=== PATIENT | female | born 1955 | race Caucasian/White ===

== ENCOUNTER → 2019-10-28 13:44 | Outpatient (BNVA) | payer MEDICARE, MEDICAID, SELFPAY | PROVIDERS: Family Provider Family Medicine; PCP Family Medicine; Visit Provider Nurse Practitioner | DX: G89.29 Other chronic pain (principal); M54.42 Lumbago with sciatica, left side; M54.41 Lumbago with sciatica, right side; M54.16 Radiculopathy, lumbar region; M25.511 Pain in right shoulder; M25.512 Pain in left shoulder; R10.12 Left upper quadrant pain; M25.551 Pain in right hip; F17.210 Nicotine dependence, cigarettes, uncomplicated; Z79.891 Long term (current) use of opiate analgesic | CPT/HCPCS: 99214 ==

== ENCOUNTER 2019-12-22 14:32 | Emergency (ER) | payer MEDICARE, MEDICAID, SELFPAY ==
[2019-12-22 14:36] VITALS: BP 157/113; PULSE 102; RESP 17; TEMP 36.6; O2SAT 96; BMI 27.4
[2019-12-22 15:00] VITALS: BP 133/90; PULSE 94; RESP 18; TEMP 36.7; O2SAT 97
--- NOTE | 2019-12-22 15:09 | XR_ITS ---
WS: [id number] XR ribs RT mn 3V w CXR1V [id number] REASON FOR EXAM: fall FINDINGS: Small blebs are seen along the lateral right lower chest. There is also a bleb off the infe rior right hilum. Comparisons were made to 02/14/2016. There is no interval changes. The heart mediastinum are normal. The lungs are well aerated no pneumonia, pleural effusion, pulmonary edema, or mass effect. XR/XR ribs RT mn 3V w CXR1V [id number] IMPRESSION: Small blebs in the right lung base Otherwise negative chest for active pathology.
--- NOTE | 2019-12-22 15:09 | XR_ITS ---
WS: [id number] XR wrist RT min 3V* [id number] REASON FOR EXAM: fall FINDINGS: The first metacarpal shows degenerate changes along is distal aspects articulating with the first phalanx. There is mild degenerate changes in the greater lesser multangular. The ulna and radius are normal. No fractures are seen. 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 No fractures of the wrist.
--- NOTE | 2019-12-22 15:09 | W.ED.FALL ---
HPI - Fall General: Chief Complaint: Fall Stated Complaint: Rib pain and wrist pain Time Seen by Provider: 12/22/19 14:57 History of Present Illness: HPI Narrative: Patient complains about right rib pain and right wrist pain from 2 falls over last 2 days. Patient has a bad hip she says she is going to have surgery on some day and that affects her gait at times and she tripped over her animals. She denies any swelling does take her medication as prescribed MD complaint: fall Onset (ago): day(s) Fall from: standing Fall witnessed: no Place fall occurred: home Loss of consciousness: None Symptoms prior to fall: none Context: tripped/slipped Location of injury: chest Location of injury - extremities: Right: arm Severity: mild Severity scale (1-10): 3 Quality: aching Associated symptoms-after fall: Reports no associated symptoms; Denies abdominal pain, chest pain or headache(s) Review of Systems Narrative: Right rib pain Const: Denies: fever, chills or body aches Eyes: Denies: change in vision or blurry vision ENMT: Denies: throat pain or nasal congestion Card: Denies: chest pain or shortness of breath on exertion Resp: Denies: shortness of breath, productive cough or non-productive cough GI: Denies: abdominal pain, nausea or vomiting Musc: Reports: joint pain; Denies: extremity pain or joint swelling Skin/Breast: Reports: other (Has abrasions to her lips); Denies: rash Neuro: Denies: headache Psych: Denies: anxiety or depression Boubacar/Lymph: Denies: easy bruising FORMERLY [facility], 1928–1983 ED PFSH: Surgical History (Updated 10/28/19 @ 14:40 by TAMMY Bajwa) S/P laparotomy EXPLORATORY AGE 30YRS S/P partial hysterectomy 30 YEARS OLD S/P tubal ligation 1981 Social History Smoking and tobacco status: current every day smoker cigarettes Alcohol intake: current Physical Exam Narrative: EXAM NARRATIVE: Patient has no bruising and or swelling or abrasions noted to any area. Const: COMMON NORMALS: no apparent distress, average body habitus and oriented x3 HENMT: COMMON NORMALS: normocephalic HEAD & SCALP: normal to inspection and normocephalic FACE & SINUS: normal facial exam Eye: COMMON NORMALS: conjunctivae normal GENERAL EYE: normal appearance of both eyes CONJUNCTIVA: Yes conjunctivae normal Neck/C-Spine: COMMON NORMALS: no JVD Chest: COMMONS NORMALS: inspection of chest normal CHEST: Yes other (Tenderness to the right rib area below the breast lateral no bruising or swelling noted no abrasions) Resp: COMMON NORMALS: normal respiratory effort and clear to auscultation bilaterally AUSCULTATION: clear to auscultation bilaterally Cardio: COMMON NORMALS: no JVD, regular rate and regular rhythm RATE: regular rate RHYTHM: regular rhythm GI: COMMON NORMALS: normal to inspection, nondistended, normoactive bowel sounds Extremity: COMMON NORMALS: normal to inspection and full ROM RIGHT UPPER EXTREMITY: Yes wrist (Tender without swelling has good range of motion) Neuro: COMMON NORMALS: oriented x3 Course Vital Signs: Vital signs: Vital Signs Temperature 98.0 F 12/22/19 15:00 Pulse Rate 94 12/22/19 15:00 Respiratory Rate 18 12/22/19 15:00 Blood Pressure 133/90 12/22/19 15:00 Pulse Oximetry 97 12/22/19 15:00 MDM - Fall MDM Narrative: Medical decision making narrative: On discharge patient is asking for a stronger pain medication she already takes oxycodone 5 times per day Discharge Plan Discharge Patient Disposition: Home, Self-Care Clinical Impression: Drug-seeking behavior Contusion of rib on right side Qualifiers: Encounter type: initial encounter Qualified Code(s): S20.211A - Contusion of right front wall of thorax, initial encounter Sprain of wrist, right Qualifiers: Encounter type: initial encounter Qualified Code(s): S63.501A - Unspecified sprain of right wrist, initial encounter Condition: Stable Prescriptions: No Action clopidogrel [Plavix] 75 mg tablet 75 mg PO DAILY RF: 0 cyclobenzaprine 10 mg tablet 10 mg PO TID PRNRF: 0 potassium chloride [Klor-Con M20] 20 mEq tablet,ER particles/crystals 20 meq PO .DAY RF: 0 metoprolol tartrate 50 mg tablet 50 mg PO BID RF: 0 nitroglycerin [Nitrostat] 0.4 mg tablet, sublingual 0.4 mg SUBLINGUAL Q5M PRNRF: 0 fluoxetine [Prozac] 20 mg capsule 20 mg PO .DAY RF: 0 topiramate [Topamax] 50 mg tablet 50 mg PO BID RF: 0 pantoprazole [Protonix] 40 mg tablet,delayed release (DR/EC) 40 mg PO BID RF: 0 ranitidine HCl 150 mg tablet 150 mg PO BID RF: 0 cyclobenzaprine 10 mg tablet 10 mg PO TID Qty: 90 RF: 1 cyclobenzaprine 10 mg tablet 10 mg PO TID MDD 3 Qty: 90 RF: 1 oxycodone 15 mg tablet 15 mg PO .FIVE TIMES PER DAY PRN (Reason: pain) 30 Days Qty: 150 RF: 0 oxycodone 15 mg tablet 15 mg PO .5 times a day PRN (Reason: pain) 30 Days Qty: 150 RF: 0 lisinopril 10 mg tablet 10 mg PO DAILY Qty: 30 RF: 5 Repatha SureClick 140 mg/mL pen injector 140 mg SUBCUT .TWO TIMES A MONTH Qty: 2 RF: 5 Discharge Orders: Discharge Order (Routine); Ordered 12/22/19 Ordered By: Nayan Payan Referrals: Anabel Bishop MD [Primary Care Provider] - Discharge Diet: Usual diet Discharge Activity: Resume usual activity Patient Instructions: Contusion in Adults (ED), Wrist Sprain (ED) Activity Restrictions/Additional Instructions: Follow-up with medical provider as directed. Take medications as prescribed. Return to the ER or your medical provider if condition worsens. Please read and understand discharge instructions. If any questions ask please. Can use ice. Coding Level of Care Code ED Refrigeration Mechanic Helper for Yanet Fwd Exam Comprehensive
[2019-12-22 16:22] VITALS: BP 132/86; PULSE 81; RESP 18; TEMP 36.6; O2SAT 96
== END 2019-12-22 16:23 | disposition home or self-care (01) ==
PROVIDERS: Emergency Provider Nurse Practitioner Family; Family Provider Family Medicine; PCP Family Medicine
DX: Z76.5 Malingerer [conscious simulation] (principal); S20.211A Contusion of right front wall of thorax, initial encounter; S63.501A Unspecified sprain of right wrist, initial encounter; F17.210 Nicotine dependence, cigarettes, uncomplicated; W01.0XXA Fall on same level from slipping, tripping and stumbling without subsequent striking against object, initial encounter; J43.9 Emphysema, unspecified
CPT/HCPCS: 12345; 71101; 73110; 99281; 99283

== ENCOUNTER → 2019-12-27 13:12 | Outpatient (BNVA) | payer MEDICARE, MEDICAID, SELFPAY | PROVIDERS: Family Provider Family Medicine; PCP Family Medicine; Visit Provider Anesthesiology | DX: G89.29 Other chronic pain (principal); M54.16 Radiculopathy, lumbar region; M54.6 Pain in thoracic spine; M25.551 Pain in right hip; F17.210 Nicotine dependence, cigarettes, uncomplicated; Z79.891 Long term (current) use of opiate analgesic | CPT/HCPCS: 99214 ==

== ENCOUNTER → 2020-03-27 14:42 | Outpatient (BNVA) | payer MEDICARE, MEDICAID, SELFPAY | PROVIDERS: Family Provider Family Medicine; PCP Family Medicine; Visit Provider Nurse Practitioner | DX: G89.29 Other chronic pain (principal); M54.16 Radiculopathy, lumbar region; M25.551 Pain in right hip; M54.6 Pain in thoracic spine; F17.210 Nicotine dependence, cigarettes, uncomplicated; Z79.891 Long term (current) use of opiate analgesic; Z91.81 History of falling | CPT/HCPCS: 99214 ==

== ENCOUNTER → 2020-05-22 13:10 | Outpatient (BNVA) | payer MEDICARE, MEDICAID, SELFPAY | PROVIDERS: Family Provider Family Medicine; PCP Family Medicine; Visit Provider Anesthesiology | DX: G89.29 Other chronic pain (principal); M54.16 Radiculopathy, lumbar region; M54.6 Pain in thoracic spine; M25.551 Pain in right hip; F17.210 Nicotine dependence, cigarettes, uncomplicated; Z79.891 Long term (current) use of opiate analgesic; Z71.6 Tobacco abuse counseling | CPT/HCPCS: 99214 ==

== ENCOUNTER → 2020-07-24 13:17 | Outpatient (BNVA) | payer MEDICARE, MEDICAID, SELFPAY | PROVIDERS: Family Provider Family Medicine; PCP Family Medicine; Visit Provider Anesthesiology | DX: G89.29 Other chronic pain (principal); M54.16 Radiculopathy, lumbar region; M25.551 Pain in right hip; M54.6 Pain in thoracic spine; F17.210 Nicotine dependence, cigarettes, uncomplicated; Z79.891 Long term (current) use of opiate analgesic | CPT/HCPCS: 99214 ==

== ENCOUNTER → 2020-08-21 13:04 | Outpatient (BNVA) | payer MEDICARE, MEDICAID, SELFPAY | PROVIDERS: Family Provider Family Medicine; PCP Family Medicine; Visit Provider Anesthesiology | DX: G89.29 Other chronic pain (principal); M25.551 Pain in right hip; M54.16 Radiculopathy, lumbar region; M54.6 Pain in thoracic spine; F17.210 Nicotine dependence, cigarettes, uncomplicated; Z79.891 Long term (current) use of opiate analgesic | CPT/HCPCS: 99214 ==

== ENCOUNTER → 2020-10-23 13:58 | Outpatient (BNVA) | payer MEDICARE, MEDICAID, SELFPAY | PROVIDERS: Family Provider Family Medicine; PCP Family Medicine; Visit Provider Anesthesiology | DX: G89.29 Other chronic pain (principal); M54.16 Radiculopathy, lumbar region; M54.6 Pain in thoracic spine; M25.551 Pain in right hip; F17.210 Nicotine dependence, cigarettes, uncomplicated; Z79.899 Other long term (current) drug therapy; Z79.891 Long term (current) use of opiate analgesic | CPT/HCPCS: 99214 ==

== ENCOUNTER 2020-10-24 22:36 | Emergency (ER) | payer MEDICARE, MEDICAID, SELFPAY ==
[2020-10-24 22:41] VITALS: BP 140/102; PULSE 93; RESP 16; TEMP 36.8; O2SAT 95; BMI 23.9
[2020-10-24 22:46] VITALS: BP 129/91; PULSE 90; O2SAT 93
--- NOTE | 2020-10-24 22:51 | XR_ITS ---
WS: [id number] [facility], 10/24/2020 Clinical Data: bloating abd pain Comparison: None. Findings: There is an air-filled structure in left side of the abdomen which may represent a dilated stomach. G astric outlet obstruction is possible. There is displacement of the small bowel and colon to the righ t of midline. Small bowel loops are not significantly dilated. There is fecal material in the colon. There are clips in the right upper quadrant from a cholecystectomy. No abnormal calcifications are se en. XR/XR KUB portable [id number] Impression: 1. Left upper quadrant density which probably represents a dilated stomach with gastric outlet obstruction.. 2. Displacement of the small bowel and colon to the right of midline but no sma ll bowel or colon obstruction is noted.
--- NOTE | 2020-10-24 22:51 | W.ED.ABDPA2 ---
HPI - Abdominal Pain General: Chief Complaint: Abdominal Pain Stated Complaint: abd pain Time Seen by Provider: 10/24/20 22:46 History of Present Illness: HPI narrative: Patient arise via ambulance with complaint of sudden onset abdominal pain approximately 45 to 50 minutes ago. Pain is gone now. Patient took more pain pills. Patient said she started bloating and abdomen really started hurting and it eventually went away. Patient she has had some recent problems constipation patient is not on stool softener R laxative MD elicited complaint: abdominal pain Pertinent past history: constipation and other (Chronic pain patient) Onset (ago): minute(s) Pain Consistency: now resolved Location: Diffuse Severity: severe Quality: aching and fullness Radiation: none Migration to: no migration Exacerbating factors: nothing Relieving factors: nothing Associated Symptoms: Reports no associated symptoms; Denies chills, fever(s), nausea and vomiting Review of Systems Const: Denies: fever(s), chills or body aches Eyes: Denies: change in vision or blurry vision ENMT: Denies: throat pain or nasal congestion Card: Denies: chest pain or dyspnea on exertion Resp: Denies: dyspnea, productive cough or non-productive cough GI: Reports: abdominal pain; Denies: nausea or vomiting Musc: Denies: extremity pain Skin/Breast: Denies: rash Neuro: Denies: headache(s) Psych: Denies: anxiety or depression Boubacar/Lymph: Denies: easy bruising PFSH ED PFSH: Medical History 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 Chronic right hip pain Encounter for long-term opiate analgesic use Long-term use of high-risk medication continue to monitor use of medication Risk for falls Smoker Counselled regarding smoking cessation Surgical History S/P laparotomy EXPLORATORY AGE 30YRS S/P partial hysterectomy 30 YEARS OLD S/P tubal ligation 1981 Family History Grandmother Diabetes CAD (coronary artery disease) Father Cancer LEUKEMIA Family/Other Cancer COUSIN - LYMPHOMA CAD (coronary artery disease) UNCLE AND AUNT Other Stroke Social History Smoking and tobacco status: current every day smoker cigarettes Packs smoked per day: 0.5 Second hand smoke exposure: Yes Alcohol intake: never History of recent travel: No Physical Exam Const: COMMON NORMALS: no acute distress, average body habitus and patient oriented x3 HENMT: COMMON NORMALS: normocephalic HEAD & SCALP: normal to inspection and normocephalic FACE & SINUS: normal facial exam Eye: COMMON NORMALS: conjunctivae normal GENERAL EYE: appearance normal, both eyes and all related structures CONJUNCTIVA: Yes conjunctivae normal Neck/C-Spine: COMMON NORMALS: no JVD Chest: COMMONS NORMALS: normal inspection of the chest Resp: COMMON NORMALS: normal respiratory effort and clear to auscultation bilaterally AUSCULTATION: clear to auscultation bilaterally Cardio: COMMON NORMALS: no JVD, regular rate and regular rhythm RATE: regular rate RHYTHM: regular rhythm GI: COMMON NORMALS: Normal to inspection, nondistended, normoactive bowel sounds present PALPATION: Yes Tenderness to palpation present (GI) Details: RUQ Extremity: COMMON NORMALS: normal to inspection and full ROM Neuro: COMMON NORMALS: patient oriented x3 Course Vital Signs: Vital signs: Vital Signs Temperature 98.3 F 10/24/20 22:41 Pulse Rate 91 10/25/20 00:09 Respiratory Rate 16 10/24/20 22:41 Blood Pressure 135/96 10/25/20 00:09 Pulse Oximetry 94 10/25/20 00:09 MDM - Abdominal Pain MDM Narrative: Medical decision making narrative: Discussed case with Dr. Presley went over lab results CT radiology findings reviewed labs not consistent with dilated common bile duct bilirubin liver enzymes all look okay. Patient is pain-free. Did go over with patient large amount of bowel gas she has. Need to follow-up with her primary care provider need to get on laxative and stool softeners in relation to her chronic pain which she receives narcotics to pain management. Symptoms worsen recur she is to follow-up here or go see her primary care provider Lab Data: Labs: Lab Results 10/24/20 10/24/20 Range/Units 22:40 22:40 WBC 14.7 H (4.0-10.0) 10^3/ uL RBC 4.65 (4.1-5.3) 10^6/u L Hgb 14.1 (11.5-15.3) g/dL Hct 43.1 (37.0-47.0) % MCV 92.7 (81-99) fL MCH 30.3 (28.0-34.0) pg MCHC 32.7 (30.0-36.0) g/dL RDW 12.2 (12.1-15.1) % Plt Count 391 (130-400) 10^3/c mm MPV 11.2 H (7.4-10.4) fL Neut % (Auto) 55.3 % Lymph % (Auto) 35.2 % [place] % (Auto) 6.8 % Eos % (Auto) 2.1 % Baso % (Auto) 0.3 % Neut # (Auto) 8.12 H (1.8-7.7) 10^3/u L Lymph # (Auto) 5.2 H (0.8-4.8) 10^3/u L [place] # (Auto) 1.0 H (0.2-0.9) 10^3/u L Eos # (Auto) 0.3 (0.0-0.8) 10^3/u L Baso # (Auto) 0.1 (0.0-0.1) 10^3/u L Nucleated RBC % (a uto) 0 % Nucleated RBCs # 0.0 /100WBC Sodium 138 (136-145) mmol/L Potassium 3.2 L (3.5-5.1) mmol/L Chloride 101 (98-107) mmol/L Carbon Dioxide 25 (22-29) mmol/L Anion Gap 15.2 (5-19) BUN 8 (8-23) mg/dL Creatinine 0.8 (0.5-0.9) mg/dL GFR Calculation 72.7 L (90-130) mL/min Glucose 136 H (65-115) mg/dL Calculated Osmolal ity 286 (285-295) mOsm/k g Calcium 10.0 (8.5-10.5) mg/dL Total Bilirubin 0.4 (0.15-1.2) mg/dL AST 20 (0-32) U/L ALT 17 (0-33) U/L Alkaline Phosphata se 125 H (35-105) IU/L Total Protein 7.3 (6.6-8.7) g/dL Albumin 4.4 (3.5-5.2) g/dL Globulin 2.9 (1.3-4.6) g/dL Lipase 21 (13-60) U/L Discharge Plan Discharge Patient Disposition: Home Clinical Impression: Abdominal pain Qualifiers: Abdominal location: generalized Qualified Code(s): R10.84 - Generalized abdominal pain Condition: Stable Prescriptions: No Action fluoxetine [Prozac] 20 mg capsule 20 mg PO .DAY RF: 0 topiramate [Topamax] 50 mg tablet 50 mg PO BID RF: 0 oxycodone 15 mg tablet 15 mg PO .5 times a day PRN (Reason: pain) 30 Days Qty: 150 RF: 0 morphine 15 mg tablet extended release 15 mg PO Q12H 30 Days Qty: 60 RF: 0 cyclobenzaprine 10 mg tablet 10 mg PO TID PRN (Reason: muscle spasm) Qty: 90 RF: 1 morphine 15 mg tablet extended release 15 mg PO Q12H 30 Days Qty: 60 RF: 0 oxycodone 15 mg tablet 15 mg PO .5 times a day PRN (Reason: pain) 30 Days Qty: 150 RF: 0 pantoprazole [Protonix] 40 mg tablet,delayed release (DR/EC) 40 mg PO BID RF: 0 nitroglycerin [Nitrostat] 0.4 mg tablet, sublingual 0.4 mg SUBLINGUAL Q5M PRN (Reason: chest pain) Qty: 1 RF: 0 metoprolol tartrate 50 mg tablet 50 mg PO BID 90 Days Qty: 180 RF: 3 potassium chloride [Klor-Con M20] 20 mEq tablet,ER particles/crystals 20 meq PO .DAY Qty: 90 RF: 3 lisinopril 10 mg tablet 10 mg PO DAILY Qty: 30 RF: 5 evolocumab [Repatha SureClick] 140 mg/mL pen injector 140 mg SUBCUT .q2wks Qty: 2 RF: 6 clopidogrel [Plavix] 75 mg tablet 75 mg PO DAILY Qty: 90 RF: 3 Discharge Orders: Discharge ED (Routine); Ordered 10/25/20 Ordered By: Pj Payan Referrals: Anabel Bishop MD [Primary Care Provider] - Discharge Diet: Advance as tolerated Discharge Activity: Resume usual activity Patient Instructions: Abdominal Pain (ED) Activity Restrictions/Additional Instructions: Follow-up your primary care provider if symptoms continue. Recommend clear liquid diet next 24 hours. Recommend stool softeners and laxative also with chronic narcotic pain use. Coding Level of Care Code ED Optical Technician for Chg Fwd Exam Comprehensive
[2020-10-24 23:06] LABS: Basophils # 0.1 10^3/uL (0.0-0.1); Basophils % 0.3 %; Eosinophils # 0.3 10^3/uL (0.0-0.8); Eosinophils % 2.1 %; Hematocrit 43.1 % (37.0-47.0); Hemoglobin 14.1 g/dL (11.5-15.3); Lymphocytes # 5.2 10^3/uL (0.8-4.8); Lymphocytes % 35.2 %; Mean Corpuscular HGB Conc 32.7 g/dL (30.0-36.0); Mean Corpuscular Hemoglobin 30.3 pg (28.0-34.0); Mean Corpuscular Volume 92.7 fL (81-99); Mean Platelet Volume 11.2 fL (7.4-10.4); Monocytes % 6.8 %; Neutrophils # 8.12 10^3/uL (1.8-7.7); Neutrophils % 55.3 %; Nucleated Red Blood Cells % 0 %; Platelet Count 391 10^3/cmm (130-400); Red Blood Count 4.65 10^6/uL (4.1-5.3); Red Cell Distribution Width 12.2 % (12.1-15.1); White Blood Count 14.7 10^3/uL (4.0-10.0)
--- NOTE | 2020-10-24 23:09 | CTR_ITS ---
PROCEDURE INFORMATION: Exam: CT Abdomen And Pelvis With Contrast Exam date and time: 10/24/2020 11:36 PM Age: 64 years old Clinical indication: Abdominal pain; Prior surgery; Surgery type: Gb. Appy. Hysterectomy. ; Patient HX: Periumbilical pain with nausea; Additional info: Abd pain TECHNIQUE: Imaging protocol: Computed tomography of the abdomen and pelvis with intravenous contrast. Radiation optimization: All CT scans at this facility use at least one of these dose optimization techniques: automated exposure control; mA and/or kV adjustment per patient size (includes targeted exams where dose is matched to clinical indication); or iterative reconstruction. Contrast material: OMNI 300; Contrast volume: 95 ml; Contrast route: INTRAVENOUS (IV); COMPARISON: 1. CT abdomen pelvis w con* [id number] 07/23/2016 11:[address] abdomen w con* [id number] 10/14/2018 9:37:12 AM RADIATION DOSE METRICS: Total DLP (mGy-cm): 393.88 FINDINGS: Liver: Normal. No mass. Gallbladder and bile ducts: There has been a cholecystectomy. There is moderate intrahepatic biliary tract dilatation increased from previous. There is dilated common bile duct measuring up to 11 mm in diameter. Multiple gallstones are seen in the distal common bile duct. Pancreas: Pancreas appears somewhat atrophic. Spleen: The spleen is normal. Adrenal glands: The adrenal glands are normal. Kidneys and ureters: There is a large simple cyst in the upper pole of the right kidney and a smaller cyst in the lower pole not significantly changed from previous. The left kidney is normal. There is no evidence of renal or ureteral calcifications. There is no evidence of hydronephrosis. Stomach and bowel: There is no evidence of colitis/diverticulitis. Stomach is markedly distended with fluid without finding to suggest gastric outlet obstruction. The gastric distention could be related to recent oral intake rather than pathology. There is increased fluid seen through the proximal small bowel, the distal bowel loops are nondilated and unremarkable. Findings could represent ileus, partial obstruction, or more likely the result of recent fluid ingestion. Correlation with clinical findings is suggested. Appendix: Not identified Intraperitoneal space: Unremarkable. No free air. No significant fluid collection. Vasculature: The aorta demonstrates mild atherosclerotic calcification. There is no evidence of an abdominal aortic aneurysm. Lymph nodes: There is no evidence of lymphadenopathy. Urinary bladder: Unremarkable as visualized. Reproductive: There has been a hysterectomy. Bones/joints: Unremarkable. No acute fracture. Soft tissues: Unremarkable. CT/CT abdomen pelvis w con* [id number] IMPRESSION: 1. Choledocholithiasis and biliary tract dilatation. 2. Nonspecific gastric and small bowel fluid distention. Is uncertain whether this is related to ileus, partial obstruction, or more likely the fluid ingestion. Radiation Dose CTDIVOL = (mGy): DLP = 393.88 (mGy-cm)
[2020-10-24 23:27] LABS: Alanine Aminotransferase 17 U/L (0-33); Albumin Level 4.4 g/dL (3.5-5.2); Alkaline Phosphatase 125 IU/L (35-105); Anion Gap 15.2 (5-19); Aspartate Amino Transferase 20 U/L (0-32); Blood Urea Nitrogen 8 mg/dL (8-23); Carbon Dioxide 25 mmol/L (22-29); Chloride 101 mmol/L (98-107); Globulin 2.9 g/dL (1.3-4.6); Glomerular Filtration Rate 72.7 mL/min (90-130); Glucose 136 mg/dL (65-115); Lipase 21 U/L (13-60); Osmolality Calculated 286 mOsm/kg (285-295); Potassium 3.2 mmol/L (3.5-5.1); Sodium 138 mmol/L (136-145); Total Bilirubin 0.4 mg/dL (0.15-1.2); Total Protein 7.3 g/dL (6.6-8.7)
[2020-10-24 23:38] VITALS: BP 110/92; PULSE 98; O2SAT 92
[2020-10-24] MEDS: iohexol 300 mg/mL 100 mL Btl IV (23:53)
[2020-10-25 00:09] VITALS: BP 135/96; PULSE 91; O2SAT 94
[2020-10-25] MEDS: potassium chloride ER 20 mEq Tablet PO (00:13)
[2020-10-25 01:16] VITALS: BP 99/70; PULSE 90; O2SAT 94
== END 2020-10-25 01:26 | disposition home or self-care (01) ==
PROVIDERS: Emergency Provider Nurse Practitioner Family; PCP Family Medicine
DX: R10.84 Generalized abdominal pain (principal); Z79.02 Long term (current) use of antithrombotics/antiplatelets; F17.210 Nicotine dependence, cigarettes, uncomplicated
CPT/HCPCS: 12345; 74018; 74177; 80053; 83690; 85025; 99283; Q9967

== ENCOUNTER → 2020-11-22 13:28 | Outpatient (BNVA) | payer MEDICARE, MEDICAID, SELFPAY | PROVIDERS: PCP Family Medicine; Visit Provider Nurse Practitioner | DX: G89.29 Other chronic pain (principal); M25.551 Pain in right hip; M54.16 Radiculopathy, lumbar region; M54.6 Pain in thoracic spine; F17.200 Nicotine dependence, unspecified, uncomplicated; Z79.891 Long term (current) use of opiate analgesic | CPT/HCPCS: 99215 ==

== ENCOUNTER → 2020-12-26 14:56 | Outpatient (BNVA) | payer MEDICARE, MEDICAID, SELFPAY | PROVIDERS: PCP Family Medicine; Visit Provider Internal Medicine Cardiovascular Disease | DX: E78.5 Hyperlipidemia, unspecified (principal); R07.9 Chest pain, unspecified; I25.118 Atherosclerotic heart disease of native coronary artery with other forms of angina pectoris | CPT/HCPCS: 80061; 80076 ==

== ENCOUNTER → 2021-01-18 13:07 | Outpatient (BNVA) | payer MEDICARE, MEDICAID, SELFPAY | PROVIDERS: PCP Family Medicine; Visit Provider Nurse Practitioner | DX: G89.29 Other chronic pain (principal); M54.16 Radiculopathy, lumbar region; M54.6 Pain in thoracic spine; M25.551 Pain in right hip; F17.210 Nicotine dependence, cigarettes, uncomplicated; Z71.6 Tobacco abuse counseling; Z79.891 Long term (current) use of opiate analgesic | CPT/HCPCS: 99213; 99214 ==

== ENCOUNTER 2021-01-31 12:58 | Outpatient (CLI) | payer MEDICARE, MEDICAID, SELFPAY ==
--- NOTE | 2021-01-31 12:00 | CT_ITS ---
WS: [id number] CT ABDOMEN PELVIS TECHNIQUE: Contrast-enhanced CT of the abdomen and pelvis with coronal and sagittal reformatted image s. CLINICAL INFORMATION: LUQ PAIN COMPARISON: CT October 24, 2020 DLP: 1002.[address] scans at [facility] use at least one of these dose optimization techniques: automat ed exposure control; mA and/or kV adjustment per patient size (includes targeted exams where dose is matched to clinical indication); or iterative reconstruction. FINDINGS: Diffuse fatty infiltration of the liver. Moderate intrahepatic biliary duct dilatation similar to pre vious. Prior cholecystectomy. Bile duct dilatation measuring 9 mm at the head of pancreas is unchange d. Calculi in the distal common bile duct appear improved but persistent compared to previous. Normal GE junction. Normal spleen. Lung bases are well aerated. Fatty atrophy of the pancreas. Adrenal glands are normal. Normal renal parenchymal enhancement. No hydronephrosis. Right renal cysts largest in the right upper pole measuring 4.4 cm is unchanged. Aortic calcification. Normal caliber abdominal aorta. Sigmoid diverticulosis. No evidence of acute diverticulitis. No evidence of high-grade small or large bowel obstruction. No abdominal or pelvic lymphadenopathy. No inguinal lymphadenopathy. Mild lumbar curve. Prior hysterectomy. CT/CT abdomen pelvis w con* [id number] IMPRESSION: 1. Diffuse fatty infiltration of the liver with moderate intrahepatic biliary ductal dilatation similar to previous. 2. Prior cholecystectomy. 3. Dilated common bile duct measuring 9 mm at the pancreatic head with choledo cholithiasis. This appears improved but persistent compared to previous. 4. No free fluid in the abdomen or pelvis. 5. Sigmoid diverticulosis. No evidence of small or large bowel obstruction. 6. Normal caliber abdominal aorta. 7. Stable right renal cysts. 8. Urine distended bladder. Prior hysterectomy.
[2021-01-31] MEDS: iohexol 300 mg/mL 50 mL Btl PO (13:12)
[2021-01-31] MEDS: iohexol 300 mg/mL 100 mL Btl IV (13:53)
== END 2021-01-31 12:59 | disposition home or self-care (01) ==
PROVIDERS: PCP Family Medicine; Visit Provider Family Medicine
DX: R10.12 Left upper quadrant pain (principal); K76.0 Fatty (change of) liver, not elsewhere classified; Z90.49 Acquired absence of other specified parts of digestive tract; K57.30 Diverticulosis of large intestine without perforation or abscess without bleeding; Q61.02 Congenital multiple renal cysts; Z90.710 Acquired absence of both cervix and uterus
CPT/HCPCS: 74177; Q9967

== ENCOUNTER → 2021-03-20 13:41 | Outpatient (BNVA) | payer MEDICARE, MEDICAID, SELFPAY | PROVIDERS: PCP Family Medicine; Visit Provider Anesthesiology | DX: G89.29 Other chronic pain (principal); M54.16 Radiculopathy, lumbar region; M54.6 Pain in thoracic spine; M25.551 Pain in right hip; F17.210 Nicotine dependence, cigarettes, uncomplicated; Z79.891 Long term (current) use of opiate analgesic; Z79.899 Other long term (current) drug therapy | CPT/HCPCS: 99214 ==

== ENCOUNTER → 2021-05-17 13:50 | Outpatient (BNVA) | payer MEDICARE, MEDICAID, SELFPAY | PROVIDERS: PCP Family Medicine; Visit Provider Nurse Practitioner | DX: G89.29 Other chronic pain (principal); M54.6 Pain in thoracic spine; M25.551 Pain in right hip; M54.16 Radiculopathy, lumbar region; F17.210 Nicotine dependence, cigarettes, uncomplicated; Z79.891 Long term (current) use of opiate analgesic; Z71.6 Tobacco abuse counseling | CPT/HCPCS: 99213; 99214 ==

== ENCOUNTER → 2021-07-19 12:57 | Outpatient (BNVA) | payer MEDICARE, MEDICAID, SELFPAY | PROVIDERS: PCP Family Medicine; Visit Provider Anesthesiology | DX: G89.29 Other chronic pain (principal); M54.6 Pain in thoracic spine; M54.16 Radiculopathy, lumbar region; M25.551 Pain in right hip; M25.552 Pain in left hip; F17.210 Nicotine dependence, cigarettes, uncomplicated; Z79.891 Long term (current) use of opiate analgesic | CPT/HCPCS: 99213; 99214 ==

== ENCOUNTER 2021-08-24 14:59 | Emergency (ER) | payer MEDICARE, MEDICAID, SELFPAY ==
[2021-08-24] VITALS (7 sets, daily range): BP systolic 138–160; BP diastolic 89–99; PULSE 83–97; RESP 16–34; TEMP 36.4–36.8; O2SAT 95–100; BMI 28.3
--- NOTE | 2021-08-24 15:24 | CTR_ITS ---
PROCEDURE INFORMATION: Exam: CT Abdomen And Pelvis With Contrast Exam date and time: 08/24/2021 3:24 PM Age: 65 years old Clinical indication: Abdominal pain; Prior surgery; Surgery date: 6+ months; Surgery type: Ex lap, hyst, gb; Patient HX: C/O epigastric pain w n/v/d; Additional info: Periumbilical and epigastric pain w/ nausea and vomiting TECHNIQUE: Imaging protocol: Computed tomography of the abdomen and pelvis with contrast. Radiation optimization: All CT scans at this facility use at least one of these dose optimization techniques: automated exposure control; mA and/or kV adjustment per patient size (includes targeted exams where dose is matched to clinical indication); or iterative reconstruction. Contrast material: OMNI 350; Contrast volume: 95 ml; Contrast route: INTRAVENOUS (IV); COMPARISON: CT abdomen pelvis w con* [id number] 01/31/2021 1:50 PM RADIATION DOSE METRICS: Total DLP (mGy-cm): 728.83 FINDINGS: Lungs: Mild atelectasis versus fibrosis noted at the lung bases. Liver: Mild hepatic steatosis noted. No hepatic mass. Gallbladder and bile ducts: The gallbladder is surgically absent. There is intrahepatic and extrahepatic biliary dilatation noted. The distal common duct measures up to 14 mm in diameter. There is a 12 mm minimally calcified calculus suspected in the distal common duct. Pancreas: The pancreas is normal in appearance. No pancreatic duct dilatation. Spleen: The spleen is normal in size and appearance. Adrenal glands: The adrenal glands appear within normal limits. Kidneys and ureters: Mild cortical scarring left kidney. Simple appearing right renal cysts measuring up to 5 cm. No calculus or hydronephrosis. Stomach and bowel: No acute gastric abnormality demonstrated. The small bowel is unremarkable as demonstrated. No acute abnormality/inflammatory change of the colon. Appendix: No evidence of appendicitis. Intraperitoneal space: No pneumoperitoneum. No significant fluid collection. Vasculature: Atherosclerosis of the aorta and iliac arteries. No abdominal aortic aneurysm. Lymph nodes: No pathologically enlarged lymph nodes are demonstrated. Urinary bladder: The urinary bladder is unremarkable in appearance. Reproductive: The uterus is not visualized, consistent with hysterectomy. Bones/joints: Degenerative changes of the lumbar spine and bilateral hips noted. Soft tissues: The soft tissues appear unremarkable. CT/CT abdomen pelvis w con* [id number] IMPRESSION: 1. The gallbladder is surgically absent. 2. Intrahepatic and extrahepatic biliary dilatation is present. This has worsened when compared to 01/31/2021. 3. Suspected choledocholithiasis. There is a 12 mm minimally calcified calculus identified in the distal common duct. Consider MRCP and/or gastroenterology consult for further assessment. 4. No acute bowel abnormality noted. COMMENTS: Consistent with the [employer]'s Incidental Findings Committee white paper (J Am Gloria Radiol 2018): Any incidental renal lesion less than 1 cm or classified as too small to characterize, or any incidental cystic renal lesion characterized as simple-appearing, is likely benign. No follow-up imaging is recommended for these lesions per consensus recommendations based on imaging criteria. Radiation Dose CTDIVOL = (mGy): DLP = 728.83 (mGy-cm)
--- NOTE | 2021-08-24 15:26 | W.ED.NAVMDI ---
Documented by User: TAMMY Yee 08/25/21 07:06 HPI - Nausea/Vomiting/Diarrhea General: Chief complaint: Nausea/Vomiting/Diarrhea Stated complaint: N/V; EPIGASTRIC PAIN Time Seen by Provider: 08/24/21 15:10 History of Present Illness: HPI Narrative: Patient is a 65-year-old female comes to the ED with abdominal pain, nausea and vomiting. Symptoms started this morning when she woke up. She says her abdominal pain is rated 10 out of 10 and is located in the epigastric region and periumbilical. Yesterday patient felt fine and was doing well. She has had multiple episodes of emesis this morning has not been able to keep any food or fluids down. She has not been able to keep any medicines down either. Her last meal was [employer] chicken mashed potatoes at 9 PM last night. She has had a prior cholecystectomy approximately 4 years ago. Denies any fever, chills, bloody emesis, bladder or bowel symptoms. Associated nausea: Yes Associated symtoms: Reports nausea; Denies change in vision, chest pain, dysuria, fatigue, headache(s) or palpitations Review of Systems Const: Denies: fever(s), chills or fatigue Eyes: Denies: change in vision or eye discomfort ENMT: Denies: throat pain, odynophagia, nasal discharge or nasal congestion Card: Denies: chest pain, palpitations, edema, swelling of feet/ankles, dyspnea on exertion or orthopnea Resp: Denies: dyspnea, productive cough or non-productive cough GI: Reports: abdominal pain, nausea and vomiting; Denies: diarrhea, constipation or hematochezia : Denies: flank pain, dysuria or hematuria Musc: Denies: neck pain, back pain or extremity swelling Skin/Breast: Denies: rash or new lesions Neuro: Denies: headache(s), numbness in extremities or weakness in extremities PFSH ED PFSH: Medical History 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 Chronic right hip pain Encounter for long-term opiate analgesic use Long-term use of high-risk medication continue to monitor use of medication Risk for falls Smoker Counselled regarding smoking cessation Surgical History S/P laparotomy EXPLORATORY AGE 30YRS S/P partial hysterectomy 30 YEARS OLD S/P tubal ligation 1981 Family History Grandmother Diabetes CAD (coronary artery disease) Father Cancer LEUKEMIA Family/Other Cancer COUSIN - LYMPHOMA CAD (coronary artery disease) UNCLE AND AUNT Diabetes Mother Suicide Denies family history of Clotting disorder Dementia Chronic kidney disease (CKD) Anesthesia complication Bleeding disorder Lung disease Stroke Social History Alcohol intake: never History of recent travel: No Physical Exam Narrative: EXAM NARRATIVE: pt was actively vomiting during exam. Const: COMMON NORMALS: patient oriented x3 and alert GENERAL APPEARANCE: cooperative and in distress (pt actively vomiting) HENMT: COMMON NORMALS: normocephalic HEAD & SCALP: normocephalic MOUTH: Normal oral and palatal mucosa present THROAT: posterior oropharynx normal and uvula midline Eye: COMMON NORMALS: Equal, round and reactive pupils present PUPIL: Yes Equal, round and reactive pupils present Neck/C-Spine: COMMON NORMALS: supple GENERAL: Yes normal visual inspection Resp: COMMON NORMALS: normal respiratory effort, No retractions, No use of accessory muscles and clear to auscultation bilaterally AUSCULTATION: clear to auscultation bilaterally Cardio: COMMON NORMALS: regular rate, regular rhythm, S1 normal heart sound present, S2 normal heart sound present, No gallops present (Cardio), No clicks present (Cardio), No murmurs present (Cardio) and Peripheral pulses 2+ throughout RATE: regular rate RHYTHM: regular rhythm HEART SOUNDS: S1 normal heart sound present and S2 normal heart sound present PERIPHERAL PULSES: Peripheral pulses 2+ throughout GI: COMMON NORMALS: Normal to inspection, nondistended, normoactive bowel sounds present, Soft to palpation and no masses PALPATION: Yes Soft to palpation and Yes Tenderness to palpation present (GI) Details: LUQ and other (epigastric and periumbilical) : COMMON NORMALS: Yes no CVA tenderness BLADDER/KIDNEY EXAM: Yes no CVA tenderness Back/Pelvis: COMMON NORMALS: no CVA tenderness Extremity: COMMON NORMALS: normal to inspection Neuro: COMMON NORMALS: patient oriented x3 and moves all extremities SENSORIUM/ORIENTATION: Yes alert Skin: GENERAL SKIN EXAM: dry skin Course Vital Signs: Vital signs: Vital Signs Temperature 98.3 F 08/24/21 15:24 Pulse Rate 95 08/24/21 22:26 Respiratory Rate 16 08/24/21 22:26 Blood Pressure 143/89 08/24/21 22:26 Pulse Oximetry 95 08/24/21 22:26 MDM - Nausea/Vomiting/Diarrhea Lab Data: Attestation: I reviewed the patient's lab results. Labs: Lab Results 08/24/21 08/24/21 08/24/21 15:25 15:25 15:25 WBC 6.9 10^3/uL 10^3/ uL (4.0-10.0) RBC 4.41 10^6/uL 10^6 /uL (4.1-5.3) Hgb 13.8 g/dL g/dL (11.5-15.3) Hct 41.1 % % (37.0-47.0) MCV 93.2 fl fl (81-99) MCH 31.3 pg pg (28.0-34.0) MCHC 33.6 g/dL g/dL (30.0-36.0) RDW 11.9 % L % (12.1-15.1) Plt Count 208 10^3/cmm 10^3 /cmm (130-400) MPV 11.2 fL H fL (7.4-10.4) Neut % (Auto) 94.0 % % Lymph % (Auto) 3.6 % % [place] % (Auto) 1.7 % % Eos % (Auto) 0.1 % % Baso % (Auto) 0.3 % % Neut # (Auto) 6.52 10^3/uL 10^3 /uL (1.8-7.7) Lymph # (Auto) 0.3 10^3/uL L 10^ 3/uL (0.8-4.8) [place] # (Auto) 0.1 10^3/uL L 10^ 3/uL (0.2-0.9) Eos # (Auto) 0.0 10^3/uL 10^3/ uL (0.0-0.8) Baso # (Auto) 0.0 10^3/uL 10^3/ uL (0.0-0.1) Nucleated RBC % (a uto) 0 % % Nucleated RBCs # 0.0 /100WBC /100W BC Sodium Cancelled Potassium Cancelled Chloride Cancelled Carbon Dioxide Cancelled Anion Gap Cancelled BUN Cancelled Creatinine Cancelled GFR Calculation Cancelled Glucose Cancelled Calculated Osmolal ity Cancelled Lactic Acid 2.8 mmol/L H mmol /L (0.5-2.2) Lactic Acid (Sepsi s) Calcium Cancelled Total Bilirubin Cancelled AST Cancelled ALT Cancelled Alkaline Phosphata se Cancelled Total Protein Cancelled Albumin Cancelled Globulin Cancelled Lipase Cancelled Urine Color Urine Appearance Urine pH Ur Specific Gravit y Urine Protein Urine Glucose (UA) Urine Ketones Urine Blood Urine Nitrate Urine Bilirubin Prot Sulfosalicyli c Acd Urine Urobilinogen Ur Leukocyte Lorraine ase H. pylori IgG Anti body Hepatitis A IgM Ab Hep Bs Antigen Hep Bs Antibody Hep B Core Total A b Hepatitis C Antibo dy SARS-CoV-2 Ag (Rap id) 08/24/21 08/24/21 08/24/21 15:59 15:59 15:59 WBC RBC Hgb Hct MCV MCH MCHC RDW Plt Count MPV Neut % (Auto) Lymph % (Auto) [place] % (Auto) Eos % (Auto) Baso % (Auto) Neut # (Auto) Lymph # (Auto) [place] # (Auto) Eos # (Auto) Baso # (Auto) Nucleated RBC % (a uto) Nucleated RBCs # Sodium 136 mmol/L mmol/L (136-145) Potassium 3.6 mmol/L mmol/L (3.5-5.1) Chloride 101 mmol/L mmol/L (98-107) Carbon Dioxide 21 mmol/L L mmol/ L (22-29) Anion Gap 17.6 (5-19) BUN 9 mg/dL mg/dL (8-23) Creatinine 0.5 mg/dL mg/dL (0.5-0.9) GFR Calculation 124.6 mL/min mL/m in (90-130) Glucose 137 mg/dL H mg/dL (65-115) Calculated Osmolal ity 283 mOsm/kg L mOs m/kg (285-295) Lactic Acid Lactic Acid (Sepsi s) Calcium 9.6 mg/dL mg/dL (8.5-10.5) Total Bilirubin 2.3 mg/dL H mg/dL (0.15-1.2) AST 1127 U/L H U/L (0-32) ALT 595 U/L H U/L (0-33) Alkaline Phosphata se 323 IU/L H IU/L (35-105) Total Protein 6.8 g/dL g/dL (6.6-8.7) Albumin 4.0 g/dL g/dL (3.5-5.2) Globulin 2.8 g/dL g/dL (1.3-4.6) Lipase 34 U/L U/L (13-60) Urine Color Urine Appearance Urine pH Ur Specific Gravit y Urine Protein Urine Glucose (UA) Urine Ketones Urine Blood Urine Nitrate Urine Bilirubin Prot Sulfosalicyli c Acd Urine Urobilinogen Ur Leukocyte Lorraine ase H. pylori IgG Anti body Negative (Negative) Hepatitis A IgM Ab Non-reactive (Nonreactive) Hep Bs Antigen Non-reactive (Nonreactive) Hep Bs Antibody 4.7 L (11.5-1000) Hep B Core Total A b Non-reactive (Nonreactive) Hepatitis C Antibo dy Non-reactive (Nonreactive) SARS-CoV-2 Ag (Rap id) 08/24/21 08/24/21 08/24/21 18:24 19:48 19:48 WBC RBC Hgb Hct MCV MCH MCHC RDW Plt Count MPV Neut % (Auto) Lymph % (Auto) [place] % (Auto) Eos % (Auto) Baso % (Auto) Neut # (Auto) Lymph # (Auto) [place] # (Auto) Eos # (Auto) Baso # (Auto) Nucleated RBC % (a uto) Nucleated RBCs # Sodium Potassium Chloride Carbon Dioxide Anion Gap BUN Creatinine GFR Calculation Glucose Calculated Osmolal ity Lactic Acid Lactic Acid (Sepsi s) 3.3 mmol/L H mmol /L (0.5-2.2) Calcium Total Bilirubin AST ALT Alkaline Phosphata se Total Protein Albumin Globulin Lipase Urine Color Yellow (Yellow) Urine Appearance Clear (CLEAR) Urine pH 8 H (5-7) Ur Specific Gravit y 1.005 (1.005-1.030) Urine Protein Neg (Negative) Urine Glucose (UA) Norm (Normal) Urine Ketones Negative (Negative) Urine Blood Neg (Negative) Urine Nitrate Negative (Negative) Urine Bilirubin Neg (Negative) Prot Sulfosalicyli c Acd Negative (Negative) Urine Urobilinogen Norm mg/dL mg/dL (Negative) Ur Leukocyte Lorraine ase Negative (Negative) H. pylori IgG Anti body Hepatitis A IgM Ab Hep Bs Antigen Hep Bs Antibody Hep B Core Total A b Hepatitis C Antibo dy SARS-CoV-2 Ag (Rap id) Negative (Negative) Discharge Plan Discharge Patient Disposition: Xfer Short-Term Hosp Clinical Impression: Choledocholithiasis Condition: Stable Referrals: Anabel Bishop MD [Primary Care Provider] - Sign Out Sign Out Data: Patient Sign Out occurred on 08/24/21 at 17:22. Patient's care was discussed, and care was transferred from to TAMMY Kumar. Coding Level of Care Code ED Sludge Control Attendant for Chg Fwd Exam Comprehensive Documented by User: TAMMY Kumar 08/24/21 21:00 HPI - Nausea/Vomiting/Diarrhea General: Chief complaint: Nausea/Vomiting/Diarrhea Stated complaint: N/V; EPIGASTRIC PAIN Time Seen by Provider: 08/24/21 15:10 PFSH ED PFSH: Medical History 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 Chronic right hip pain Encounter for long-term opiate analgesic use Long-term use of high-risk medication continue to monitor use of medication Risk for falls Smoker Counselled regarding smoking cessation Surgical History S/P laparotomy EXPLORATORY AGE 30YRS S/P partial hysterectomy 30 YEARS OLD S/P tubal ligation 1981 Family History Grandmother Diabetes CAD (coronary artery disease) Father Cancer LEUKEMIA Family/Other Cancer COUSIN - LYMPHOMA CAD (coronary artery disease) UNCLE AND AUNT Diabetes Mother Suicide Denies family history of Clotting disorder Dementia Chronic kidney disease (CKD) Anesthesia complication Bleeding disorder Lung disease Stroke Social History Alcohol intake: never History of recent travel: No Course Consultations: Consultation #1: Dr. Lovelace/hospitalist @ [facility]-accepts patient Dr. Dutta @ [facility]-accepts patient Vital Signs: Vital signs: Vital Signs Temperature 98.3 F 08/24/21 15:24 Pulse Rate 95 08/24/21 22:26 Respiratory Rate 16 08/24/21 22:26 Blood Pressure 143/89 08/24/21 22:26 Pulse Oximetry 95 08/24/21 22:26 MDM - Nausea/Vomiting/Diarrhea MDM Narrative: Medical decision making narrative: Patient is a 65-year-old female here for upper abdominal pain, nausea, and vomiting that began this morning. Patient has elevations to her liver enzymes with a T bili of 2.3, AST at 1127, ALT 595, alk phos 323. She has a normal lipase. Lactate was elevated. Hepatitis panel is negative. On her CT scan she has a 12 mm stone in her CBD. Interestingly enough she has had this finding on [address] scans before however they have never been accompanied with elevated LFTs. Patient has been started on IV fluids, antibiotics, and will arrange for transfer for ERCP. Spoke to Dr. Cerna who agree with plan for patient. Lab Data: Labs: Lab Results 08/24/21 08/24/21 08/24/21 15:25 15:25 15:25 WBC 6.9 10^3/uL 10^3/ uL (4.0-10.0) RBC 4.41 10^6/uL 10^6 /uL (4.1-5.3) Hgb 13.8 g/dL g/dL (11.5-15.3) Hct 41.1 % % (37.0-47.0) MCV 93.2 fl fl (81-99) MCH 31.3 pg pg (28.0-34.0) MCHC 33.6 g/dL g/dL (30.0-36.0) RDW 11.9 % L % (12.1-15.1) Plt Count 208 10^3/cmm 10^3 /cmm (130-400) MPV 11.2 fL H fL (7.4-10.4) Neut % (Auto) 94.0 % % Lymph % (Auto) 3.6 % % [place] % (Auto) 1.7 % % Eos % (Auto) 0.1 % % Baso % (Auto) 0.3 % % Neut # (Auto) 6.52 10^3/uL 10^3 /uL (1.8-7.7) Lymph # (Auto) 0.3 10^3/uL L 10^ 3/uL (0.8-4.8) [place] # (Auto) 0.1 10^3/uL L 10^ 3/uL (0.2-0.9) Eos # (Auto) 0.0 10^3/uL 10^3/ uL (0.0-0.8) Baso # (Auto) 0.0 10^3/uL 10^3/ uL (0.0-0.1) Nucleated RBC % (a uto) 0 % % Nucleated RBCs # 0.0 /100WBC /100W BC Sodium Cancelled Potassium Cancelled Chloride Cancelled Carbon Dioxide Cancelled Anion Gap Cancelled BUN Cancelled Creatinine Cancelled GFR Calculation Cancelled Glucose Cancelled Calculated Osmolal ity Cancelled Lactic Acid 2.8 mmol/L H mmol /L (0.5-2.2) Lactic Acid (Sepsi s) Calcium Cancelled Total Bilirubin Cancelled AST Cancelled ALT Cancelled Alkaline Phosphata se Cancelled Total Protein Cancelled Albumin Cancelled Globulin Cancelled Lipase Cancelled Urine Color Urine Appearance Urine pH Ur Specific Gravit y Urine Protein Urine Glucose (UA) Urine Ketones Urine Blood Urine Nitrate Urine Bilirubin Prot Sulfosalicyli c Acd Urine Urobilinogen Ur Leukocyte Lorraine ase H. pylori IgG Anti body Hepatitis A IgM Ab Hep Bs Antigen Hep Bs Antibody Hep B Core Total A b Hepatitis C Antibo dy SARS-CoV-2 Ag (Rap id) 08/24/21 08/24/21 08/24/21 15:59 15:59 15:59 WBC RBC Hgb Hct MCV MCH MCHC RDW Plt Count MPV Neut % (Auto) Lymph % (Auto) [place] % (Auto) Eos % (Auto) Baso % (Auto) Neut # (Auto) Lymph # (Auto) [place] # (Auto) Eos # (Auto) Baso # (Auto) Nucleated RBC % (a uto) Nucleated RBCs # Sodium 136 mmol/L mmol/L (136-145) Potassium 3.6 mmol/L mmol/L (3.5-5.1) Chloride 101 mmol/L mmol/L (98-107) Carbon Dioxide 21 mmol/L L mmol/ L (22-29) Anion Gap 17.6 (5-19) BUN 9 mg/dL mg/dL (8-23) Creatinine 0.5 mg/dL mg/dL (0.5-0.9) GFR Calculation 124.6 mL/min mL/m in (90-130) Glucose 137 mg/dL H mg/dL (65-115) Calculated Osmolal ity 283 mOsm/kg L mOs m/kg (285-295) Lactic Acid Lactic Acid (Sepsi s) Calcium 9.6 mg/dL mg/dL (8.5-10.5) Total Bilirubin 2.3 mg/dL H mg/dL (0.15-1.2) AST 1127 U/L H U/L (0-32) ALT 595 U/L H U/L (0-33) Alkaline Phosphata se 323 IU/L H IU/L (35-105) Total Protein 6.8 g/dL g/dL (6.6-8.7) Albumin 4.0 g/dL g/dL (3.5-5.2) Globulin 2.8 g/dL g/dL (1.3-4.6) Lipase 34 U/L U/L (13-60) Urine Color Urine Appearance Urine pH Ur Specific Gravit y Urine Protein Urine Glucose (UA) Urine Ketones Urine Blood Urine Nitrate Urine Bilirubin Prot Sulfosalicyli c Acd Urine Urobilinogen Ur Leukocyte Lorraine ase H. pylori IgG Anti body Negative (Negative) Hepatitis A IgM Ab Non-reactive (Nonreactive) Hep Bs Antigen Non-reactive (Nonreactive) Hep Bs Antibody 4.7 L (11.5-1000) Hep B Core Total A b Non-reactive (Nonreactive) Hepatitis C Antibo dy Non-reactive (Nonreactive) SARS-CoV-2 Ag (Rap id) 08/24/21 08/24/21 08/24/21 18:24 19:48 19:48 WBC RBC Hgb Hct MCV MCH MCHC RDW Plt Count MPV Neut % (Auto) Lymph % (Auto) [place] % (Auto) Eos % (Auto) Baso % (Auto) Neut # (Auto) Lymph # (Auto) [place] # (Auto) Eos # (Auto) Baso # (Auto) Nucleated RBC % (a uto) Nucleated RBCs # Sodium Potassium Chloride Carbon Dioxide Anion Gap BUN Creatinine GFR Calculation Glucose Calculated Osmolal ity Lactic Acid Lactic Acid (Sepsi s) 3.3 mmol/L H mmol /L (0.5-2.2) Calcium Total Bilirubin AST ALT Alkaline Phosphata se Total Protein Albumin Globulin Lipase Urine Color Yellow (Yellow) Urine Appearance Clear (CLEAR) Urine pH 8 H (5-7) Ur Specific Gravit y 1.005 (1.005-1.030) Urine Protein Neg (Negative) Urine Glucose (UA) Norm (Normal) Urine Ketones Negative (Negative) Urine Blood Neg (Negative) Urine Nitrate Negative (Negative) Urine Bilirubin Neg (Negative) Prot Sulfosalicyli c Acd Negative (Negative) Urine Urobilinogen Norm mg/dL mg/dL (Negative) Ur Leukocyte Lorraine ase Negative (Negative) H. pylori IgG Anti body Hepatitis A IgM Ab Hep Bs Antigen Hep Bs Antibody Hep B Core Total A b Hepatitis C Antibo dy SARS-CoV-2 Ag (Rap id) Negative (Negative) Imaging Data^: CT Abd/Pel: Radiologist's impression: [address] [address] [address] Scan Report Signed Patient: Angelika Reilly Unit #: [id number] : 1955 Age/Sex: 65 / F ADM Date: 08/24/21 Loc: ER Room/Bed: Attending Dr: Ordering Provider/Ordering MD: Maikel Caro Date of Service: 08/24/21 Procedure(s): CT abdomen pelvis w con* [id number] Accession Number(s): [id number] Report Number: [id number] PROCEDURE INFORMATION: Exam: CT Abdomen And Pelvis With Contrast Exam date and time: 08/24/2021 3:24 PM Age: 65 years old Clinical indication: Abdominal pain; Prior surgery; Surgery date: 6+ months; Surgery type: Ex lap, hyst, gb; Patient HX: C/O epigastric pain w n/v/d; Additional info: Periumbilical and epigastric pain w/ nausea and vomiting TECHNIQUE: Imaging protocol: Computed tomography of the abdomen and pelvis with contrast. Radiation optimization: All CT scans at this facility use at least one of these dose optimization techniques: automated exposure control; mA and/or kV adjustment per patient size (includes targeted exams where dose is matched to clinical indication); or iterative reconstruction. Contrast material: OMNI 350; Contrast volume: 95 ml; Contrast route: INTRAVENOUS (IV); COMPARISON: CT abdomen pelvis w con* [id number] 01/31/2021 1:50 PM RADIATION DOSE METRICS: Total DLP (mGy-cm): 728.83 FINDINGS: Lungs: Mild atelectasis versus fibrosis noted at the lung bases. Liver: Mild hepatic steatosis noted. No hepatic mass. Gallbladder and bile ducts: The gallbladder is surgically absent. There is intrahepatic and extrahepatic biliary dilatation noted. The distal common duct measures up to 14 mm in diameter. There is a 12 mm minimally calcified calculus suspected in the distal common duct. Pancreas: The pancreas is normal in appearance. No pancreatic duct dilatation. Spleen: The spleen is normal in size and appearance. Adrenal glands: The adrenal glands appear within normal limits. Kidneys and ureters: Mild cortical scarring left kidney. Simple appearing right renal cysts measuring up to 5 cm. No calculus or hydronephrosis. Stomach and bowel: No acute gastric abnormality demonstrated. The small bowel is unremarkable as demonstrated. No acute abnormality/inflammatory change of the colon. Appendix: No evidence of appendicitis. Intraperitoneal space: No pneumoperitoneum. No significant fluid collection. Vasculature: Atherosclerosis of the aorta and iliac arteries. No abdominal aortic aneurysm. Lymph nodes: No pathologically enlarged lymph nodes are demonstrated. Urinary bladder: The urinary bladder is unremarkable in appearance. Reproductive: The uterus is not visualized, consistent with hysterectomy. Bones/joints: Degenerative changes of the lumbar spine and bilateral hips noted. Soft tissues: The soft tissues appear unremarkable. CT/CT abdomen pelvis w con* [id number] IMPRESSION: 1. The gallbladder is surgically absent. 2. Intrahepatic and extrahepatic biliary dilatation is present. This has worsened when compared to 01/31/2021. 3. Suspected choledocholithiasis. There is a 12 mm minimally calcified calculus identified in the distal common duct. Consider MRCP and/or gastroenterology consult for further assessment. 4. No acute bowel abnormality noted. COMMENTS: Consistent with the [place] [employer]'s Incidental Findings Committee white paper (J Am Gloria Radiol 2018): Any incidental renal lesion less than 1 cm or classified as too small to characterize, or any incidental cystic renal lesion characterized as simple-appearing, is likely benign. No follow-up imaging is recommended for these lesions per consensus recommendations based on imaging criteria. Radiation Dose CTDIVOL = (mGy): DLP = 728.83 (mGy-cm) Dictated By: Shankar Bowman MD Signed By: Shankar Bowman MD Signed Date/Time: 08/24/21 1751 DD/ 1524 Discharge Plan Discharge Patient Disposition: Xfer Short-Term Hosp Clinical Impression: Choledocholithiasis Condition: Stable Referrals: Anabel Bishop MD [Primary Care Provider] - Sign Out Sign Out Data: Patient Sign Out occurred on 08/24/21 at 17:22. Patient's care was discussed, and care was transferred from to TAMMY Kumar. Coding Level of Care Code ED Sludge Control Attendant for Chg Fwd Exam Comprehensive
[2021-08-24 15:35] LABS: Basophils % 0.3 %; Mean Platelet Volume 11.2 fL (7.4-10.4); Nucleated Red Blood Cells % 0 %; Red Cell Distribution Width 11.9 % (12.1-15.1)
[2021-08-24] MEDS: morphine 4 mg/mL SDV 1 mL IVP ×2 (15:37→21:30)
[2021-08-24] MEDS: metoclopramide 5 mg/mL SDV 2 mL 10 MG IVP (15:38)
[2021-08-24] MEDS: sodium chloride 0.9% 1,000 ML 999 ML IV ×2 (15:38→19:42)
[2021-08-24 15:52] LABS: Eosinophils % 0.1 %; Hematocrit 41.1 % (37.0-47.0); Hemoglobin 13.8 g/dL (11.5-15.3); Lymphocytes # 0.3 10^3/uL (0.8-4.8); Lymphocytes % 3.6 %; Mean Corpuscular HGB Conc 33.6 g/dL (30.0-36.0); Mean Corpuscular Hemoglobin 31.3 pg (28.0-34.0); Mean Corpuscular Volume 93.2 fl (81-99); Monocytes # 0.1 10^3/uL (0.2-0.9); Monocytes % 1.7 %; Neutrophils # 6.52 10^3/uL (1.8-7.7); Platelet Count 208 10^3/cmm (130-400); Red Blood Count 4.41 10^6/uL (4.1-5.3); White Blood Count 6.9 10^3/uL (4.0-10.0)
[2021-08-24 15:53] LABS: Lactic Sepsis W/Reflex 2.8 mmol/L (0.5-2.2)
[2021-08-24 16:14] LABS: Slide Review Slide Review Perform
[2021-08-24 16:20] LABS: Alanine Aminotransferase 595 U/L (0-33); Alkaline Phosphatase 323 IU/L (35-105); Anion Gap 17.6 (5-19); Blood Urea Nitrogen 9 mg/dL (8-23); Calcium 9.6 mg/dL (8.5-10.5); Carbon Dioxide 21 mmol/L (22-29); Chloride 101 mmol/L (98-107); Globulin 2.8 g/dL (1.3-4.6); Glomerular Filtration Rate 124.6 mL/min (90-130); Glucose 137 mg/dL (65-115); Lipase 34 U/L (13-60); Osmolality Calculated 283 mOsm/kg (285-295); Potassium 3.6 mmol/L (3.5-5.1); Sodium 136 mmol/L (136-145); Total Bilirubin 2.3 mg/dL (0.15-1.2); Total Protein 6.8 g/dL (6.6-8.7)
[2021-08-24 16:31] LABS: Aspartate Amino Transferase 1127 U/L (0-32)
[2021-08-24 16:33] LABS: Reflex Lactate Order REFLEX LACTIC ORDERD
[2021-08-24 16:48] LABS: H. Pylori IgG Antibody Negative (Negative)
[2021-08-24] MEDS: iohexol 350 mg/mL 100 mL Btl IV (16:51)
[2021-08-24] MEDS: LORazepam 2 mg/mL INJ 1 mL 1 MG IVP (17:02)
[2021-08-24 17:47] LABS: Hepatitis A Antibody IgM Non-Reactive (Nonreactive); Hepatitis B Core AB, Total Non-Reactive (Nonreactive); Hepatitis B Surface AB 4.7 (11.5-1000); Hepatitis B Surface Antigen Non-Reactive (Nonreactive); Hepatitis C Virus Antibody Non-Reactive (Nonreactive)
[2021-08-24 19:23] LABS: Lactic Acid level (Lactate) 3.3 mmol/L (0.5-2.2)
[2021-08-24] MEDS: piperacillin-tazobactam 3.375 GM in sodium chloride 0.9% (plus) 50 ML IV (19:41)
[2021-08-24 20:05] LABS: Add Urine Microscopic? NO; Charge for UA Resulting for Rev
[2021-08-24 20:26] LABS: SARS Covid-2 Antigen Negative (Negative)
[2021-08-24 20:30] LABS: Bilirubin Urine Neg (Negative); Blood Urine Neg (Negative); Glucose Urine UA Norm (Normal); Ketones Urine Negative (Negative); Leukocyte Esterase Urine Negative (Negative); Nitrate Urine Negative (Negative); Protein Urine Neg (Negative); Specific Gravity, Urine 1.005 (1.005-1.030); Sulfosalicylic Acid Urine Negative (Negative); Urine Appearance Clear (CLEAR); Urine Color Yellow (Yellow); Urobilinogen Urine Norm (Negative); pH Urine 8 (5-7)
[2021-08-24] MEDS: HYDROmorphone 1 mg/mL INJ 1 mL 0.5 MG IVP (23:19)
--- NOTE | 2021-08-25 12:02 | PC.NURSE ---
Notified SHAWNA Costello at [facility] regarding positive blood culture results. Results faxed to [facility] at this time.
== END 2021-08-24 23:17 | disposition short-term general hospital (02) ==
PROVIDERS: Physician Assistant; Emergency Provider Physician Assistant; PCP Family Medicine
DX: K80.50 Calculus of bile duct without cholangitis or cholecystitis without obstruction (principal)
CPT/HCPCS: 36415; 74177; 80053; 81003; 83605; 83690; 85025; 86677; 86705; 86706; 86709; 86803; 87040; 87077; 87186; 87205; 87340; 87426; 96361; 96365; 96375; 96376; 99285; J1170; J2060; J2270; J2543; J2765; J7030; Q9967

== ENCOUNTER → 2021-09-11 13:00 | Outpatient (BNVA) | payer MEDICARE, MEDICAID, SELFPAY | PROVIDERS: PCP Family Medicine; Visit Provider Anesthesiology | DX: G89.29 Other chronic pain (principal); M25.551 Pain in right hip; M54.16 Radiculopathy, lumbar region; M54.6 Pain in thoracic spine; F17.200 Nicotine dependence, unspecified, uncomplicated; Z79.891 Long term (current) use of opiate analgesic; Z79.899 Other long term (current) drug therapy; Z86.19 Personal history of other infectious and parasitic diseases | CPT/HCPCS: 99214 ==

== ENCOUNTER → 2021-11-13 13:13 | Outpatient (BNVA) | payer MEDICARE, MEDICAID, SELFPAY | PROVIDERS: PCP Family Medicine; Visit Provider Anesthesiology | DX: G89.29 Other chronic pain (principal); M54.16 Radiculopathy, lumbar region; M54.6 Pain in thoracic spine; M25.551 Pain in right hip; F17.210 Nicotine dependence, cigarettes, uncomplicated; Z79.891 Long term (current) use of opiate analgesic | CPT/HCPCS: 99214 ==

== ENCOUNTER 2022-01-17 15:00 | Emergency (ER) | payer MEDICARE, MEDICAID, SELFPAY ==
[2022-01-17 15:12] VITALS: BP 118/84; PULSE 88; RESP 18; TEMP 36.6; O2SAT 98; BMI 18.9
--- NOTE | 2022-01-17 15:38 | ED_ITS ---
HPI - Nausea/Vomiting/Diarrhea General: Chief complaint: Nausea/Vomiting/Diarrhea Stated complaint: Diarrhea, dizziness, weakness, headache Time Seen by Provider: 01/17/22 15:22 History of Present Illness: Patient comes in with weakness, dizziness, and diarrhea for the past week. States that she has not had any nausea or vomiting. States that she did take some Imodium yesterday with improvement in her symptoms. States comes in today because she feels dehydrated. Associated nausea: No Associated symtoms: Denies anxiety, change in vision, chest pain, dysuria, headache(s), nausea or palpitations Review of Systems Const: Denies: fever(s) or body aches Eyes: Denies: change in vision or blurry vision ENMT: Denies: throat pain or odynophagia Card: Denies: chest pain or palpitations Resp: Denies: dyspnea or productive cough GI: Reports: diarrhea; Denies: abdominal pain, nausea or vomiting : Denies: flank pain or dysuria Musc: Denies: neck pain or back pain Skin/Breast: Denies: rash or pruritus Neuro: Denies: headache(s) or numbness in extremities Psych: Denies: anxiety or change in appetite Endo: Denies: polyuria or excessive sweating PFSH ED PFSH: Medical History 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 Chronic right hip pain Encounter for long-term opiate analgesic use Long-term use of high-risk medication continue to monitor use of medication Risk for falls Smoker Counselled regarding smoking cessation Surgical History S/P laparotomy EXPLORATORY AGE 30YRS S/P partial hysterectomy 30 YEARS OLD S/P tubal ligation 1981 Family History Grandmother Diabetes CAD (coronary artery disease) Father Cancer LEUKEMIA Family/Other Cancer COUSIN - LYMPHOMA CAD (coronary artery disease) UNCLE AND AUNT Diabetes Mother Suicide Denies family history of Clotting disorder Dementia Chronic kidney disease (CKD) Anesthesia complication Bleeding disorder Lung disease Stroke Social History (Updated 11/13/21 @ 13:35 by Jayda Crawley LPN) Smoking and tobacco status: current every day smoker cigarettes Packs smoked per day: 0.5 Alcohol intake: never History of recent travel: No Physical Exam Const: COMMON NORMALS: no acute distress, patient oriented x3, healthy appearing and alert HENMT: COMMON NORMALS: normocephalic and atraumatic HEAD & SCALP: normocephalic and atraumatic OTHER: Dry mucous membranes Eye: COMMON NORMALS: Equal, round and reactive pupils present and EOMs intact bilaterally PUPIL: Yes Equal, round and reactive pupils present Neck/C-Spine: COMMON NORMALS: full ROM and supple Resp: COMMON NORMALS: normal respiratory effort, No retractions and No use of accessory muscles Cardio: COMMON NORMALS: regular rate and regular rhythm RATE: regular rate RHYTHM: regular rhythm GI: COMMON NORMALS: Normal to inspection, nondistended, normoactive bowel sounds present, Soft to palpation and non-tender PALPATION: Yes Soft to palpation Back/Pelvis: COMMON NORMALS: thoracic and lumbar spine normal to inspection and no thoracic nor lumbar tenderness Extremity: COMMON NORMALS: normal to inspection and full ROM Neuro: COMMON NORMALS: patient oriented x3 SENSORIUM/ORIENTATION: Yes alert Psych: COMMON NORMALS: mental status grossly normal and cooperative Skin: COMMON NORMALS: no rashes or lesions noted and no wounds GENERAL SKIN EXAM: no rashes or lesions noted OTHER: Poor skin turgor Course Vital Signs: Vital signs: Vital Signs Temperature 97.9 F 01/17/22 15:12 Pulse Rate 88 01/17/22 15:12 Respiratory Rate 18 01/17/22 15:12 Blood Pressure 118/84 01/17/22 15:12 Pulse Oximetry 98 01/17/22 15:12 MDM - Nausea/Vomiting/Diarrhea Medical Decision Making Patient comes in with weakness, dizziness, and diarrhea for the past week. States that she has not had any nausea or vomiting. States that she did take some Imodium yesterday with improvement in her symptoms. States comes in today because she feels dehydrated. On physical exam she has poor skin turgor and dry mucous membranes. Abdomen is soft nontender. Will check labs, give IV fluids, and reassess. On reassessment I talked to the patient about the test results. Will discharge home at this time with precautions to return for worsening or changing symptoms. Lab Data : 01/17/22 16:00 01/17/22 16:00 Laboratory Results WBC 8.1 10^3/uL (4.0-10.0) 01/17/22 16:00 RBC 4.95 10^6/uL (4.1-5.3) 01/17/22 16:00 Hgb 15.1 g/dL (11.5-15.3) 01/17/22 16:00 Hct 43.9 % (37.0-47.0) 01/17/22 16:00 MCV 88.7 fl (81-99) 01/17/22 16:00 MCH 30.5 pg (28.0-34.0) 01/17/22 16:00 MCHC 34.4 g/dL (30.0-36.0) 01/17/22 16:00 RDW 12.1 % (12.1-15.1) 01/17/22 16:00 Plt Count 308 10^3/cmm (130-400) 01/17/22 16:00 MPV 11.2 fL (7.4-10.4) H 01/17/22 16:00 Neut % (Auto) 54.2 % 01/17/22 16:00 Lymph % (Auto) 33.7 % 01/17/22 16:00 [place] % (Auto) 8.4 % 01/17/22 16:00 Eos % (Auto) 3.0 % 01/17/22 16:00 Baso % (Auto) 0.5 % 01/17/22 16:00 Neut # (Auto) 4.40 10^3/uL (1.8-7.7) 01/17/22 16:00 Lymph # (Auto) 2.7 10^3/uL (0.8-4.8) 01/17/22 16:00 [place] # (Auto) 0.7 10^3/uL (0.2-0.9) 01/17/22 16:00 Eos # (Auto) 0.2 10^3/uL (0.0-0.8) 01/17/22 16:00 Baso # (Auto) 0.0 10^3/uL (0.0-0.1) 01/17/22 16:00 Nucleated RBC % (auto) 0 % 01/17/22 16:00 Nucleated RBCs # 0.0 /100WBC 01/17/22 16:00 Sodium 141 mmol/L (136-145) 01/17/22 16:00 Potassium 4.2 mmol/L (3.5-5.1) 01/17/22 16:00 Chloride 110 mmol/L (98-107) H 01/17/22 16:00 Carbon Dioxide 17 mmol/L (22-29) L 01/17/22 16:00 Anion Gap 18.2 (5-19) 01/17/22 16:00 BUN 18 mg/dL (8-23) 01/17/22 16:00 Creatinine 0.7 mg/dL (0.5-0.9) 01/17/22 16:00 GFR Calculation 84.2 mL/min (90-130) L 01/17/22 16:00 Glucose 117 mg/dL (65-115) H 01/17/22 16:00 Calculated Osmolality 295 mOsm/kg (285-295) 01/17/22 16:00 Calcium 9.6 mg/dL (8.5-10.5) 01/17/22 16:00 Total Bilirubin 0.4 mg/dL (0.15-1.2) 01/17/22 16:00 AST 18 U/L (0-32) 01/17/22 16:00 ALT 15 U/L (0-33) 01/17/22 16:00 Alkaline Phosphatase 113 IU/L (35-105) H 01/17/22 16:00 Total Protein 6.8 g/dL (6.6-8.7) 01/17/22 16:00 Albumin 4.7 g/dL (3.5-5.2) 01/17/22 16:00 Globulin 2.1 g/dL (1.3-4.6) 01/17/22 16:00 Discharge Plan Discharge Patient Disposition: Home Clinical Impression: Diarrhea, Dehydration Condition: Stable Prescriptions: No Action fluoxetine [Prozac] 20 mg capsule 20 mg PO DAILY 0RF topiramate [Topamax] 50 mg tablet 50 mg PO BID 0RF oxycodone 15 mg tablet 15 mg PO .6 times daily PRN (Reason: pain) 30 Days Qty: 180 0RF Rx Instructions: Fill on or after 12/20/21 pantoprazole [Protonix] 40 mg tablet,delayed release (DR/EC) 40 mg PO BID 0RF cyanocobalamin (vitamin B-12) [Vitamin B-12] 500 mcg tablet 500 mcg PO DAILY 0RF pyridoxine (vitamin B6) [Vitamin B-6] 100 mg tablet 50 mg PO DAILY 0RF nitroglycerin [Nitrostat] 0.4 mg tablet, sublingual 0.4 mg SUBLINGUAL Q5M PRN (Reason: chest pain) Qty: 1 0RF metoprolol tartrate 50 mg tablet 50 mg PO BID 90 Days Qty: 180 3RF lisinopril 10 mg tablet 10 mg PO DAILY Qty: 30 5RF Repatha SureClick 140 mg/mL pen injector See Rx Instructions .ROUTE .COMPLEX Qty: 6 11RF Dose Instruction: ADMINISTER 1 ML UNDER THE SKIN EVERY 2 WEEKS Rx Instructions: ADMINISTER 1 ML UNDER THE SKIN EVERY 2 WEEKS clopidogrel [Plavix] 75 mg tablet 75 mg PO DAILY Qty: 90 0RF Rx Instructions: Must be seen for further refills Ventolin HFA 90 mcg/actuation Hfa Aerosol Inhaler 2 puff INHALATION Q6H PRN (Reason: Shortness Of Breath) 0RF Symbicort 80-4.5 mcg/actuation Hfa Aerosol Inhaler 1 inh INHALATION BID PRN (Reason: Shortness Of Breath) 0RF Klor-Con M20 20 mEq tablet,ER particles/crystals 20 meq PO DAILY 0RF Hair,Nails and Skin Vitamin Tablet 1 tab PO DAILY 0RF melatonin 5 mg Capsule 5 mg PO BEDTIME 0RF Discharge Orders: Discharge ED (Routine); Ordered 01/17/22 Ordered By: Tam Saxena Referrals: Anabel Bishop MD [Primary Care Provider] - Coding Level of Care Code ED Fuel Efficient Aircraft Designer for Chg Fwd Exam Comprehensive
[2022-01-17] MEDS: sodium chloride 0.9% 1,000 ML 999 ML IV ×2 (16:06)
[2022-01-17 16:27] LABS: Basophils % 0.5 %; Eosinophils # 0.2 10^3/uL (0.0-0.8); Hematocrit 43.9 % (37.0-47.0); Hemoglobin 15.1 g/dL (11.5-15.3); Lymphocytes # 2.7 10^3/uL (0.8-4.8); Lymphocytes % 33.7 %; Mean Corpuscular HGB Conc 34.4 g/dL (30.0-36.0); Mean Corpuscular Hemoglobin 30.5 pg (28.0-34.0); Mean Corpuscular Volume 88.7 fl (81-99); Mean Platelet Volume 11.2 fL (7.4-10.4); Monocytes # 0.7 10^3/uL (0.2-0.9); Monocytes % 8.4 %; Neutrophils % 54.2 %; Nucleated Red Blood Cells % 0 %; Platelet Count 308 10^3/cmm (130-400); Red Blood Count 4.95 10^6/uL (4.1-5.3); Red Cell Distribution Width 12.1 % (12.1-15.1); White Blood Count 8.1 10^3/uL (4.0-10.0)
[2022-01-17 16:48] LABS: Alanine Aminotransferase 15 U/L (0-33); Albumin Level 4.7 g/dL (3.5-5.2); Alkaline Phosphatase 113 IU/L (35-105); Anion Gap 18.2 (5-19); Aspartate Amino Transferase 18 U/L (0-32); Blood Urea Nitrogen 18 mg/dL (8-23); Calcium 9.6 mg/dL (8.5-10.5); Carbon Dioxide 17 mmol/L (22-29); Chloride 110 mmol/L (98-107); Globulin 2.1 g/dL (1.3-4.6); Glomerular Filtration Rate 84.2 mL/min (90-130); Glucose 117 mg/dL (65-115); Osmolality Calculated 295 mOsm/kg (285-295); Potassium 4.2 mmol/L (3.5-5.1); Sodium 141 mmol/L (136-145); Total Bilirubin 0.4 mg/dL (0.15-1.2); Total Protein 6.8 g/dL (6.6-8.7)
[2022-01-17 17:30] VITALS: BP 121/73; PULSE 95; RESP 18; O2SAT 97
== END 2022-01-17 18:11 | disposition home or self-care (01) ==
PROVIDERS: Emergency Provider Emergency Medicine; PCP Family Medicine
DX: E86.0 Dehydration (principal); R19.7 Diarrhea, unspecified; F17.210 Nicotine dependence, cigarettes, uncomplicated; Z79.891 Long term (current) use of opiate analgesic; Z79.02 Long term (current) use of antithrombotics/antiplatelets
CPT/HCPCS: 80053; 85025; 99283; J7030

== ENCOUNTER → 2022-07-31 14:59 | Outpatient (BNVA) | payer MEDICARE, MEDICAID, SELFPAY | PROVIDERS: PCP Family Medicine; Visit Provider Internal Medicine Cardiovascular Disease | DX: I25.118 Atherosclerotic heart disease of native coronary artery with other forms of angina pectoris (principal); I95.9 Hypotension, unspecified; R63.4 Abnormal weight loss; I49.9 Cardiac arrhythmia, unspecified; E78.5 Hyperlipidemia, unspecified; F17.210 Nicotine dependence, cigarettes, uncomplicated | CPT/HCPCS: 99214 ==

== ENCOUNTER 2023-02-05 17:35 | Emergency (ER) | payer MEDICARE, MEDICAID, SELFPAY ==
[2023-02-05 17:54] VITALS: BP 94/68; PULSE 79; RESP 18; TEMP 36.8; O2SAT 95
--- NOTE | 2023-02-05 19:19 | ED_ITS ---
HPI - Female Genitourinary General: Chief complaint: Urogenital-Female Stated complaint: urinary pain Time Seen by Provider: 02/05/23 18:13 History of Present Illness: Patient is in today with complaints of urinary tract infection. She reports that for approximately 2 weeks she has had dysuria and urinary frequency. She states that she started drinking cranberry juice and water and stopped drinking coffee and Gatorade to see if she could help with this. She reports that she is just not feeling any better she has significant pain in her bladder. She denies fever or chills but states she has been a little bit nauseated. She reports that her blood pressure is a bit lower than normal however she has chronic constant diarrhea and thinks that she has not been drinking quite enough recently. Associated symptoms: Reports abdominal pain and nausea Review of Systems Const: Denies: fever(s), chills or body aches Card: Denies: chest pain, palpitations or irregular heart rhythm Resp: Denies: dyspnea, productive cough or non-productive cough GI: Reports: abdominal pain and nausea; Denies: vomiting : Reports: dysuria, urinary frequency and urinary urgency PFSH ED PFSH: Medical History 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 Chronic right hip pain Encounter for long-term opiate analgesic use Long-term use of high-risk medication continue to monitor use of medication Risk for falls Smoker Counselled regarding smoking cessation Surgical History S/P laparotomy EXPLORATORY AGE 30YRS S/P partial hysterectomy 30 YEARS OLD S/P tubal ligation 1981 Family History Grandmother Diabetes CAD (coronary artery disease) Father Cancer LEUKEMIA Family/Other Cancer COUSIN - LYMPHOMA CAD (coronary artery disease) UNCLE AND AUNT Diabetes Mother Suicide Denies family history of Clotting disorder Dementia Chronic kidney disease (CKD) Anesthesia complication Bleeding disorder Lung disease Stroke Social History Smoking and tobacco status: current every day smoker cigarettes Packs smoked per day: 0.5 Alcohol intake: never Substance/Drug Use: never Physical Exam Const: COMMON NORMALS: no acute distress, patient oriented x3 and alert OTHER: Patient is a frail-appearing female in no acute distress Neck/C-Spine: COMMON NORMALS: no JVD Resp: COMMON NORMALS: normal respiratory effort, No use of accessory muscles and clear to auscultation bilaterally AUSCULTATION: clear to auscultation bilaterally Cardio: COMMON NORMALS: no JVD, regular rate, regular rhythm, S1 normal heart sound present and S2 normal heart sound present RATE: regular rate RHYTHM: regular rhythm HEART SOUNDS: S1 normal heart sound present and S2 normal heart sound present GI: COMMON NORMALS: Normal to inspection, nondistended, normoactive bowel s ounds present and Soft to palpation PALPATION: Yes Soft to palpation and Yes Tenderness to palpation present (GI) Details: other (Suprapubic) : COMMON NORMALS: Yes no CVA tenderness BLADDER/KIDNEY EXAM: Yes no CVA tenderness Back/Pelvis: COMMON NORMALS: no CVA tenderness Neuro: COMMON NORMALS: patient oriented x3 SENSORIUM/ORIENTATION: Yes alert Course Vital Signs: Vital signs: Vital Signs Temperature 98.3 F 02/05/23 17:54 Pulse Rate 79 02/05/23 17:54 Respiratory Rate 18 02/05/23 17:54 Blood Pressure 94/68 02/05/23 17:54 Pulse Oximetry 95 02/05/23 17:54 Oxygen Delivery Me thod Room Air 02/05/23 17:54 MDM - Female Medical Decision Making Differentials include urinary tract infection, cystitis, dysuria, pyelonephritis We will treat patient to cover urinary tract infection. Send urine for culture. Make sure that you are staying well-hydrated. Follow-up with primary care provider next week for reevaluation. Return to ER as needed for new or worsening symptoms including, but not limited to worsening pain, vomiting, development of fever. Lab Data Laboratory Results Urine Color Yellow (Yellow) 02/05/23 18:11 Urine Appearance Cloudy (CLEAR) A 02/05/23 18:11 Urine pH 5 (5-7) 02/05/23 18:11 Ur Specific [place] 1.020 (1.005-1.030) 02/05/23 18:11 Urine Protein 2+ (Negative) H 02/05/23 18:11 Urine Glucose (UA) Norm (Normal) 02/05/23 18:11 Urine Ketones 1+ (Negative) H 02/05/23 18:11 Urine Blood 3+ (Negative) H 02/05/23 18:11 Urine Nitrate Positive (Negative) H 02/05/23 18:11 Urine Bilirubin Neg (Negative) 02/05/23 18:11 Urine Urobilinogen Norm mg/dL (Negative) 02/05/23 18:11 Ur Leukocyte Esterase 2+ (Negative) H 02/05/23 18:11 Urine RBC 15-25 /hpf (0-2) H 02/05/23 18:11 Urine WBC Too numerous to cnt /hpf (0-5) H 02/05/23 18:11 Ur Squamous Epith Cells None /hpf (0-5) 02/05/23 18:11 Amorphous Sediment Not Reportable 02/05/23 18:11 Urine Bacteria 2+ /hpf (NONE) H 02/05/23 18:11 Discharge Plan Discharge Patient Disposition: Home Clinical Impression: Urinary tract infection Condition: Stable Prescriptions: New Bactrim DS 800-160 mg tablet 1 tab PO BID 3 Days Qty: 6 0RF Pyridium 100 mg tablet 100 mg PO Q8H PRN (Reason: pain) Qty: 6 0RF No Action fluoxetine [Prozac] 20 mg capsule 20 mg PO DAILY topiramate [Topamax] 50 mg tablet 50 mg PO BID oxycodone 15 mg tablet 15 mg PO .6 times daily PRN (Reason: pain) 30 Days Qty: 180 0RF Rx Instructions: Fill on or after 12/20/21 pantoprazole [Protonix] 40 mg tablet,delayed release (DR/EC) 40 mg PO BID cyanocobalamin (vitamin B-12) [Vitamin B-12] 500 mcg tablet 500 mcg PO DAILY nitroglycerin [Nitrostat] 0.4 mg tablet, sublingual 0.4 mg SUBLINGUAL Q5M PRN (Reason: chest pain) Qty: 1 0RF clopidogrel [Plavix] 75 mg tablet 75 mg PO DAILY Qty: 90 3RF lisinopril 10 mg tablet 10 mg PO DAILY Qty: 90 3RF metoprolol tartrate 50 mg tablet 50 mg PO BID 90 Days Qty: 180 3RF Repatha SureClick 140 mg/mL pen injector 140 mg SUBCUT Q14D Qty: 6 3RF Klor-Con M20 20 mEq tablet,ER particles/crystals 20 meq PO DAILY Qty: 90 3RF Ventolin HFA 90 mcg/actuation Hfa Aerosol Inhaler 2 puff INHALATION Q6H PRN (Reason: Shortness Of Breath) Symbicort 80-4.5 mcg/actuation Hfa Aerosol Inhaler 1 inh INHALATION BID PRN (Reason: Shortness Of Breath) Hair,Nails and Skin Vitamin Tablet 1 tab PO DAILY Discharge Orders: Discharge ED (Routine); Ordered 02/05/23 Ordered By: Sage Referrals: Anabel Bishop MD [Primary Care Provider] - Discharge Diet: Usual diet Discharge Activity: Resume usual activity Patient Instructions: Urinary Tract Infection in Older Adults (ED) Activity Restrictions/Additional Instructions: Take antibiotics as directed starting tomorrow. You may use the Pyridium every 8 hours that I gave you the first dose here in the ER. Do not take Azo with the Pyridium. Make sure that you increase your water intake. Make sure that the cranberry juice you are drinking is sugar-free. Follow-up with your primary care provider next week for reevaluation. Return to the ER for any new or worsening symptom Coding Level of Care Code ED Seam Finisher for Yanet Peguero
[2023-02-05 19:25] LABS: Bilirubin Urine Neg (Negative); Blood Urine 3+ (Negative); Glucose Urine UA Norm (Normal); Ketones Urine 1+ (Negative); Leukocyte Esterase Urine 2+ (Negative); Nitrate Urine Positive (Negative); Protein Urine 2+ (Negative); Urine Appearance Cloudy (CLEAR); Urine Color Yellow (Yellow); Urobilinogen Urine Norm (Negative); pH Urine 5 (5-7)
[2023-02-05 19:26] LABS: Add Urine Microscopic? YES; Bacteria Urine 2+ /hpf; RBC Urine 15-25 /hpf (0-2); WBC Urine TOO NUMEROUS TO CNT /hpf (0-5)
[2023-02-05 19:27] LABS: Add Urine Culture? Yes
[2023-02-05] MEDS: phenazopyridine 100 mg Tablet PO (19:56)
[2023-02-05] MEDS: sulfamethoxazole-trimeth DS 160-800 mg Tablet 1 TAB PO (19:56)
== END 2023-02-05 19:59 | disposition home or self-care (01) ==
PROVIDERS: Emergency Provider Nurse Practitioner Family; PCP Family Medicine
DX: N39.0 Urinary tract infection, site not specified (principal); F17.210 Nicotine dependence, cigarettes, uncomplicated
CPT/HCPCS: 81001; 87077; 87086; 87186; 99284

== ENCOUNTER → 2023-02-12 14:00 | Outpatient (BNVA) | payer MEDICARE, MEDICAID, SELFPAY | PROVIDERS: PCP Family Medicine; Visit Provider Internal Medicine Cardiovascular Disease | DX: I25.118 Atherosclerotic heart disease of native coronary artery with other forms of angina pectoris (principal); I95.9 Hypotension, unspecified; R63.4 Abnormal weight loss; I49.9 Cardiac arrhythmia, unspecified; E78.5 Hyperlipidemia, unspecified; R07.9 Chest pain, unspecified; Z87.891 Personal history of nicotine dependence; Z68.1 Body mass index [BMI] 19.9 or less, adult | CPT/HCPCS: 99215 ==

== ENCOUNTER 2023-02-26 13:07 | Outpatient (CLI) | payer MEDICARE, MEDICAID, SELFPAY ==
[2023-02-26 13:57] LABS: Basophils % 0.6 %; Eosinophils # 0.4 10^3/uL (0.0-0.8); Eosinophils % 8.3 %; Hematocrit 36.6 % (37.0-47.0); Hemoglobin 11.2 g/dL (11.5-15.3); Lymphocytes # 1.6 10^3/uL (0.8-4.8); Lymphocytes % 32.4 %; Mean Corpuscular HGB Conc 30.6 g/dL (30.0-36.0); Mean Corpuscular Hemoglobin 31.1 pg (28.0-34.0); Mean Corpuscular Volume 101.7 fl (81-99); Mean Platelet Volume 10.8 fL (7.4-10.4); Monocytes # 0.4 10^3/uL (0.2-0.9); Monocytes % 7.5 %; Neutrophils # 2.58 10^3/uL (1.8-7.7); Nucleated Red Blood Cells % 0 %; Platelet Count 256 10^3/cmm (130-400); Red Cell Distribution Width 12.9 % (12.1-15.1); White Blood Count 5.1 10^3/uL (4.0-10.0)
--- NOTE | 2023-02-26 13:59 | XR_ITS ---
WS: [id number] Lumbar spine with flexion and extension lateral, 02/26/2023 Clinical Data: VERTEBROGENIC LOW BACK PAIN Comparison: None. Findings: No compression fractures or subluxation is seen. There is degenerative disc narrowing at all levels f rom L2-L3 to L5-S1. There are anterior osteophytes at L2-L5.. No limitation of motion or subluxation is seen. There are surgical clips in the anterior abdomen. There is calcification of the wall of the abdominal aorta but no aneurysm. XR/XR lumbar spine f/e only [id number] Impression: 1. Degenerative disc narrowing from L2-L3 to L5-S1. 2. Osteophytes L2-L5. 3. No limitation of motion or subluxation on flexion or extension.
[2023-02-26 14:15] LABS: INR 0.95 (0.83-1.21)
[2023-02-26 14:34] LABS: Anion Gap 12.3 (5-19); Blood Urea Nitrogen 8 mg/dL (8-23); Calcium 8.7 mg/dL (8.5-10.5); Carbon Dioxide 22 mmol/L (22-29); Chloride 109 mmol/L (98-107); Glucose 82 mg/dL (65-115); Osmolality Calculated 285 mOsm/kg (285-295); Potassium 4.3 mmol/L (3.5-5.1); Sodium 139 mmol/L (136-145)
== END 2023-02-26 13:08 | disposition home or self-care (01) ==
LOC: LAB 13:14
PROVIDERS: PCP Family Medicine; Referring Provider Nurse Practitioner; Visit Provider Internal Medicine Cardiovascular Disease
DX: R07.9 Chest pain, unspecified (principal); M54.51 Vertebrogenic low back pain; M25.78 Osteophyte, vertebrae
CPT/HCPCS: 36415; 72120; 80048; 85025; 85610; 86850; 86900

== ENCOUNTER 2023-02-27 12:48 | Outpatient (CLI) | payer MEDICARE, MEDICAID, SELFPAY ==
--- NOTE | 2023-02-27 12:59 | MR_ITS ---
WS: [id number] MRI LUMBAR SPINE NONCONTRAST HISTORY: VERTEBROGENIC LOW BACK PAIN COMPARISON: None available. TECHNIQUE: Sagittal and axial multisequence imaging is submitted. Mild increase in thoracic kyphosis. Mild anterior wedging of T4. Mild LEFT curvature lumbar spine. L3 retrolisthesis by 2.2 mm. Small Schmorl's nodes along the endpla fausto of L3 and L4. No fractures. Mild disc desiccation throughout. Most significant at L3-4. Conus terminates normally at L1-2 disc level. L1-L2: Mild annular disc bulge and osteophytic ridging. Bilateral mild facet arthritis. Mild narrowin g of the LEFT subarticular recess. No significant stenosis. L2-L3: Mild annular disc bulging and osteophytic ridging. Mild ligamentum flavum and facet arthritis. There is an additional disc protrusion in the LEFT foramen contacting the LEFT exiting L2 nerve root . Mild central and bilateral subarticular recess stenosis. L3-L4: Diffuse annular disc bulging with osteophytic ridging. Moderate facet joint arthritis and liga mentum flavum hypertrophy. Severe central, bilateral subarticular recess and moderate foraminal steno sis. Significant encroachment and deformity of the traversing L4 nerve roots. L4-L5: Mild annular disc bulge with ligamentum flavum and facet arthritis. Facet osteophytes encroach into the LEFT subarticular recess and foramina. Moderate to severe central and bilateral subarticula r recess and LEFT foraminal stenosis. Mild RIGHT foraminal stenosis. Most significant encroachment up on the LEFT traversing L5 nerve root. L5-S1: Mild annular disc bulging with moderate facet arthritis. Mild foraminal stenosis. RIGHT renal cysts. The largest measures 5.4 cm from the superior pole. MR/MR lumbar spine wo con* [id number] IMPRESSION: 1. Severe central, bilateral subarticular recess and moderate foraminal stenos is at L3-4. The most significant encroachment upon the traversing L4 nerve root s. 2. Moderate to severe central, bilateral subarticular recess and LEFT foramina l stenosis. Most significant encroachment upon the LEFT traversing L5 nerve dirk t. 3. Mild foraminal stenosis at L5-S1. 4. Mild central and bilateral subarticular recess stenosis at L2-3. LEFT bobbi inal disc protrusion contacts the exiting LEFT L2 nerve root.
== END 2023-02-27 12:49 | disposition home or self-care (01) ==
LOC: RAD 12:53
PROVIDERS: PCP Family Medicine; Visit Provider Nurse Practitioner
DX: M48.07 Spinal stenosis, lumbosacral region (principal); M51.26 Other intervertebral disc displacement, lumbar region
CPT/HCPCS: 72148

== ENCOUNTER 2023-03-18 06:03 | Outpatient (CLI) | payer MEDICARE, MEDICAID, SELFPAY ==
[2023-03-18] VITALS (49 sets, daily range): BP systolic 97–150; BP diastolic 60–95; PULSE 52–88; RESP 13–24; TEMP 36.6–36.7; O2SAT 75–99; BMI 15.9
--- NOTE | 2023-03-18 06:00 | XACV_ITS ---
Exam Room: 2 Ht: 160 cm Wt: 41 kg BSA: 1.33 m2 Gender: Female : 1955 Any Known Allergies: Other Exam Priority: Routine Procedure(s): Procedure Description: Diagnostic procedure Procedure Description: Left Heart Catheterization Procedure Description: Coronary Angiography Procedure Description: Pressure Wire Diagnostic Cath Status: Elective Diagnostic Findings * INDICATIONS: 67-year-old woman with past medical history of CAD, hyperlipidemia, hypertension who has been having on and off chest pain symptoms that she feels worse in the recent past. Her primary stereotyper recommended a stress test however patient did not want to undergo a stress test given her prior experience. Plan for coronary angiogram with possible percutaneous coronary intervention. Risks and benefits of the procedure have been discussed with the patient. * Left Main has no significant disease. * Ostial Right Coronary Artery: mild to moderate 30-40% stenosis, GLORIA: 3 flow. Dampening of the pressure was noted. Decision made to proceed with iFR. * Left Anterior Descending has no disease. * Circumflex has no disease. * Coronary angiography shows right dominance. Interventional Findings * PROCEDURE DETAIL: JR 4 guide catheter was introduced into ascending aorta. iFR wire was advanced into ascending aorta and was normalized. We then engaged the RCA. IV heparin was administered to maintain anticoagulation. iFR wire was advanced into distal RCA. iFR value of 1.0 was obtained. Pullback was also performed that had no change IFR value of 1. iFR wire and guide catheter were removed. 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 Conclusions 1. Mild ostial RCA stenosis, confirmed to be non-ischemic with iFR. Recommendations * Aggressive risk factor modification. * Outpatient cardiology follow up in 4 weeks. Interventional RX Recommendation: medical therapy and/or counseling Diagnostic RX Recommendation: medical therapy and/or counseling Anticoagulation: Heparin Pressures Phase:Rest AO : 99 / 74 ( 85 ) @ 8:57:00 AM 142 / 76 ( 103 ) @ 9:01:00 AM 144 / 77 ( 104 ) @ 9:01:00 AM 139 / 73 ( 101 ) @ 9:03:00 AM LV : 143 / -8 / 16 @ 9:01:00 AM 145 / -7 / 17 @ 9:01:00 AM Valves Phase:DefaultPhase AV : 2.0 @ 8:21:33 AM 2.0 @ 8:21:33 AM AV Mean Gradient: 8.0 @ 8:21:33 AM 8.0 @ 8:21:33 AM Clinical Evaluation EBL: 5mL-10mL Procedural Details Procedure Consent Obtained. Admit Source: Out Patient. Pre-Procedure Time Out. Identified patient by full name and date of as verbalized by the patient/guarantor. Does the consent match the physician's order: Yes. Accurate & Complete Informed Consent: Yes. Inpatient/Outpatient History & Physical on Chart: Yes. If H&P is completed, is and addenduem needed: No; If yes, is the addendum complete: N/A. Visualize and Verify Site with Patient/Guarantor: N/A. Relevant Radiology Images available: N/A. The risks, benefits, and alternatives of sedation and/or procedure were discussed by physician. The patient agrees to continue. Procedure started. Correct patient, site and procedure confirmed by cath team. PERRLA. Strong, equal hand interior design faculty member bilaterally. Lungs clear x 5 lobes. [facility] Clinical Fraility Score: 4: Vulnerable. Satellite Dish Installer Indications: New Onset Angina. Chest Pain Symptom Assessment: Typical Angina Symptoms. IV Site on Arrival: 18 gauge in the left forearm. IV Site on Arrival: 20 gauge in the left anticubital. IV Fluids: 0.9% NaCl at KVO. 0 mL infused prior to research laboratory manager. Pre Procedural Pulses: bilateral dorsalis pedis was 1+. Pre Procedural Pulses: bilateral posterior tibial was 1+. Pre Procedural Pulses: bilateral radial was 2+. Oxygen started at 2liters/min via nasal canula. bilateral groins was prepped with chloroprep then draped in the usual sterile fashion. Physician notified. Baseline sample Acquired. HR: 55 BPM. Physician arrived. Physician scrubbed in. Immediate Pre-Procedure Time Out. Correct Patient: Yes; Correct Procedure: Yes; Correct Site: Yes; Correct Patient Position: Yes; Correct Supplies: Yes; Dried Flammable Prep: Yes; Blood Products Available: Yes;. Lidocaine 1% infiltrated to the right groin. Ultrasound used by physican for access. Arterial access obtained with micropuncture set. A 5 austrian JL4 catheter in over wire. Multiple views taken of left coronary artery. Catheter out. A 5 austrian JR4 catheter in over wire. Multiple views taken of right coronary artery. EDP Sample taken: LV 143/-8,16; HR: 62 BPM; SpO2: 100%. Pullback taken: LV 145/-8,17; AO 142/76(103); Mean: 8mmHg, Peak to Peak: 2mmHg, SEP: 19sec/min; HR: 61 BPM; SpO2: 100%. Catheter out. 6 austrian JR 4 guide catheter was inserted over the wire. FFR guidewire was advanced through the guide catheter to lesion in the ostial RCA. Wire out. IFR spot 1.01, IFR pullback 1.01. Guide catheter out. ACT drawn. Results 286 seconds. Therapeutic limits - pre-heparin administration 90-150 seconds and monitoring heparin during a vascular procedure >250 seconds. A Right femoral angiogram was performed to determine safe placement of closure device. A Suture was successful obtaining hemostatsis at the Right Femoral artery insertion site. Post Procedure: Pulses reassessed and unchanged. PERRLA. Strong, equal hand interior design faculty member bilaterally. No VTE prophylaxis required. Medication's Wasted: Lidocaine 1% = 3 mL. Total IV fluids: 42 mL. Post-op diagnosis: non obstructive CAD. Complications: none. Estimated blood loss: 5mL-10mL. Responsiveness - Normal response to verbal stimuli; alert and oriented, PERRLA. Airway - Unaffected, no intervention required; spontaneous ventilation. Circulation: W/N/L, pulses unchanged. Nausea/Vomiting: No. Medication's Wasted: Heparin = 1000 units. Procedure completed. Patient transferred by bed to 1st floor. Vital chart was stopped. Access Site Site: Right Femoral artery Sheath Size: 6 Fr Hemostasis Method: Suture Hemostasis Success: Successful Procedure Medications Start: 7:44 AM Stop: 7:44 AM Medication: Versed Amount: 1 mg Route: I.V. Start: 7:45 AM Stop: 7:45 AM Medication: Fentanyl Amount: 50 mcg Route: I.V. Start: 7:47 AM Stop: 7:47 AM Medication: Versed Amount: 1 mg Route: I.V. Start: 8:02 AM Stop: 8:02 AM Medication: Heparin Amount: 3000 units Route: I.V. Start: 8:03 AM Stop: 8:03 AM Medication: Fentanyl Amount: 50 mcg Route: I.V. I, the attending physician, have reviewed and verified all procedure medications. Yes, all medications given per verbal order History/Risk Factors Hypertension: Yes Dyslipidemia: Yes Peripheral Arterial Disease (PAD): No Myocardial Infarction (RI): No Obesity: No Tobacco Use: Current/Recent(w/in 1 year) Prior Interventions PCI: Yes CABG: No Valve Surgery: No Date of PCI: 02/14/2016 Report Signatures Finalized by Benji Solis MD on 03/21/2023 03:29 PM
[2023-03-18] MEDS: diphenhydrAMINE 50 mg Capsule PO (06:33)
[2023-03-18] MEDS: aspirin 325 mg Tablet PO (06:33)
--- NOTE | 2023-03-18 07:40 | P.HP_ITS ---
Same Day Surgery H&P Indication for Procedure/HPI DATE OF PROCEDURE: March 18, 2023 CHIEF COMPLAINT/INDICATIONFOR SURGICAL PROCEDURE: Worsening angina PREOP DIAGNOSIS: Worsening angina PLANNED PROCEDURE: Operation Date: 03/18/23 07:00 Proposed Procedures p [facility] W/- W/O 65314,R07.9, E78.5,I49.9,I10,I25.118(Left) - Benji Solis M.D Possible percutaneous coronary intervention 67-year-old woman with past medical history of CAD, hyperlipidemia, hypertension who has been having on and off chest pain symptoms that she feels worse in the recent past. Her primary pit shovel operator recommended a stress test however patient did not want to undergo a stress test given her prior experience. Plan for coronary angiogram with possible percutaneous coronary intervention. Risks and benefits of the procedure have been discussed with the patient. Medications/Allergies* Home Medications Medication Instructions Recorded Confirmed Type fluoxetine 20 mg capsule (Prozac) 40 mg PO DAILY 10/27/19 03/18/23 History topiramate 50 mg tablet (Topamax) 50 mg PO BID 10/27/19 03/18/23 History pantoprazole 40 mg tablet,delayed 40 mg PO BID 10/28/19 03/18/23 History release (Protonix) cyanocobalamin (vitamin B-12) 500 500 mcg PO DAILY 07/19/21 03/18/23 History mcg tablet (Vitamin B-12) albuterol sulfate 90 mcg/actuation 2 puff inhalation Q6H PRN 01/17/22 03/18/23 History aerosol inhaler (Ventolin HFA) Shortness Of Breath budesonide-formoterol HFA 80 1 inh inhalation BID PRN Shortness 01/17/22 03/18/23 History mcg-4.5 mcg/actuation aerosol Of Breath inhaler (Symbicort) oxycodone 15 mg tablet 10 mg PO .6 times daily PRN pain 02/12/23 03/18/23 History multivitamin-ferrous 1 tab PO DAILY 03/17/23 03/18/23 History fumarate-folic acid 18 mg-400 mcg tablet (Centrum Women) Allergies/Adverse Reactions Allergy/AdvReac Type Severity Reaction Status Date / Time morphine Allergy ADR-Halluci Verified 03/18/23 06:18 nating Umqbqhm-SNZ-NhR Reductase Allergy muscle Verified 03/18/23 06:18 Inhibitor cramps [Zrompaw-Xlq-Ysy Reductase Inhibitor] cortisone AdvReac LOOPY Verified 03/18/23 06:18 gabapentin AdvReac HEADACHE Verified 03/18/23 06:18 prednisone AdvReac HYPERTENSION Verified 03/18/23 06:18 AND DIZZINESS tramadol AdvReac HEADACHE Verified 03/18/23 06:18 Current Medications: Generic Name Dose Route Start Last Admin Trade Name Freq PRN Reason Stop Dose Admin Sodium Chloride 1,000 mls @ 50 mls/hr 03/18/23 06:00 03/18/23 06:33 Sodium Chloride 0.9% IV 03/19/23 01:59 Not Given .Q20H ONE Pertinent History/Comorbid Conditions* Medical History 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 Chronic right hip pain Encounter for long-term opiate analgesic use Long-term use of high-risk medication continue to monitor use of medication Risk for falls Smoker Counselled regarding smoking cessation Surgical History (Updated 10/28/19 @ 14:40 by TAMMY Bajwa) S/P laparotomy EXPLORATORY AGE 30YRS S/P partial hysterectomy 30 YEARS OLD S/P tubal ligation 1981 Family History (Updated 12/26/20 @ 15:38 by Hodan Ocampo RN) Diabetes Grandmother Family/Other CAD (coronary artery disease) Grandmother Family/Other UNCLE AND AUNT Suicide Mother Cancer Father LEUKEMIA Family/Other COUSIN - LYMPHOMA Denies family history of Clotting disorder Dementia Chronic kidney disease (CKD) Anesthesia complication Bleeding disorder Lung disease Stroke Social History Smoking and tobacco status: current every day smoker cigarettes Packs smoked per day: 0.5 Alcohol intake: never Substance/Drug Use: never Pertinent Exam Findings alert, oriented x 3, clear to auscultation bilaterally and regular rate & rhythm Conscious Sedation Assessment PATIENT ASSESSED PRIOR TO SEDATION, WITH NO CHANGE NOTED: Yes AIRWAY EVAL/ANESTHESIA PLAN: normal airway, ASA III, Local Anesthesia, Risks, benefits & alternatives of sedation and/or procedure discussed and Patient agrees to continue as planned ADDITIONAL INFORMATION: Moderate sedation Recommendations Surgery/Procedure today (Left heart cath with possible percutaneous coronary intervention) Coding Level of Care Code Acute Code for Chg Fwd Diagnoses
[2023-03-18] MEDS: sodium chloride 0.9% 1,000 ML 100 ML IV (08:30)
--- NOTE | 2023-03-18 10:01 | PC.NURSE ---
received from cardiac lab nurse at 0830 via bed.report received.pt is drowsy but easily awakened and alert and oriented x 3.denies pain at present.sb on monitor.right femoral arterial sheath intact to pressurized system.drsg is dry and intact.no hematoma noted.right leg is warm to touch and with brisk capillary refill.dp pulse palpated.pt and sister instructed in activity restrictions s/p femoral artery procedure..and instructed to notify staff for any bleeding,pain,numbness,sob or for any concerns at all.they verb understanding of instructions
[2023-03-18 11:23] LABS: Partial Thromboplastin Time 96.9 SECONDS (23.9-36.7)
[2023-03-18 12:13] LABS: Basophils % 0.3 %; Eosinophils # 0.4 10^3/uL (0.0-0.8); Eosinophils % 5.3 %; Lymphocytes # 2.6 10^3/uL (0.8-4.8); Lymphocytes % 36.5 %; Mean Corpuscular HGB Conc 31.4 g/dL (30.0-36.0); Mean Corpuscular Hemoglobin 31.8 pg (28.0-34.0); Mean Corpuscular Volume 101.2 fl (81-99); Mean Platelet Volume 11.3 fL (7.4-10.4); Monocytes # 0.5 10^3/uL (0.2-0.9); Monocytes % 7.4 %; Neutrophils # 3.64 10^3/uL (1.8-7.7); Neutrophils % 50.4 %; Nucleated Red Blood Cells % 0 %; Platelet Count 185 10^3/cmm (130-400); Red Blood Count 3.46 10^6/uL (4.1-5.3); Red Cell Distribution Width 11.8 % (12.1-15.1); White Blood Count 7.2 10^3/uL (4.0-10.0)
[2023-03-18 12:29] LABS: Anion Gap 10.9 (5-19); Blood Urea Nitrogen 13 mg/dL (8-23); Calcium 8.2 mg/dL (8.5-10.5); Carbon Dioxide 20 mmol/L (22-29); Chloride 111 mmol/L (98-107); Creatinine Clr Calc Pharmacy 45.1817; Glucose 112 mg/dL (65-115); Osmolality Calculated 287 mOsm/kg (285-295); Potassium 3.9 mmol/L (3.5-5.1); Sodium 138 mmol/L (136-145)
[2023-03-18] MEDS: oxyCODONE 5 mg IR Tab/Cap 10 MG PO ×2 (13:05→17:44)
[2023-03-18 13:26] LABS: Partial Thromboplastin Time 30.1 SECONDS (23.9-36.7)
[2023-03-18] MEDS: fentaNYL 50 mcg/mL INJ 2mL IVP (14:59)
--- NOTE | 2023-03-18 15:46 | PC.NURSE ---
arterial sheath pull:50 mcgs fentanyl given prior to sheath pull.right femoral arterial sheath pulled at 1510.manual pressure held x 20 min.vss through-out procedure.no hematoma formation noted.right leg remained warm to touch and with brisk capillary refill.palpable dp and pt pulses noted.pt instructed in activity restrictions s/p femoral artery sheath pull....and instructed to notify staff for any bleeding,pain,sob,numbness or for any concerns at all.pt verb understanding of instructions.
== END 2023-03-18 21:30 | disposition home or self-care (01) ==
LOC: CCL 06:04 → CSU 08:42
PROVIDERS: PCP Family Medicine; Visit Provider Internal Medicine
DX: I25.118 Atherosclerotic heart disease of native coronary artery with other forms of angina pectoris (principal); E78.5 Hyperlipidemia, unspecified; I10 Essential (primary) hypertension; Z79.891 Long term (current) use of opiate analgesic; F17.210 Nicotine dependence, cigarettes, uncomplicated
CPT/HCPCS: 36415; 80048; 85025; 85347; 85730; 93458; 93571; 96365; 99152; 99153; C1769; C1887; C1894; J1644; J2250; J3010; J3490; J7030; Q0163; Q9967

== ENCOUNTER 2023-03-22 20:37 | Emergency (ER) | payer MEDICARE, MEDICAID, SELFPAY ==
[2023-03-22 20:45] VITALS: BP 141/90; PULSE 63; RESP 12; TEMP 36.4; O2SAT 98; BMI 16.9
--- NOTE | 2023-03-22 21:15 | XRR_ITS ---
PROCEDURE INFORMATION: Exam: XR Right Hip Exam date and time: 03/22/2023 9:21 PM Age: 67 years old Clinical indication: Injury or trauma; Fall; Blunt trauma (contusions or hematomas); Right; Hip; Additional info: Fall, tender, bruise on trochanter TECHNIQUE: Imaging protocol: Radiologic exam of the right hip. Views: 1 view hip with pelvis when performed. COMPARISON: CT abdomen pelvis w con* [id number] 08/24/2021 4:48 PM FINDINGS: Bones/joints: Degenerative changes in the hip joints, severe on the right and moderate on the left. No fracture. Soft tissues: Unremarkable. XR/XR hip RT 2-3V wo/w pel* [id number] IMPRESSION: No acute findings.
--- NOTE | 2023-03-22 21:27 | W.ED.EXTPRO ---
HPI - Extremity Problem General: Chief complaint: Extremity Injury, Lower Stated complaint: Inscision has Bruise and Fell and Knee Numb Time Seen by Provider: 03/22/23 20:57 Source: patient Mode of arrival: ambulatory Limitations: no limitations History of Present Illness: Right hipPwilner presents to the emergency department today for evaluation and treatment of pain and new onset bruising. Patient is status post angiography with right femoral access approximately 5 days ago. Patient reports no issues with her access sites since that time. She is on anticoagulation. However, patient states she had approximately 2 falls today-each within approximately 10 minutes of each other. Since that time she has developed bruising now on her right mid and proximal, medial thigh with tenderness and pain. She also has right lateral hip pain. Patient notes continued right anterior knee numbness which has been present since the day of her angio. Review of Systems General: Reports: 10 or more systems reviewed and unremarkable except in HPI and below PFSH ED PFSH: Medical History 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 Chronic right hip pain Encounter for long-term opiate analgesic use Long-term use of high-risk medication continue to monitor use of medication Risk for falls Smoker Counselled regarding smoking cessation Surgical History S/P laparotomy EXPLORATORY AGE 30YRS S/P partial hysterectomy 30 YEARS OLD S/P tubal ligation 1981 Family History Grandmother Diabetes CAD (coronary artery disease) Father Cancer LEUKEMIA Family/Other Cancer COUSIN - LYMPHOMA CAD (coronary artery disease) UNCLE AND AUNT Diabetes Mother Suicide Denies family history of Clotting disorder Dementia Chronic kidney disease (CKD) Anesthesia complication Bleeding disorder Lung disease Stroke Social History Smoking and tobacco status: current every day smoker cigarettes Packs smoked per day: 0.5 Alcohol intake: never Substance/Drug Use: never Physical Exam Const: COMMON NORMALS: no acute distress, patient oriented x3 and alert HENMT: COMMON NORMALS: normocephalic, atraumatic and hearing grossly normal bilaterally HEAD & SCALP: normocephalic and atraumatic Eye: COMMON NORMALS: Equal, round and reactive pupils present, EOMs intact bilaterally and conjunctivae normal CONJUNCTIVA: Yes conjunctivae normal PUPIL: Yes Equal, round and reactive pupils present Neck/C-Spine: COMMON NORMALS: full ROM and no JVD Lymph: LYMPHATIC: no lymphadenopathy noted Resp: COMMON NORMALS: normal respiratory effort, No retractions and No use of accessory muscles Cardio: COMMON NORMALS: no JVD and regular rate RATE: regular rate Extremity: NARRATIVE EXTREMITY EXAM: Patient is tender to palpation on the left lateral hip. No significant tenderness on palpation in the groin region. Patient demonstrates ability to flex and extend at both the right hip and knee. Neuro: COMMON NORMALS: patient oriented x3 SENSORIUM/ORIENTATION: Yes alert Psych: COMMON NORMALS: mental status grossly normal, Normal thought process present, cooperative and normal affect THOUGHT PROCESS: Normal thought process present Skin: NARRATIVE SKIN EXAM: Patient has a small bruise on the right lateral hip overlying the greater trochanter approximately 2 cm in diameter. No signs of broken skin and no bleeding. Mild swelling present. Patient has a very large area of dark purple hematoma noted to the mid and proximal medial right thigh. Is approximately 12 to 14 cm in diameter. Patient's angio access site appears well-healed. There is a faint yellow bruising around the area but there is no swelling, no tenderness, no draining. Course Vital Signs: Vital signs: Vital Signs Temperature 97.6 F 03/22/23 20:45 Pulse Rate 58 L 03/22/23 23:22 Respiratory Rate 16 03/22/23 23:22 Blood Pressure 128/82 03/22/23 23:22 Pulse Oximetry 96 03/22/23 23:22 Oxygen Delivery Me thod Room Air 03/22/23 22:40 MDM - Extremity (Nontraumatic) Medical Decision Making Patient presented to the emergency department today concerned for large bruising developing on her right leg after a fall at home today. Patient is status post angio to the right femoral artery for access and she is on anticoagulation. Patient has not had any difficulties until today and, decided to come in due to the bruising and swelling on her right lateral hip and the significance of the hematoma that developed on her thigh. X-rays negative for any signs of acute bony injury or fracture to the pelvis or the femur. Patient CTA reveals no signs of any leaking or damage to her angio access site. It is read as large hematoma in the subcutaneous tissue. Discussed all this with the patient. Explained that the bruising may begin to spread down the leg due to gravity but, does not appear that she has any current, active bleeding at this time. Patient also has a hip contusion without fracture. Encouraged follow-up with primary care later this week for general recheck of her symptoms. Differential Diagnosis Likely cellulitis, superficial thrombophlebitis, lower extremity edema and deep vein thrombosis of lower extremity Lab Data Radiology Impressions Hip/Pelvis X-Ray 03/22/23 21:15 IMPRESSION: No acute findings. Discharge Plan Discharge Patient Disposition: Home Clinical Impression: Contusion of hip, right, Hematoma of right thigh, Chronic anticoagulation Condition: Stable Prescriptions: No Action fluoxetine [Prozac] 20 mg capsule 40 mg PO DAILY topiramate [Topamax] 50 mg tablet 50 mg PO BID pantoprazole [Protonix] 40 mg tablet,delayed release (DR/EC) 40 mg PO BID cyanocobalamin (vitamin B-12) [Vitamin B-12] 500 mcg tablet 500 mcg PO DAILY oxycodone 15 mg tablet 10 mg PO .6 times daily PRN (Reason: pain) Rx Instructions: Fill on or after 12/20/21 nitroglycerin [Nitrostat] 0.4 mg tablet, sublingual 0.4 mg SUBLINGUAL Q5M PRN (Reason: chest pain) Qty: 1 0RF clopidogrel [Plavix] 75 mg tablet 75 mg PO DAILY Qty: 90 3RF lisinopril 10 mg tablet 10 mg PO DAILY Qty: 90 3RF metoprolol tartrate 50 mg tablet 50 mg PO BID 90 Days Qty: 180 3RF Repatha SureClick 140 mg/mL pen injector 140 mg SUBCUT Q14D Qty: 6 3RF Klor-Con M20 20 mEq tablet,ER particles/crystals 20 meq PO DAILY Qty: 90 3RF albuterol sulfate [Ventolin HFA] 90 mcg/actuation Hfa Aerosol Inhaler 2 puff INHALATION Q6H PRN (Reason: Shortness Of Breath) budesonide-formoterol [Symbicort] 80-4.5 mcg/actuation Hfa Aerosol Inhaler 1 inh INHALATION BID PRN (Reason: Shortness Of Breath) Centrum Women 18-400 mg-mcg Tablet 1 tab PO DAILY Discharge Orders: Discharge ED (Routine); Ordered 03/22/23 Ordered By: Cait Farris Referrals: Anabel Bishop MD [Primary Care Provider] - Discharge Diet: Usual diet Discharge Activity: Increase activity as tolerated Patient Instructions: Hematoma (ED) Activity Restrictions/Additional Instructions: X-ray today shows no signs of any acute fracture to your femur, hip, or pelvis from your fall. You most likely be tender and sore on your right hip for a while as you did cause bruising to the skin and, as you are thin framed, most likely incurred a contusion to your right greater trochanter. The examination of your vascular tract in your leg shows no signs of any leaking from your angio site. It does appear you have a hematoma incurred from injury when you fell but, does not appear to have any continued bleeding at the site. You may notice spreading of the bruise as it continues to settle under the soft tissues but, imaging does not note active bleeding at this time. We recommend a follow-up appointment with your primary care doctor this week for recheck of your hip and bruising. Coding Level of Care Code ED Completion Supervisor for Yanet Peguero
--- NOTE | 2023-03-22 21:38 | CTR_ITS ---
PROCEDURE INFORMATION: Exam: CTA Right Lower Extremity With Contrast Exam date and time: 03/22/2023 9:54 PM Age: 67 years old Clinical indication: Injury or trauma; Fall; Blunt trauma; Thigh or upper leg and knee; Right; Prior surgery; Surgery date: 3-7 days post-operative; Surgery type: Heart cath five days ago. Partial hysterectomy. Tubal; Patient HX: Patient had heart cath through RT femoral five days ago. Fell this evening with bruising to RT groin, thigh, and knee. ; Additional info: Bruising, fall, S/P angio (rt femoral access), lrg hematoma on blood TECHNIQUE: Imaging protocol: Computed tomographic angiography of the right lower extremity with contrast. 3D rendering (Not supervised by radiologist): MIP and/or 3D reconstructed images were created by the technologist. Radiation optimization: All CT scans at this facility use at least one of these dose optimization techniques: automated exposure control; mA and/or kV adjustment per patient size (includes targeted exams where dose is matched to clinical indication); or iterative reconstruction. Contrast material: OMNI 350; Contrast volume: 100 ml; Contrast route: INTRAVENOUS (IV); REPORTING DATA: Count of CT and Cardiac NM exams in prior 12 months: This patient has received 0 known CTs and 0 known cardiac nuclear medicine studies in the 12 months prior to the current study. COMPARISON: CT abdomen pelvis w con* [id number] 08/24/2021 4:48 PM RADIATION DOSE METRICS: Total DLP (mGy-cm): 340.18 FINDINGS: Aorta: Calcified plaque in the abdominal aorta. No visible aneurysm or stenosis. Right iliac arteries: Calcified plaque in the right common and external iliac arteries without significant stenosis. Right femoral/popliteal arteries: Calcified plaque with mild stenosis in the right common femoral artery. Right infrapopliteal arteries: No occlusion or significant stenosis. Other arteries: The proximal and mid infrapopliteal arteries appear widely patent without stenosis. The distal portions of the arteries within the distal lower leg and foot are not opacified with contrast, most likely related to bolus timing. Kidneys and ureters: Right renal cyst, Hounsfield units less than 20. No follow-up imaging is recommended. Reproductive: The uterus is absent. Bones/joints: Severe hypertrophic degenerative changes of the right hip joint with subchondral cyst formation. The bones are otherwise intact. Soft tissues: Mild subcutaneous soft tissue edema in the right groin and medial thigh. No organized fluid collection or hematoma. No pseudoaneurysm or hematoma visualized in the right groin. [place] [id number] IMPRESSION: 1. No pseudoaneurysm or organized fluid collection in the right groin. 2. Mild subcutaneous soft tissue edema or cellulitis in the right groin and medial thigh. 3. No significant large artery occlusion or stenosis. The distal infrapopliteal arteries are not opacified with contrast, due to contrast bolus timing.
[2023-03-22 21:39] VITALS: BP 141/81; PULSE 51; RESP 16; O2SAT 98
[2023-03-22] MEDS: iohexol 350 mg/mL 500 mL Btl (per mL) IV (22:08)
[2023-03-22 22:40] VITALS: BP 159/81; PULSE 53; RESP 16; O2SAT 99
[2023-03-22] MEDS: acetaminophen 325 mg Tablet 650 MG PO (22:55)
[2023-03-22 23:22] VITALS: BP 128/82; PULSE 58; RESP 16; O2SAT 96
== END 2023-03-22 23:23 | disposition home or self-care (01) ==
PROVIDERS: Emergency Provider Physician Assistant; PCP Family Medicine
DX: S70.11XA Contusion of right thigh, initial encounter (principal); S70.01XA Contusion of right hip, initial encounter; W19.XXXA Unspecified fall, initial encounter; R29.6 Repeated falls; Z79.01 Long term (current) use of anticoagulants
CPT/HCPCS: 73502; 73706; 99284; Q9967

== ENCOUNTER → 2023-03-25 13:58 | Outpatient (BNVA) | payer MEDICARE, MEDICAID, SELFPAY | PROVIDERS: PCP Family Medicine; Visit Provider Nurse Practitioner Family | DX: I25.118 Atherosclerotic heart disease of native coronary artery with other forms of angina pectoris (principal); I10 Essential (primary) hypertension; F17.210 Nicotine dependence, cigarettes, uncomplicated | CPT/HCPCS: 80048; 99214 ==

== ENCOUNTER 2023-08-10 12:46 | Inpatient (IN) | payer MEDICARE, MEDICAID, SELFPAY ==
[2023-08-10] VITALS (10 sets, daily range): BP systolic 72–95; BP diastolic 55–71; PULSE 75–112; RESP 18–19; TEMP 36.2–36.8; O2SAT 97–100
--- NOTE | 2023-08-10 12:58 | ED_ITS ---
HPI - Nausea/Vomiting/Diarrhea General: Chief complaint: Nausea/Vomiting/Diarrhea Stated complaint: diarrhea x10 days Time Seen by Provider: 08/10/23 12:47 Source: patient Mode of arrival: ambulatory History of Present Illness: 67-year-old female presents emergency room with complaint of diarrhea for the last 10 days. Generally not feeling well unexplained weight loss over the last several weeks. Denies any medic easy melena hematemesis or coffee-ground emesis. Has previously had a cholecystectomy there is a question of c holedocholithiasis. She denies any abdominal pain chest pain or shortness of breath. MD elicited complaint: nausea and diarrhea Onset (ago): day(s) (10) Description of diarrhea: other (black) Associated nausea: No Associated abdominal pain: No Location of pain: None Exacerbating factors: none Relieving factors: none Associated symtoms: Reports anorexia, malaise and weakness; Denies chest pain, dysuria or nausea Review of Systems Const: Reports: malaise; Denies: fever(s) or chills Card: Denies: chest pain Resp: Denies: dyspnea GI: Denies: abdominal pain or nausea : Denies: dysuria, urinary frequency or urinary urgency Musc: Denies: neck pain or back pain Skin/Breast: Denies: rash PFSH ED PFSH: Medical History 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 Chronic right hip pain Encounter for long-term opiate analgesic use Long-term use of high-risk medication continue to monitor use of medication Risk for falls Smoker Counselled regarding smoking cessation Surgical History S/P laparotomy EXPLORATORY AGE 30YRS S/P partial hysterectomy 30 YEARS OLD S/P tubal ligation 1981 Family History Grandmother Diabetes CAD (coronary artery disease) Father Cancer LEUKEMIA Family/Other Cancer COUSIN - LYMPHOMA CAD (coronary artery disease) UNCLE AND AUNT Diabetes Mother Suicide Denies family history of Clotting disorder Dementia Chronic kidney disease (CKD) Anesthesia complication Bleeding disorder Lung disease Stroke Social History Smoking and tobacco/nicotine status: current every day tobacco/nicotine user cigarettes Packs smoked per day: 0.5 Alcohol intake: never Substance/Drug Use: never Physical Exam Const: GENERAL APPEARANCE: cooperative and comfortable NUTRITIONAL APPEARANCE: cachectic ORIENTATION/CONSCIOUSNESS: Yes awake, Yes oriented to person, Yes oriented to place and Yes oriented to time HENMT: COMMON NORMALS: normocephalic, atraumatic and hearing grossly normal bilaterally HEAD & SCALP: normocephalic and atraumatic Resp: COMMON NORMALS: normal respiratory effort, No retractions, No use of accessory muscles and clear to auscultation bilaterally AUSCULTATION: clear to auscultation bilaterally Cardio: COMMON NORMALS: regular rate, regular rhythm and No murmurs present (Cardio) RATE: regular rate RHYTHM: regular rhythm GI: COMMON NORMALS: Soft to palpation and No hepatosplenomegaly present AUSCULTATION: Yes normoactive bowel sounds PALPATION: Yes Soft to palpation, No Tenderness to palpation present (GI), No Guarding due to palpation present (GI) and Yes No hepatosplenomegaly present Extremity: COMMON NORMALS: normal to inspection, capillary refill normal, no clubbing, cyanosis or edema, no calf tenderness and no pedal edema Neuro: SENSORIUM/ORIENTATION: Yes oriented to person, Yes oriented to place and Yes oriented to time Skin: COMMON NORMALS: no rashes or lesions noted GENERAL SKIN EXAM: no rashes or lesions noted Course Vital Signs: Vital signs: Vital Signs Temperature 98.2 F 08/10/23 13:21 Pulse Rate 92 08/10/23 16:30 Respiratory Rate 19 H 08/10/23 16:30 Blood Pressure 95/71 08/10/23 16:30 Pulse Oximetry 99 08/10/23 16:30 MDM - Nausea/Vomiting/Diarrhea Medical Decision Making Patient has unexplained weight loss acute kidney injury on initial labs as well as pancreatitis. Her liver enzymes and T. bili were normal. Had anticipated likely pancreatic mass however CT did not show the history D-dimer was markedly elevated also there was no PE. We will admit her for hypokalemia acute kidney injury volume depletion pancreatitis. Discussed with hospitalist orders written. Her lactate was elevated which I think is due to her volume depletion we have gotten cultures and started her on fluids and IV antibiotics under the sepsis protocol. Her blood pressure has improved relative to her weight her map is now stable enough discussed Dr. Miranda will admit to [facility]. Medical Records I reviewed the patient's medical records. Lab Data I reviewed the patient's lab results. 08/10/23 12:50 08/10/23 12:50 Radiology Impressions Chest/Abdomen/Pelvis CT 08/10/23 14:57 IMPRESSION: 1. No pulmonary embolism. 2. Additional details as above. IMPRESSION: 1. New moderate L1 vertebral body compression deformity. Uncertain age. MRI could clarify if needed. 2. No other acute findings. 3. Additional details as above. Laboratory Results WBC 12.75 10^3/uL (3.29-11.43) H 08/10/23 12:50 RBC 4.02 10^6/uL (3.85-5.65) 08/10/23 12:50 Hgb 12.60 g/dL (11.27-16.99) 08/10/23 12:50 Hct 35.6 % (36-47) L 08/10/23 12:50 MCV 88.6 fl (85-98) 08/10/23 12:50 MCH 31.3 pg (27-33) 08/10/23 12:50 MCHC 35.4 g/dL (30-55) 08/10/23 12:50 RDW 11.7 % (12.1-15.1) L 08/10/23 12:50 Plt Count 245 10^3/cmm (157-399) 08/10/23 12:50 MPV 12.3 fL (7.4-10.4) H 08/10/23 12:50 Neut % (Auto) 73.9 % 08/10/23 12:50 Lymph % (Auto) 16.1 % 08/10/23 12:50 [place] % (Auto) 7.6 % 08/10/23 12:50 Eos % (Auto) 1.4 % 08/10/23 12:50 Baso % (Auto) 0.2 % 08/10/23 12:50 Neut # (Auto) 9.43 10^3/uL (1.8-7.7) H 08/10/23 12:50 Lymph # (Auto) 2.1 10^3/uL (0.8-4.8) 08/10/23 12:50 [place] # (Auto) 1.0 10^3/uL (0.2-0.9) H 08/10/23 12:50 Eos # (Auto) 0.2 10^3/uL (0.0-0.8) 08/10/23 12:50 Baso # (Auto) 0.0 10^3/uL (0.0-0.1) 08/10/23 12:50 Nucleated RBC % (auto) 0 % 08/10/23 12:50 Nucleated RBCs # 0.0 /100WBC 08/10/23 12:50 D-Dimer 6.84 ug/mLFEU (0-0.59) H 08/10/23 12:50 Sodium 133 mmol/L (136-145) L 08/10/23 12:50 Potassium 2.5 mmol/L (3.5-5.1) L* 08/10/23 12:50 Chloride 97 mmol/L (98-107) L 08/10/23 12:50 Carbon Dioxide 17 mmol/L (22-29) L 08/10/23 12:50 Anion Gap 21.5 (5-19) H 08/10/23 12:50 BUN 127 mg/dL (8-23) H* D 08/10/23 12:50 Creatinine 2.3 mg/dL (0.5-0.9) H 08/10/23 12:50 GFR Calculation 21.3 mL/min (90-130) L 08/10/23 12:50 Glucose 193 mg/dL (65-115) H 08/10/23 12:50 Calculated Osmolality 322 mOsm/kg (285-295) H 08/10/23 12:50 Lactic Acid 3.2 mmol/L (0.5-2.2) H 08/10/23 13:13 Calcium 9.7 mg/dL (8.5-10.5) 08/10/23 12:50 Total Bilirubin 0.4 mg/dL (0.15-1.2) 08/10/23 12:50 GGT 14 U/L (5-36) 08/10/23 12:50 AST 21 U/L (0-32) 08/10/23 12:50 ALT 14 U/L (0-33) 08/10/23 12:50 Alkaline Phosphatase 95 U/L (35-105) 08/10/23 12:50 Troponin T Baseline 202 ng/L (0-10) H* 08/10/23 12:50 Troponin T 120 Minute 173.1 ng/L (0-10) H 08/10/23 15:21 Delta Troponin T -28.9 ABS# (0-10) L 08/10/23 15:21 C-Reactive Protein 13.4 mg/L (0.0-4.9) H 08/10/23 12:50 Total Protein 7.1 g/dL (6.6-8.7) 08/10/23 12:50 Albumin 4.1 g/dL (3.5-5.2) 08/10/23 12:50 Globulin 3.0 g/dL (1.3-4.6) 08/10/23 12:50 Lipase 1178 U/L (13-60) H 08/10/23 12:50 Procalcitonin 0.18 ng/mL (0-0.5) 08/10/23 12:50 Urine Color Yellow (Yellow) 08/10/23 14:48 Urine Appearance Sl hazy (CLEAR) A 08/10/23 14:48 Urine pH 5 (5-7) 08/10/23 14:48 Ur Specific [place] 1.010 (1.005-1.030) 08/10/23 14:48 Urine Protein Trace (Negative) 08/10/23 14:48 Urine Glucose (UA) Norm (Normal) 08/10/23 14:48 Urine Ketones 1+ (Negative) H 08/10/23 14:48 Urine Blood Neg (Negative) 08/10/23 14:48 Urine Nitrate Negative (Negative) 08/10/23 14:48 Urine Bilirubin Neg (Negative) 08/10/23 14:48 Urine Urobilinogen Norm mg/dL (Negative) 08/10/23 14:48 Ur Leukocyte Esterase 2+ (Negative) H 08/10/23 14:48 Urine RBC 0-4 /hpf (0-2) H 08/10/23 14:48 Urine WBC 25-40 /hpf (0-5) H 08/10/23 14:48 Ur Squamous Epith Cells 5-10 /hpf (0-5) H 08/10/23 14:48 Amorphous Sediment Not Reportable 08/10/23 14:48 Urine Bacteria 1+ /hpf (NONE) H 08/10/23 14:48 Hyaline Casts 0-4 /lpf H 08/10/23 14:48 Urine Mucus 1+ /hpf 08/10/23 14:48 Ethyl Alcohol < 10 mg/dL (0-10) 08/10/23 12:50 All radiology interpretation(s) finalized by discharge Discharge Plan Discharge Patient Disposition: Admitted As Inpatient Clinical Impression: Pancreatitis, Acute kidney injury, Weight loss, Hypokalemia Condition: Stable Coding Level of Care Code ED Extended Insurance Clerk for Yanet Peguero
[2023-08-10 13:07] LABS: Basophils % 0.2 %; Eosinophils # 0.2 10^3/uL (0.0-0.8); Eosinophils % 1.4 %; Hematocrit 35.6 % (36-47); Lymphocytes # 2.1 10^3/uL (0.8-4.8); Lymphocytes % 16.1 %; Mean Corpuscular HGB Conc 35.4 g/dL (30-55); Mean Corpuscular Hemoglobin 31.3 pg (27-33); Mean Corpuscular Volume 88.6 fl (85-98); Mean Platelet Volume 12.3 fL (7.4-10.4); Monocytes % 7.6 %; Neutrophils # 9.43 10^3/uL (1.8-7.7); Neutrophils % 73.9 %; Nucleated Red Blood Cells % 0 %; Platelet Count 245 10^3/cmm (157-399); Red Blood Count 4.02 10^6/uL (3.85-5.65); Red Cell Distribution Width 11.7 % (12.1-15.1); White Blood Count 12.75 10^3/uL (3.29-11.43)
[2023-08-10] MEDS: iohexol 350 mg/mL 500 mL Btl (per mL) IV (13:18)
[2023-08-10 13:19] LABS: Alanine Aminotransferase 14 U/L (0-33); Albumin Level 4.1 g/dL (3.5-5.2); Alkaline Phosphatase 95 U/L (35-105); Calcium 9.7 mg/dL (8.5-10.5); Carbon Dioxide 17 mmol/L (22-29); Chloride 97 mmol/L (98-107); Glomerular Filtration Rate 21.3 mL/min (90-130); Glucose 193 mg/dL (65-115); Sodium 133 mmol/L (136-145); Total Bilirubin 0.4 mg/dL (0.15-1.2); Total Protein 7.1 g/dL (6.6-8.7)
[2023-08-10] MEDS: sodium chloride 0.9% 1,000 ML 999 ML IV ×2 (13:19→18:02)
[2023-08-10 13:36] LABS: Lactic Sepsis W/Reflex 3.2 mmol/L (0.5-2.2)
[2023-08-10 13:37] LABS: Anion Gap 21.5 (5-19); Aspartate Amino Transferase 21 U/L (0-32); Lipase 1178 U/L (13-60); Osmolality Calculated 322 mOsm/kg (285-295)
[2023-08-10 13:44] LABS: Blood Urea Nitrogen 127 mg/dL (8-23); Potassium 2.5 mmol/L (3.5-5.1)
--- NOTE | 2023-08-10 13:56 | XR_ITS ---
WS: [id number] Exam: XR chest 1V portable [id number] Date/Time of Exam: 08/10/2023 1:56 PM Reason For Exam: dyspnea/cough Comparison 09/26/2022. The lungs are hyperinflated and clear. Normal cardiomediastinal silhouette. No pleural effusions. Bon y structures are intact. IMPRESSION: 1. Pulmonary hyperinflation which may indicate obstructive lung disease. No acute process.
[2023-08-10] MEDS: cefTRIAXone 1,000 MG in sodium chloride 0.9% (plus) 50 ML 100 MG IV (14:10)
--- NOTE | 2023-08-10 14:14 | ECG_ITS ---
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 Measurements Intervals [place] Rate: 91 P: 72 NH: 157 QRS: 44 QRSD: 67 T: 76 QT: 370 QTc: 456 Interpretive Statements SINUS RHYTHM SEPTAL MYOCARDIAL INFARCTION , PROBABLY OLD [40+ ms Q WAVE IN V1/V2] Compared to ECG 11/05/2016 07:58:15 Myocardial infarct finding now present Electronically Signed On 08-10-2023 17:44:42 CDT by Marisol Garcia M.D. [id number]
[2023-08-10 14:45] LABS: C Reactive Protein 13.4 mg/L (0.0-4.9); Gamma Glutamyl Transferase 14 U/L (5-36)
[2023-08-10 14:46] LABS: Alcohol Level < 10 mg/dL (0-10)
[2023-08-10 14:47] LABS: D Dimer 6.84 ug/mLFEU (0-0.59); Troponin(5th) Baseline 202 ng/L (0-10)
[2023-08-10 14:52] LABS: Procalcitonin 0.18 ng/mL (0-0.5)
--- NOTE | 2023-08-10 14:57 | CTR_ITS ---
PROCEDURE INFORMATION: Exam: CTA Chest With Contrast Exam date and time: 08/10/2023 4:02 PM Age: 67 years old Clinical indication: Abnormal findings; Abnormal lab test; Elevated lipase; Other: Elevated d dimer; Prior surgery; Surgery date: 6+ months; Surgery type: Tubal laparotomy; Additional info: Elav d dimer, elav lipase (no abd pain), unexpl wght loss TECHNIQUE: Imaging protocol: Computed tomographic angiography of the chest with contrast. Exam focused on the arteries. 3D rendering (Not supervised by radiologist): MIP and/or 3D reconstructed images were created by the technologist. Radiation optimization: All CT scans at this facility use at least one of these dose optimization techniques: automated exposure control; mA and/or kV adjustment per patient size (includes targeted exams where dose is matched to clinical indication); or iterative reconstruction. Contrast material: OMNI 350; Contrast volume: 100 ml; Contrast route: INTRAVENOUS (IV); REPORTING DATA: Count of CT and Cardiac NM exams in prior 12 months: This patient has received [address] and 0 known cardiac nuclear medicine studies in the 12 months prior to the current study. COMPARISON: CR XR chest 1V portable [id number] 08/10/2023 1:59 PM RADIATION DOSE METRICS: Total DLP (mGy-cm): 401 FINDINGS: Pulmonary arteries: Normal. No pulmonary emboli. Aorta: Unremarkable. No aortic aneurysm. No aortic dissection. Lungs: Unremarkable. No consolidation. No masses. Pleural spaces: Unremarkable. No pneumothorax. No pleural effusion. Heart: Normal heart size. No right heart strain. Coronary arteries: Moderate amount of coronary artery calcification. Lymph nodes: Unremarkable. No enlarged lymph nodes. Bones/joints: Mild multilevel thoracic spondylosis. Otherwise, unremarkable. Soft tissues: Unremarkable. PROCEDURE INFORMATION: Exam: CT Abdomen And Pelvis With Contrast Exam date and time: 08/10/2023 4:02 PM Age: 67 years old Clinical indication: Abnormal findings; Abnormal lab test; Elevated lipase; Other: Elevated d dimer; Prior surgery; Surgery date: 6+ months; Surgery type: Tubal laparotomy; Additional info: Elav d dimer, elav lipase (no abd pain), unexpl wght loss TECHNIQUE: Imaging protocol: Computed tomography of the abdomen and pelvis with contrast. Radiation optimization: All CT scans at this facility use at least one of these dose optimization techniques: automated exposure control; mA and/or kV adjustment per patient size (includes targeted exams where dose is matched to clinical indication); or iterative reconstruction. Contrast material: OMNI 350; Contrast volume: 100 ml; Contrast route: INTRAVENOUS (IV); REPORTING DATA: Count of CT and Cardiac NM exams in prior 12 months: This patient has received [address] and 0 known cardiac nuclear medicine studies in the 12 months prior to the current study. COMPARISON: CT abdomen pelvis w con* [id number] 08/24/2021 4:48 PM RADIATION DOSE METRICS: Total DLP (mGy-cm): 401 FINDINGS: Lungs: Lung bases are clear as visualized. Liver: Normal. No mass. Gallbladder and bile ducts: Cholecystectomy. Normal caliber bile ducts. Pneumobilia is likely secondary to the cholecystectomy. Pancreas: Normal. No ductal dilation. Spleen: Normal. No splenomegaly. Adrenal glands: Normal. No mass. Kidneys and ureters: Unchanged simple right renal cysts need no follow-up. A few tiny nonobstructing right renal calculi are unchanged. Otherwise, unremarkable. Stomach and bowel: Unremarkable. No obstruction. No mucosal thickening. Appendix: No evidence of appendicitis. Intraperitoneal space: Unremarkable. No free air. No significant fluid collection. Vasculature: Moderate amount of arterial calcification. Moderate to severe extrinsic compression of the left renal vein by the aorta and superior mesenteric artery. Lymph nodes: Unremarkable. No enlarged lymph nodes. Urinary bladder: Unremarkable as visualized. Reproductive: Unremarkable as visualized. Bones/joints: New moderate L1 vertebral body compression deformity. Uncertain age. Mild multilevel degenerative disc disease with severe facet osteoarthritis in the lower lumbar spine. Mild-moderate scoliosis. Severe bilateral hip arthritis. Soft tissues: Unremarkable. CT/CT angio chest w abd pel w con IMPRESSION: 1. No pulmonary embolism. 2. Additional details as above. IMPRESSION: 1. New moderate L1 vertebral body compression deformity. Uncertain age. MRI could clarify if needed. 2. No other acute findings. 3. Additional details as above.
[2023-08-10 15:05] LABS: Reflex Lactate Order REFLEX LACTIC ORDERD
[2023-08-10] MEDS: potassium chloride premix 100 ML 25 MEQ IV ×2 (15:06→22:34)
[2023-08-10 15:51] LABS: Bilirubin Urine Neg (Negative); Blood Urine Neg (Negative); Glucose Urine UA Norm (Normal); Ketones Urine 1+ (Negative); Leukocyte Esterase Urine 2+ (Negative); Nitrate Urine Negative (Negative); Protein Urine Trace (Negative); Urine Appearance SL Hazy (CLEAR); Urine Color Yellow (Yellow); Urobilinogen Urine Norm (Negative); pH Urine 5 (5-7)
[2023-08-10 15:52] LABS: Add Urine Microscopic? YES
[2023-08-10 15:56] LABS: Troponin 5 2HR Delta -28.9 ABS# (0-10)
[2023-08-10 15:58] LABS: Troponin 5 2HR 173.1 ng/L (0-10)
[2023-08-10 16:02] LABS: Add Urine Culture? Yes; Bacteria Urine 1+ /hpf; Hyaline Casts Urine 0-4 /lpf; Mucus Urine 1+ /hpf; RBC Urine 0-4 /hpf (0-2); WBC Urine 25-40 /hpf (0-5)
--- NOTE | 2023-08-10 16:52 | ECG_ITS ---
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 Measurements Intervals [place] Rate: 87 P: 78 MA: 139 QRS: 5 QRSD: 77 T: 73 QT: 417 QTc: 502 Interpretive Statements SINUS RHYTHM Compared to ECG 08/10/2023 15:06:11 Myocardial infarct finding no longer present Electronically Signed On 08-10-2023 17:45:20 CDT by Marisol Garcia M.D. [id number]
--- NOTE | 2023-08-10 17:07 | USR_ITS ---
PROCEDURE INFORMATION: Exam: US Duplex Lower Extremity Veins, Bilateral Exam date and time: 08/10/2023 5:30 PM Age: 67 years old Clinical indication: Other: SOB; Additional info: Dvt TECHNIQUE: Imaging protocol: Real-time duplex ultrasound of the bilateral extremities with 2-D murillo scale, color Doppler flow and spectral waveform analysis including responses to compression and other maneuvers (when performed) with image documentation. Complete exam focused on the lower extremity veins. COMPARISON: CT angio [facility] [id number] 03/22/2023 9:54 PM FINDINGS: Right deep veins: Unremarkable. The common femoral, femoral, proximal profunda femoral and popliteal veins are patent without thrombus. Normal Doppler waveforms. Normal compressibility and/or augmentation response. Left deep veins: Unremarkable. The common femoral, femoral, proximal profunda femoral and popliteal veins are patent without thrombus. Normal Doppler waveforms. Normal compressibility and/or augmentation response. Superficial veins: Bilateral saphenofemoral junctions are patent without thrombus. Soft tissues: Unremarkable. US/CV venous duplex [facility] [id number] IMPRESSION: No evidence of deep vein thrombosis.
--- NOTE | 2023-08-10 17:07 | USCV_ITS ---
Angelika Reilly Age: 67 Gender: F : 1955 Exam Date: 08/10/2023 19:09 Ordering Phys: Paco Meng MD Technologist: HOSEA [place] [facility] [place]: NSTEMI. BP: 95 / 71 HR: 76 Rhythm: Sinus Technical Quality: Adequate MEASUREMENTS (Male / Female) Normal Values 2D ECHO LV Diastolic Diameter PLAX 3.0 cm 4.2 - 5.9 / 3.9 - 5.3 cm LV Systolic Diameter PLAX 2.0 cm IVS Diastolic Thickness 0.9 cm 0.6 - 1.0 / 0.6 - 0.9 cm IVS Systolic Thickness 1.0 cm LVPW Diastolic Thickness 1.0 cm 0.6 - 1.0 / 0.6 - 0.9 cm LVPW Systolic Thickness 1.0 cm LVOT Diameter 1.8 cm LV Ejection Fraction 2D Teich 61.9 % LV Ejection Fraction MOD 2C 66.0 % LV Ejection Fraction 2C AL 65.3 % LA Diameter 2.8 cm LA Width 3.0 cm LA Height 3.5 cm RA Width 2.1 cm RA Height 2.9 cm Aorta at Sinotubular Diameter 2.7 cm IVC Diameter 2.0 cm M-MODE Aortic Annulus Diameter 2.7 cm LA Ao Ratio MM 1.1 MV E Point Septal Separation 0.4 cm DOPPLER AV Peak Velocity 157.0 cm/s LVOT Peak Velocity 143.0 cm/s AV Area Cont Eq vti 2.6 cm squared AV Area Cont Eq pk 2.3 cm squared MV Area PHT 2.8 cm squared Mitral E to A Ratio 0.8 MV E' Velocity 33.5 cm/s Mitral E to MV E' Ratio 10.4 Mitral E to LV E' Lateral Ratio 9.8 Mitral E to LV E' Septal Ratio 11.4 TR Peak Velocity 210.7 cm/s TR Peak Gradient 17.8 mmHg TV Peak E Velocity 64.0 cm/s Right Atrial Pressure 5.0 mmHg Pulmonary Artery Systolic Pressu 22.8 mmHg PV Peak Velocity 114.0 cm/s RV Acceleration Time 0.1 s RV Ejection Time 0.4 s RV AcT/ET 0.2 FINDINGS Left Ventricle Left ventricle is normal in size. LV systolic function is normal with EF of 55 to 60%. No regional wall motion abnormalities are seen. Grade 1 diastolic dysfunction. Right Ventricle Normal in size and function Right Atrium Normal in size Left Atrium Normal in size Mitral Valve Structurally normal mitral valve. Aortic Valve Structurally normal aortic valve. No significant stenosis or regurgitation. Tricuspid Valve Mild tricuspid regurgitation. Pulmonary artery systolic pressure is normal Pulmonic Valve Not well visualized Pericardium Normal Aorta Normal in size IVC Appears to be normal CONCLUSIONS LV systolic function is normal with EF of 55-60% Grade 1 diastolic dysfunction Mild tricuspid regurgitation Compared to prior echocardiogram from 2016, no significant changes are seen Benji Solis MD (Electronically Signed) Final Date: 11 August 2023 09:25 S
--- NOTE | 2023-08-10 17:08 | P.HP_ITS ---
Providers/Chief Complaint Primary Care Provider: Anabel Bishop MD Chief Complaint: diarrhea x10 days History of Present Illness Angelika Reilly is a 67 year old female with a past medical history of hypertension who presents [facility] due to nausea, vomiting, poor appetite, fatigue, malaise,, diarrhea. According to patient she has lost weight over the last past few months, she is not exactly sure why, she has seen her primary care physician for this, she has had a poor appetite, she does that she gets full easily, she does not really complain of abdominal pain, but is been having diarrhea, fatigue, malaise, no fevers, no chest pain, no palpitations, no lightheadedness, no dizziness, no falls. She denies a personal family history of cancers. Her BMI is 14.2. Review of Systems Const: Denies: fever(s) Eyes: Denies: change in vision Card: Denies: chest pain Resp: Denies: dyspnea Medications/Allergies Home Medications Medication Instructions Recorded Confirmed Last Taken Type fluoxetine 20 mg capsule (Prozac) 40 mg PO DAILY 10/27/19 08/10/23 08/07/23 History topiramate 50 mg tablet (Topamax) 50 mg PO BID 10/27/19 08/10/23 08/07/23 History pantoprazole 40 mg tablet,delayed 40 mg PO BID 10/28/19 08/10/23 08/07/23 History release (Protonix) nitroglycerin 0.4 mg sublingual 0.4 mg sublingual Q5M PRN chest 01/06/20 08/10/23 Unknown Rx tablet (Nitrostat) pain #1 pkg albuterol sulfate 90 mcg/actuation 2 puff inhalation Q6H PRN 01/17/22 08/10/23 Unknown History aerosol inhaler (Ventolin HFA) Shortness Of Breath budesonide-formoterol HFA 80 1 inh inhalation BID PRN Shortness 01/17/22 08/10/23 Unknown History mcg-4.5 mcg/actuation aerosol Of Breath inhaler (Symbicort) evolocumab 140 mg/mL subcutaneous 140 mg SUBCUT Q14D #6 mL 08/20/22 08/10/23 03/09/23 08:00 Rx pen injector (Repatha SureOrlinick) lisinopril 10 mg tablet 10 mg PO DAILY #90 tabs 08/20/22 08/10/23 08/07/23 Rx metoprolol tartrate 50 mg tablet 50 mg PO BID 3 months #180 tabs 08/20/22 08/10/23 08/07/23 Rx potassium chloride 20 mEq 20 meq PO DAILY #90 tabs 12/09/22 08/10/23 08/07/23 Rx tablet,extended release(part/cryst) (Klor-Con M) multivitamin-ferrous 1 tab PO DAILY 03/17/23 08/10/23 08/07/23 History fumarate-folic acid 18 mg-400 mcg tablet (Centrum Women) clopidogrel 75 mg tablet (Plavix) 75 mg PO QAM 08/10/23 08/10/23 08/07/23 History oxycodone 10 mg tablet See Rx Instructions .Route .COMPLEX 08/10/23 08/10/23 Unknown History Allergies Allergy/AdvReac Type Severity Reaction Status Date / Time morphine Allergy ADR-Halluci Verified 03/25/23 09:08 nating Tidpvtc-RRT-SmW Reductase Allergy muscle Verified 03/25/23 09:08 Inhibitor cramps [Nsgpnuq-Ezx-Ncx Reductase Inhibitor] cortisone AdvReac LOOPY Verified 03/25/23 09:08 gabapentin AdvReac HEADACHE Verified 03/25/23 09:08 prednisone AdvReac HYPERTENSION Verified 03/25/23 09:08 AND DIZZINESS tramadol AdvReac HEADACHE Verified 03/25/23 09:08 PFSH Acute PFSH: Medical History 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 Chronic right hip pain Encounter for long-term opiate analgesic use Long-term use of high-risk medication continue to monitor use of medication Risk for falls Smoker Counselled regarding smoking cessation Surgical History S/P laparotomy EXPLORATORY AGE 30YRS S/P partial hysterectomy 30 YEARS OLD S/P tubal ligation 1981 Family History Grandmother Diabetes CAD (coronary artery disease) Father Cancer LEUKEMIA Family/Other Cancer COUSIN - LYMPHOMA CAD (coronary artery disease) UNCLE AND AUNT Diabetes Mother Suicide Denies family history of Clotting disorder Dementia Chronic kidney disease (CKD) Anesthesia complication Bleeding disorder Lung disease Stroke Social History Smoking and tobacco/nicotine status: current every day tobacco/nicotine user cigarettes Packs smoked per day: 0.5 Alcohol intake: never Substance/Drug Use: never Vitals/I&O/Wt Last Vital Signs Temp 98.2 F 08/10/23 13:21 Pulse 92 08/10/23 16:30 Resp 19 H 08/10/23 16:30 BP 95/71 08/10/23 16:30 Pulse Ox 99 08/10/23 16:30 08/10/23 08/10/23 08/10/23 06:59 14:59 22:59 Intake Total 1050 / 1050 Balance 1050 / 1050 Weight last 48 hrs Weight 36.287 kg Physical Exam Const: COMMON NORMALS: no acute distress and patient oriented x3 HENMT: COMMON NORMALS: normocephalic and Normal external nose present Eye: COMMON NORMALS: Equal, round and reactive pupils present, EOMs intact bilaterally, conjunctivae normal and no scleral icterus CONJUNCTIVA: Yes conjunctivae normal PUPIL: Yes Equal, round and reactive pupils present Neck/C-Spine: COMMON NORMALS: full ROM, no lymphadenopathy, no meningeal signs, Thyroid normal and No carotid bruits Lymph: LYMPHATIC: no lymphadenopathy noted Chest: COMMONS NORMALS: normal inspection of the chest Resp: COMMON NORMALS: normal respiratory effort, No retractions, No use of accessory muscles and clear to auscultation bilaterally AUSCULTATION: clear to auscultation bilaterally Cardio: COMMON NORMALS: regular rate, regular rhythm, S1 normal heart sound present, S2 normal heart sound present, No murmurs present (Cardio) and Peripheral pulses 2+ throughout RATE: regular rate RHYTHM: regular rhythm HEART SOUNDS: S1 normal heart sound present and S2 normal heart sound present PERIPHERAL PULSES: Peripheral pulses 2+ throughout GI: COMMON NORMALS: Normal to inspection, nondistended, normoactive bowel sounds present, Soft to palpation and non-tender PALPATION: Yes No hepatosplenomegaly present : BLADDER/KIDNEY EXAM: Yes no CVA tenderness Back/Pelvis: COMMON NORMALS: no CVA tenderness Extremity: COMMON NORMALS: no calf tenderness and no pedal edema Neuro: COMMON NORMALS: patient oriented x3, CN's II-XII intact bilaterally, moves all extremities, no focal motor deficits and no sensory deficits noted MENINGEAL SIGNS: Yes no meningeal signs Psych: COMMON NORMALS: mental status grossly normal, Normal thought process present, cooperative and speech normal APPEARANCE: Yes well kempt SPEECH: Yes normal speech THOUGHT PROCESS: Normal thought process present Skin: COMMON NORMALS: turgor normal and no jaundice GENERAL SKIN EXAM: turgor normal Data 08/10/23 12:50 08/10/23 12:50 Micro: Microbiology 08/10/23 15:21 Blood Culture - Preliminary Blood SPECIMEN COLLECTED 08/10/23 15:21 Blood Culture - Preliminary Blood SPECIMEN COLLECTED A&P Assessment and plan (1) Pancreatitis: (2) Acute kidney injury: (3) Hypokalemia: (4) Hypotension: (5) Benign essential HTN: (6) Anorexia: (7) Protein calorie malnutrition: (8) Muscle wasting: Plan Acute pancreatitis -No significant radiographic evidence of pancreatitis -Lipase is elevated at 1178 -Could be associate with nausea, vomiting, patient's weight loss -Plan -Clear liquids for now -IV hydration -Monitor lipase -Serial abdominal exams Acute kidney injury ? IV fluids Uremia, second dehydration, IV fluids Elevated lactic acid, likely second dehydration, IV fluids Hypomagnesemia, will replace IV Hypokalemia, receiving IV replacement Severe protein calorie malnutrition, anorexia, protein calorie malnutrition, physical deconditioning, muscle wasting, PT OT, dietary eval, speech therapy eval NSTEMI ? With history of CAD ? No complaints of chest pain ? Cardiac echo ? Continue Plavix ? Has allergy to statin ? Heparin drip ? Order venous ultrasound, CT of the chest negative for PE Monitor for refeeding syndrome Goals of care discussion, DNR/DNI Heparin drip for DVT prophylaxis Attestations Medical Necessity Statement*: Patient requires hospitalization due to anorexia, hypokalemia, uremia, dehydration, pancreatitis, NSTEMI, inpatient, greater than 2 midnights Diagnoses Pancreatitis K85.90 Acute kidney injury N17.9 Hypokalemia E87.6 Hypotension I95.9 Benign essential HTN I10 Anorexia R63.0 Protein calorie malnutrition E46 Muscle wasting M62.50
[2023-08-10 17:32] LABS: Magnesium 1.5 mg/dL (1.7-2.3); Phosphorus 3.1 mg/dL (2.5-4.5)
[2023-08-10 19:28] LABS: Troponin 5 6HR 159.6 ng/L (0-10)
[2023-08-10 19:59] LABS: Free T4 Free Thyroxine 1.84 ng/dL (0.82-1.77); T3 Free 2.1 PG/ML (2.0-4.4)
--- NOTE | 2023-08-10 20:38 | ECG_ITS ---
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 Measurements Intervals [place] Rate: 87 P: -9 NM: 133 QRS: 58 QRSD: 78 T: 73 QT: 402 QTc: 486 Interpretive Statements SINUS RHYTHM LOW QRS VOLTAGE IN PRECORDIAL LEADS [QRS DEFLECTION < 1.0 mV IN CHEST LEADS] Compared to ECG 08/10/2023 16:52:32 Low QRS voltage now present Electronically Signed On 08-10-2023 21:19:56 CDT by Marisol Garcia M.D. [id number]
[2023-08-10 20:58] LABS: Chol HDL Ratio 2.24 mg/dL (0.0-4.40); Cholesterol 85 mg/dL (0-200); HDL Cholesterol 38 mg/dL (60-100); LDL Cholesterol Calculated 23 mg/dL (50-129); LDL HDL Ratio 0.61 RATIO (0.00-3.22); Thyroid Stimulating Hormone 1.13 uIU/mL (0.27-4.20); Triglycerides 122 mg/dL (0-150)
[2023-08-10 21:04] LABS: Ammonia 11 umol/L (11-51)
[2023-08-10] MEDS: magnesium sulfate premix 2 GM/50 ML PIGGYBACK IV (21:21)
[2023-08-10] MEDS: sodium chloride 0.9% 1,000 ML 125 ML IV (21:21)
[2023-08-10] MEDS: pantoprazole DR 40 mg Tablet PO (21:26)
[2023-08-10] MEDS: HYDROcodone-acetaminophen 5-325 mg Tablet 1 TAB PO (21:26)
[2023-08-10] MEDS: ondansetron 2 mg/ML SDV 2 mL 4 MG IVP (21:26)
[2023-08-10 21:44] LABS: Estmated Average Glucose 105; Hemoglobin A1C 5.3 % (4.0-6.0)
[2023-08-10] MEDS: heparin 5,000 unit/mL INJ 1 mL IV (21:44)
[2023-08-10] MEDS: heparin drip 25,000 UNIT/500 ML PREMIX 12 UNIT IV (21:45)
[2023-08-10 22:13] LABS: Partial Thromboplastin Time 30.7 SECONDS (23.9-36.7)
[2023-08-11] VITALS (10 sets, daily range): BP systolic 80–113; BP diastolic 52–75; PULSE 70–99; RESP 17–22; TEMP 36.2–36.8; O2SAT 98–100
[2023-08-11 04:29] LABS: Eosinophils # 0.1 10^3/uL (0.0-0.8); Eosinophils % 0.8 %; Hematocrit 26.1 % (36-47); Lymphocytes # 0.8 10^3/uL (0.8-4.8); Lymphocytes % 8.7 %; Mean Corpuscular HGB Conc 33.3 g/dL (30-55); Mean Corpuscular Hemoglobin 30.7 pg (27-33); Mean Corpuscular Volume 92.2 fl (85-98); Mean Platelet Volume 12.1 fL (7.4-10.4); Monocytes # 0.6 10^3/uL (0.2-0.9); Monocytes % 6.2 %; Neutrophils % 83.7 %; Nucleated Red Blood Cells % 0 %; Platelet Count 180 10^3/cmm (157-399); Red Blood Count 2.83 10^6/uL (3.85-5.65); Red Cell Distribution Width 11.9 % (12.1-15.1); White Blood Count 8.84 10^3/uL (3.29-11.43)
[2023-08-11 04:43] LABS: Alanine Aminotransferase 11 U/L (0-33); Albumin Level 2.9 g/dL (3.5-5.2); Alkaline Phosphatase 75 U/L (35-105); Anion Gap 14.3 (5-19); Aspartate Amino Transferase 17 U/L (0-32); Blood Urea Nitrogen 73 mg/dL (8-23); Carbon Dioxide 13 mmol/L (22-29); Chloride 113 mmol/L (98-107); Globulin 2.3 g/dL (1.3-4.6); Glomerular Filtration Rate 32.3 mL/min (90-130); Glucose 109 mg/dL (65-115); Osmolality Calculated 304 mOsm/kg (285-295); Phosphorus 2.3 mg/dL (2.5-4.5); Potassium 4.3 mmol/L (3.5-5.1); Sodium 136 mmol/L (136-145); Total Bilirubin 0.2 mg/dL (0.15-1.2); Total Protein 5.2 g/dL (6.6-8.7)
[2023-08-11 04:47] LABS: Partial Thromboplastin Time 77.1 SECONDS (23.9-36.7)
[2023-08-11 04:54] LABS: Lipase 717 U/L (13-60)
[2023-08-11] MEDS: sodium chloride 0.9% 1,000 ML 125 ML IV ×3 (05:38→21:49)
--- NOTE | 2023-08-11 08:32 | PC.CHAP ---
Pastoral Care Encounter/Spiritual Assessment Type of Contact [] Declined group managing director visit [] Patient/Family/Request visit [] Outpatient visit [] Follow-up visit [] Physician referral [] Code/Alert [] Routine visit [] Staff referral [] Actively dying [] Patient sleeping [] Family support [] [] Out of room [] Palliative care [] [] Receiving care in room [] Pre-surgical visit [] Trauma [] Long length of stay [] ICU visit [x] Other: Contact precautions. Relational/Emotional Strength [] Patient feels connected with others/family/visitors/staff [] Distress [] Loneliness/isolation [] Abandonment Spirituality of Patient [] Person of Li [] Attends Holiness of their Li [] Believes in Prayer [] Reads Bible or Moravian materials [] There are Spiritual issues to be addressed Senior Budget Analyst Interventions [] Prayer [] Active listening [] Non-anxious presence [] Spiritual/emotional support [] Crisis/trauma care [] Spiritual counseling [] Bereavement support [] Provided bereavement packet [] Provided Bible/devotional materials [] Provided toy/stuffed animal, coloring book to patient or family member [] Provided Communion [] Anointing/[place] [] Salvation [] Completed spiritual assessment [] Other: Impact on Illness or Injury [] Angry [] Fearful [] Anxious [] Often cries [] Exhaustion [] Unable to work [] Unable to attend gnosticist [] Unable to walk/stand [] Unable to read [] Unable to drive [] Unable to eat/drink [] Unable to sleep [] Unable to be with family [] Patient intubated [] Other: Summary Time spent with patient
[2023-08-11 09:07] LABS: Ferritin 401 ng/mL (15-150)
[2023-08-11] MEDS: topiramate 25 mg Tablet 50 MG PO ×2 (10:19→17:08)
[2023-08-11] MEDS: fluoxetine 20 mg Capsule 40 MG PO (10:20)
[2023-08-11] MEDS: pantoprazole DR 40 mg Tablet PO ×2 (10:20→17:08)
[2023-08-11] MEDS: clopidogrel 75 mg Tablet PO (10:21)
[2023-08-11 11:13] LABS: Basophils % 0.2 %; Eosinophils # 0.2 10^3/uL (0.0-0.8); Eosinophils % 1.6 %; Hematocrit 26.9 % (36-47); Lymphocytes # 1.6 10^3/uL (0.8-4.8); Lymphocytes % 12.9 %; Mean Corpuscular HGB Conc 33.5 g/dL (30-55); Mean Corpuscular Hemoglobin 31.4 pg (27-33); Mean Corpuscular Volume 93.7 fl (85-98); Mean Platelet Volume 12.1 fL (7.4-10.4); Monocytes % 7.7 %; Neutrophils # 9.78 10^3/uL (1.8-7.7); Nucleated Red Blood Cells % 0 %; Platelet Count 164 10^3/cmm (157-399); Red Blood Count 2.87 10^6/uL (3.85-5.65); Red Cell Distribution Width 12.2 % (12.1-15.1)
[2023-08-11 11:21] LABS: Erythrocyte Sedimentation Rate 9 mm/hr (0-15)
[2023-08-11] MEDS: metoclopramide 5 mg/mL SDV 2 mL IVP (11:28)
[2023-08-11 11:31] LABS: Partial Thromboplastin Time 36.3 SECONDS (23.9-36.7)
[2023-08-11 11:49] LABS: HIV 1 & 2 Antigen Non-Reactive (Non-Reactiv)
[2023-08-11 11:50] LABS: HIV 1 & 2 Antibody Non-Reactive (Non-Reactiv); Hepatitis A Antibody IgM Non-Reactive (Nonreactive); Hepatitis B Core IgM Non-Reactive (Nonreactive); Hepatitis B Surface Antigen Non-Reactive (Nonreactive); Hepatitis C Virus Antibody Non-Reactive (Nonreactive)
[2023-08-11] MEDS: heparin 5,000 unit/mL INJ 1 mL IV (12:28)
--- NOTE | 2023-08-11 17:53 | P.PN_ITS ---
Subjective Subjective: Patient was seen this morning she reports that she is hungry, but whenever she eats, her stomach becomes very bloated, if she feels sick, her stomach hurts her, no bloody or black stools, we discussed the possibility of mesenteric ischemia, or possible gastroparesis as an etiology, performed CT chest abdomen pelvis yesterday, reviewed scan with radiologist today, no significant radiographic evidence of mesenteric ischemia, no significant arthrosclerosis of celiac axis or mesenteric arteries, ordered GLORIA, HIV panel negative, hep panel negative, plan on gastric emptying study, patient was also found to have anemia overnight, is on a heparin drip for NSTEMI, will hold heparin drip, monitor h emoglobin, venous ultrasound negative for DVT, echocardiogram normal EF no significant wall motion abnormalities, will advance diet as tolerated, consult dietary, speech Vitals/I&O/Wt Last Vital Signs Temp 97.5 F L 08/11/23 16:00 Pulse 81 08/11/23 16:00 Resp 22 H 08/11/23 16:00 BP 80/52 08/11/23 16:00 Pulse Ox 98 08/11/23 16:00 O2 Del Method Room Air 08/11/23 16:00 08/11/23 08/11/23 08/11/23 06:59 14:59 22:59 Intake Total 1186.6 / 4475.21 1959 601.917 / 2561.917 Output Total 1000 / 1000 Balance 186.6 / 3475.21 1959 601.917 / 2561.917 Weight last 48 hrs Weight 42.91 kg Weight 36.287 kg Physical Exam Const: COMMON NORMALS: no acute distress and patient oriented x3 Resp: COMMON NORMALS: normal respiratory effort, No retractions, No use of accessory muscles and clear to auscultation bilaterally AUSCULTATION: clear to auscultation bilaterally Cardio: COMMON NORMALS: regular rate, regular rhythm, S1 normal heart sound present and S2 normal heart sound present RATE: regular rate RHYTHM: regular rhythm HEART SOUNDS: S1 normal heart sound present and S2 normal heart sound present GI: COMMON NORMALS: Normal to inspection, nondistended, normoactive bowel sounds present and non-tender Extremity: COMMON NORMALS: no pedal edema Neuro: COMMON NORMALS: patient oriented x3 Psych: COMMON NORMALS: mental status grossly normal Data 08/11/23 10:58 08/11/23 04:21 Micro: Microbiology 08/10/23 12:09 Stool Lactoferrin - Final Stool Occult Blood (FIT) - Final 08/10/23 15:21 Blood Culture - Preliminary Blood NEGATIVE TO DATE 08/10/23 15:21 Blood Culture - Preliminary Blood NEGATIVE TO DATE A&P Assessment and plan (1) Pancreatitis: (2) Acute kidney injury: (3) Hypokalemia: (4) Hypotension: (5) Benign essential HTN: (6) Anorexia: (7) Protein calorie malnutrition: (8) Muscle wasting: Plan Acute pancreatitis -No significant radiographic evidence of pancreatitis -Lipase is elevated at 1178 -Could be associate with nausea, vomiting, patient's weight loss -Plan -Advance to full liquid diet -IV hydration -Monitor lipase -Serial abdominal exams Weight loss associated with recurrent abdominal pain, abdominal distention, associated with feeding, adequate appetite reported -CT chest abdomen pelvis did not show any significant radiographic evidence of mesenteric ischemia or arthrosclerosis, -The other thought is this could be gastroparesis, issues with gastric emptying, we will order gastric emptying scan -GLORIA ordered -HIV negative, hep C negative, ESR within normal limits Acute kidney injury ? IV fluids Uremia, second dehydration, IV fluids Elevated lactic acid, likely second dehydration, IV fluids Hypomagnesemia, will replace IV Hypokalemia, receiving IV replacement Severe protein calorie malnutrition, anorexia, protein calorie malnutrition, physical deconditioning, muscle wasting, PT OT, dietary eval, speech therapy eval NSTEMI ? With history of CAD ? No complaints of chest pain ? Cardiac echo CONCLUSIONS ?LV systolic function is normal with EF of 55-60% ?Grade 1 diastolic dysfunction ?Mild tricuspid regurgitation ?Compared to prior echocardiogram from 2016, no significant ?changes are seen ? Continue Plavix ? Has allergy to statin ? Heparin drip currently on hold due to anemia ?venous ultrasound negative for DVT, CT of the chest negative for PE Anemia, monitor Monitor for refeeding syndrome Goals of care discussion, DNR/DNI Heparin drip for DVT prophylaxis Patient was seen this morning she reports that she is hungry, but whenever she eats, her stomach becomes very bloated, if she feels sick, her stomach hurts her, no bloody or black stools, we discussed the possibility of mesenteric ischemia, or possible gastroparesis as an etiology, performed CT chest abdomen pelvis yesterday, reviewed scan with radiologist today, no significant radiographic evidence of mesenteric ischemia, no significant arthrosclerosis of celiac axis or mesenteric arteries, ordered GLORIA, HIV panel negative, hep panel negative, plan on gastric emptying study, patient was also found to have anemia overnight, is on a heparin drip for NSTEMI, will hold heparin drip, monitor hem oglobin, venous ultrasound negative for DVT, echocardiogram normal EF no significant wall motion abnormalities, will advance diet as tolerated, consult dietary, speech Attestations Medical Necessity Statement*: Patient requires hospitalization due to pancreatitis, severe protein calorie malnutrition, anorexia, physical deconditioning, uremia, MICHEAL, weight loss Diagnoses Pancreatitis K85.90 Acute kidney injury N17.9 Hypokalemia E87.6 Hypotension I95.9 Benign essential HTN I10 Anorexia R63.0 Protein calorie malnutrition E46 Muscle wasting M62.50
[2023-08-11 18:53] LABS: Partial Thromboplastin Time 55.8 SECONDS (23.9-36.7)
[2023-08-11 19:02] LABS: Folate Level > 20.0 ng/mL (4.8-37.3)
[2023-08-11 19:40] LABS: Vitamin B12 1569 pg/mL (232-1245)
[2023-08-12] VITALS (9 sets, daily range): BP systolic 87–111; BP diastolic 51–73; PULSE 56–97; RESP 15–19; TEMP 36.4–36.8; O2SAT 95–100
[2023-08-12] MEDS: simethicone 40 mg/0.6 mL Bottle 30mL PO (02:15)
--- NOTE | 2023-08-12 02:22 | PC.NURSE ---
Patient states my stomach hurts and I think it is gas from those beans I ate. Patient asking for something for gas. Dr. Stone notified.
[2023-08-12 05:43] LABS: Basophils % 0.1 %; Eosinophils # 0.3 10^3/uL (0.0-0.8); Eosinophils % 2.8 %; Hematocrit 23.2 % (36-47); Lymphocytes # 1.9 10^3/uL (0.8-4.8); Mean Corpuscular HGB Conc 33.2 g/dL (30-55); Mean Corpuscular Hemoglobin 31.2 pg (27-33); Mean Corpuscular Volume 93.9 fl (85-98); Mean Platelet Volume 12.3 fL (7.4-10.4); Monocytes # 0.9 10^3/uL (0.2-0.9); Monocytes % 9.1 %; Neutrophils # 6.34 10^3/uL (1.8-7.7); Neutrophils % 67.5 %; Nucleated Red Blood Cells % 0 %; Platelet Count 145 10^3/cmm (157-399); Red Blood Count 2.47 10^6/uL (3.85-5.65); Red Cell Distribution Width 12.3 % (12.1-15.1); White Blood Count 9.39 10^3/uL (3.29-11.43)
[2023-08-12 06:07] LABS: Alanine Aminotransferase 9 U/L (0-33); Albumin Level 2.4 g/dL (3.5-5.2); Alkaline Phosphatase 66 U/L (35-105); Aspartate Amino Transferase 13 U/L (0-32); Blood Urea Nitrogen 31 mg/dL (8-23); Calcium 7.6 mg/dL (8.5-10.5); Carbon Dioxide 12 mmol/L (22-29); Chloride 119 mmol/L (98-107); Glomerular Filtration Rate 49.8 mL/min (90-130); Glucose 98 mg/dL (65-115); Magnesium 1.3 mg/dL (1.7-2.3); Osmolality Calculated 299 mOsm/kg (285-295); Phosphorus 1.7 mg/dL (2.5-4.5); Sodium 141 mmol/L (136-145); Total Bilirubin 0.2 mg/dL (0.15-1.2); Total Protein 4.4 g/dL (6.6-8.7)
[2023-08-12 06:18] LABS: Lipase 597 U/L (13-60)
--- NOTE | 2023-08-12 08:00 | NM_ITS ---
WS: [id number] NUCLEAR MEDICINE GASTRIC STUDY CLINICAL INFORMATION: weight loss, anorexia, bloating TECHNIQUE: Following oral ingestion of cooked egg mixed with 1.05 mCi technetium 99m sulfur colloid, anterior images of the stomach were obtained over the course of 90 minutes. Activity curve was perfor med over the course of 90 minutes with linear regression analysis. COMPARISON: None. FINDINGS: Oral ingestion of cooked egg mixture. T1 half emptying 155 minutes compatible with delayed gastric emptying Only 12% emptying at 60 minutes 36% emptying at 120 minutes IMPRESSION: Delayed gastric emptying *Normal median T1 half 90 minutes for solid egg meal (45-110 minutes). Delayed gastric retention is defined as 90% retained at 1 hour, 60% at 2 hours, 30% at 3 hours, and 10% at 4 hours (normal percent gastric retention is 37-90% at 1 hour, 30-60% at 2 hours, and 0-10% a t 4 hours).
[2023-08-12] MEDS: multivitamin therapeutic Tablet 1 TAB PO (11:43)
[2023-08-12] MEDS: fluoxetine 20 mg Capsule 40 MG PO (11:43)
[2023-08-12] MEDS: clopidogrel 75 mg Tablet PO (11:43)
[2023-08-12] MEDS: pantoprazole DR 40 mg Tablet PO ×2 (11:43→18:43)
[2023-08-12] MEDS: potassium phosphate (mEq K) 40 MEQ in sodium chloride 0.9% (100 ml) 100 ML 27.27 MEQ IV (11:43)
[2023-08-12] MEDS: magnesium sulfate premix 4 GM/100 ML PREMIX IV (11:43)
[2023-08-12] MEDS: topiramate 25 mg Tablet 50 MG PO ×2 (11:43→18:43)
[2023-08-12] MEDS: sodium chloride 0.9% 1,000 ML 125 ML IV (11:44)
[2023-08-12] MEDS: flu vacc pf 2023-24 (6 mos+) 60 MCG IM (11:52)
[2023-08-12] MEDS: pneumococcal (23 valent) SDV 0.5 mL IM (11:56)
--- NOTE | 2023-08-12 11:57 | PC.SOCIAL ---
IMM Update pg 2 of IMM updated and reviewed w/ patient. Copy provided and copy dated, initialed and placed in chart.
[2023-08-12 12:10] LABS: Glucose Point of Care 105 mg/dL (70-110)
[2023-08-12 13:34] LABS: COMPLEMENT, TOTAL (CH50) >60 U/mL (31-60)
[2023-08-12 14:55] LABS: ANA SCREEN, IFA NEGATIVE (NEGATIVE)
[2023-08-12 15:04] LABS: CENTROMERE B ANTIBODY <1.0 NEG AI (<1.0 NEG); JO-1 ANTIBODY <1.0 NEG AI (<1.0 NEG); RNP ANTIBODY <1.0 NEG AI (<1.0 NEG); SCL-70 ANTIBODY <1.0 NEG AI (<1.0 NEG); SJOGREN'S ANTIBODY (SS-A) <1.0 NEG AI (<1.0 NEG); SM ANTIBODY <1.0 NEG AI (<1.0 NEG); SS-B <1.0 NEG AI (<1.0 NEG)
--- NOTE | 2023-08-12 15:07 | PM.PN ---
Subjective Subjective: Patient was seen this morning, she is in the nuc med, getting her gastric emptying study, she tells me that she had a good night she feels better, but continues to have a lot of bloating, belching, feeling very full, even after eating small meals, she tells me the simethicone has not really helped, she does report a good appetite she wants to eat, but everything that she eats makes her full very easily, makes her feel bloated, stomach hurts her Vitals/I&O/Wt Last Vital Signs Temp 98.0 F 08/12/23 13:14 Pulse 56 L 08/12/23 13:14 Resp 19 H 08/12/23 13:14 BP 101/71 08/12/23 13:14 Pulse Ox 98 08/12/23 13:14 O2 Del Method Room Air 08/12/23 13:14 08/12/23 08/12/23 08/12/23 06:59 14:59 22:59 Intake Total 25 / 3583.650 1439.583 / 1439.583 Output Total 500 / 500 Balance -475 / 3083.650 1439.583 / 1439.583 Weight last 48 hrs Weight 42.91 kg Physical Exam Const: COMMON NORMALS: no acute distress and patient oriented x3 Resp: COMMON NORMALS: normal respiratory effort, No retractions, No use of accessory muscles and clear to auscultation bilaterally AUSCULTATION: clear to auscultation bilaterally Cardio: COMMON NORMALS: regular rate, regular rhythm, S1 normal heart sound present and S2 normal heart sound present RATE: regular rate RHYTHM: regular rhythm HEART SOUNDS: S1 normal heart sound present and S2 normal heart sound present GI: COMMON NORMALS: Normal to inspection, nondistended, normoactive bowel sounds present and non-tender Extremity: COMMON NORMALS: no pedal edema Neuro: COMMON NORMALS: patient oriented x3 Psych: COMMON NORMALS: mental status grossly normal Data 08/12/23 05:26 08/12/23 05:26 Micro: Microbiology 08/10/23 12:09 Stool Lactoferrin - Final Stool Occult Blood (FIT) - Final 08/10/23 15:21 Blood Culture - Preliminary Blood NEGATIVE TO DATE 08/10/23 15:21 Blood Culture - Preliminary Blood NEGATIVE TO DATE A&P Assessment and plan (1) Pancreatitis: (2) Acute kidney injury: (3) Hypokalemia: (4) Hypotension: (5) Benign essential HTN: (6) Anorexia: (7) Protein calorie malnutrition: (8) Muscle wasting: (9) Anemia: Plan Acute pancreatitis, -No significant radiographic evidence of pancreatitis -Lipase is elevated at 1178 -Could be associate with nausea, vomiting, patient's weight loss -Plan -Advance to GI soft diet -IV hydration -Monitor lipase -Serial abdominal exams Weight loss associated with recurrent abdominal pain, abdominal distention, associated with feeding, adequate appetite reported -CT chest abdomen pelvis did not show any significant radiographic evidence of mesenteric ischemia or arthrosclerosis, -The other thought is this could be gastroparesis, issues with gastric emptying, we will order gastric emptying scan -GLORIA ordered -HIV negative, hep C negative, ESR within normal limits -Patient does have evidence of muscle wasting, I am wondering if she has components of neurodegenerative disorder such as ALS, we will have her follow-up with neurology -She does report that she she wants to eat, she has a good appetite, no history of body dysmorphia or feeling down depressed or sad, I doubt that it is psychiatric disorder, Acute kidney injury ? IV fluids Uremia, second dehydration, IV fluids Elevated lactic acid, likely second dehydration, IV fluids Hypomagnesemia, will replace IV Hypokalemia, receiving IV replacement Severe protein calorie malnutrition, anorexia, protein calorie malnutrition, physical deconditioning, muscle wasting, PT OT, dietary eval, speech therapy eval NSTEMI ? With history of CAD ? No complaints of chest pain ? Cardiac echo CONCLUSIONS ?LV systolic function is normal with EF of 55-60% ?Grade 1 diastolic dysfunction ?Mild tricuspid regurgitation ?Compared to prior echocardiogram from 2016, no significant ?changes are seen ? Continue Plavix ? Has allergy to statin ? Heparin drip currently on hold due to anemia ?venous ultrasound negative for DVT, CT of the chest negative for PE Anemia, heme lobe and down to 7.7, will monitor repeat CBC in the afternoon Monitor for refeeding syndrome Goals of care discussion, DNR/DNI scd for DVT prophylaxis Attestations Medical Necessity Statement*: Patient requires hospitalization patient for acute pancreatitis, weight loss, NSTEMI, anemia Diagnoses Pancreatitis K85.90 Acute kidney injury N17.9 Hypokalemia E87.6 Hypotension I95.9 Benign essential HTN I10 Anorexia R63.0 Protein calorie malnutrition E46 Muscle wasting M62.50 Anemia D64.9
[2023-08-12 16:04] LABS: Clostridium Difficile PCR NOT DETECTED (NOT DETECTED)
[2023-08-12 16:09] LABS: COMPLEMENT COMPONENT C3C 108 mg/dL (83-193); COMPLEMENT COMPONENT C4C 42 mg/dL (15-57)
--- NOTE | 2023-08-12 17:02 | PC.OT ---
OT TREATMENT ATTEMPTED. PATIENT SITTING EOB AND L ARM IV LEAKING. STATES THAT SHE WOULD LIKE THIS FIXED AND TO EAT HER DINNER TRAY. AGREEABLE TO O.T. TO ATTEMPT TREATMENT TOMORROW.
[2023-08-12 18:28] LABS: Hematocrit 26.9 % (36-47)
[2023-08-12] MEDS: metoclopramide 10 mg Tablet 5 MG PO ×2 (18:43→20:36)
[2023-08-13] VITALS (11 sets, daily range): BP systolic 92–110; BP diastolic 58–70; PULSE 70–98; RESP 15–16; TEMP 36.5–37.1; O2SAT 96–100
[2023-08-13] MEDS: HYDROcodone-acetaminophen 5-325 mg Tablet 1 TAB PO ×2 (00:26→08:56)
[2023-08-13] MEDS: sodium chloride 0.9% 1,000 ML 75 ML IV ×2 (02:12→16:39)
[2023-08-13 05:51] LABS: Basophils % 0.3 %; Eosinophils # 0.2 10^3/uL (0.0-0.8); Eosinophils % 2.9 %; Hematocrit 22.4 % (36-47); Lymphocytes # 2.3 10^3/uL (0.8-4.8); Mean Corpuscular HGB Conc 33.9 g/dL (30-55); Mean Corpuscular Hemoglobin 31.4 pg (27-33); Mean Corpuscular Volume 92.6 fl (85-98); Mean Platelet Volume 11.9 fL (7.4-10.4); Monocytes # 0.6 10^3/uL (0.2-0.9); Monocytes % 8.1 %; Neutrophils # 4.66 10^3/uL (1.8-7.7); Neutrophils % 59.1 %; Nucleated Red Blood Cells % 0 %; Platelet Count 192 10^3/cmm (157-399); Red Blood Count 2.42 10^6/uL (3.85-5.65); Red Cell Distribution Width 12.5 % (12.1-15.1); White Blood Count 7.89 10^3/uL (3.29-11.43)
[2023-08-13 06:11] LABS: Alanine Aminotransferase 10 U/L (0-33); Albumin Level 2.4 g/dL (3.5-5.2); Alkaline Phosphatase 72 U/L (35-105); Anion Gap 12.1 (5-19); Aspartate Amino Transferase 12 U/L (0-32); Blood Urea Nitrogen 20 mg/dL (8-23); Calcium 7.9 mg/dL (8.5-10.5); Carbon Dioxide 13 mmol/L (22-29); Chloride 119 mmol/L (98-107); Glomerular Filtration Rate 45.1 mL/min (90-130); Glucose 97 mg/dL (65-115); Magnesium 1.9 mg/dL (1.7-2.3); Osmolality Calculated 295 mOsm/kg (285-295); Phosphorus 2.8 mg/dL (2.5-4.5); Potassium 3.1 mmol/L (3.5-5.1); Sodium 141 mmol/L (136-145); Total Bilirubin 0.2 mg/dL (0.15-1.2); Total Protein 4.4 g/dL (6.6-8.7)
[2023-08-13 06:20] LABS: Lipase 480 U/L (13-60)
[2023-08-13 07:44] LABS: THYROID PEROXIDASE ANTIBODIES <1 IU/mL (<9)
[2023-08-13] MEDS: topiramate 25 mg Tablet 50 MG PO ×2 (08:52→17:08)
[2023-08-13] MEDS: clopidogrel 75 mg Tablet PO (08:52)
[2023-08-13] MEDS: metoclopramide 10 mg Tablet 5 MG PO ×3 (08:52→20:32)
[2023-08-13] MEDS: multivitamin therapeutic Tablet 1 TAB PO (08:53)
[2023-08-13] MEDS: fluoxetine 20 mg Capsule 40 MG PO (08:53)
[2023-08-13] MEDS: sucralfate 1 gm Tablet PO ×2 (08:56→20:32)
[2023-08-13] MEDS: pantoprazole 40 mg SDV IVP ×2 (09:31→20:37)
[2023-08-13] MEDS: lidocaine 1% 5 ML in potassium chloride premix 100 ML 26.25 ML IV (10:13)
[2023-08-13] MEDS: ciprofloxacin 500 mg Tablet PO ×2 (10:34→20:32)
--- NOTE | 2023-08-13 17:02 | P.PN_ITS ---
Subjective Subjective: Patient was seen this morning, she continues to complain of fatigue, malaise, bloating, she tells me that the Reglan has helped to some degree, denies bloody or black stools, Vitals/I&O/Wt Last Vital Signs Temp 98.2 F 08/13/23 13:50 Pulse 83 08/13/23 13:50 Resp 16 08/13/23 13:50 BP 96/63 08/13/23 13:50 Pulse Ox 98 08/13/23 13:50 O2 Del Method Room Air 08/13/23 03:27 08/13/23 08/13/23 08/13/23 06:59 14:59 22:59 Intake Total 875.417 / 2903.5106 705 / 705 1000 / 1705 Output Total 250 / 2450 Balance 625.417 / 453.5106 705 / 705 1000 / 1705 Physical Exam Const: COMMON NORMALS: no acute distress and patient oriented x3 Resp: COMMON NORMALS: normal respiratory effort, No retractions, No use of accessory muscles and clear to auscultation bilaterally AUSCULTATION: clear to auscultation bilaterally Cardio: COMMON NORMALS: regular rate, regular rhythm, S1 normal heart sound present and S2 normal heart sound present RATE: regular rate RHYTHM: re gular rhythm HEART SOUNDS: S1 normal heart sound present and S2 normal heart sound present GI: COMMON NORMALS: Normal to inspection, nondistended, normoactive bowel sounds present and non-tender Extremity: COMMON NORMALS: no pedal edema Neuro: COMMON NORMALS: patient oriented x3 Psych: COMMON NORMALS: mental status grossly normal Data 08/13/23 17:32 08/13/23 05:41 Micro: Microbiology 08/10/23 14:48 Urine Culture - Final Urine,Clean Catch Enterococcus faecalis A&P Assessment and plan (1) Pancreatitis: (2) Acute kidney injury: (3) Hypokalemia: (4) Hypotension: (5) Benign essential HTN: (6) Anorexia: (7) Protein calorie malnutrition: (8) Muscle wasting: (9) Anemia: (10) Gastroparesis: (11) GI bleed: Plan Acute pancreatitis, -No significant radiographic evidence of pancreatitis -Lipase is elevated at 1178 -Could be associate with nausea, vomiting, patient's weight loss -Plan -Advance to GI soft diet -IV hydration -Monitor lipase -Serial abdominal exams Weight loss associated with recurrent abdominal pain, abdominal distention, associated with feeding, adequate appetite reported -Likely secondary to gastroparesis IMPRESSION: Delayed gastric emptying *Normal median T1 half 90 minutes for solid egg meal (45-110 minutes). Delayed gastric retention is defined as 90% retained at 1 hour, 60% at 2 hours, 30% at 3 hours, and 10% at 4 hours (normal percent gastric retention is 37-90% at 1 hour, 30-60% at 2 hours, and 0-10% at 4 hours). -Currently on small-volume feeds -Dietary consulted -Scheduled Reglan 5 mg 3 times daily, extensively discussed with her the risk of tardive dyskinesia, after discussing the risk and benefits, she voiced understanding, all questions answered, agreed to proceed -CT chest abdomen pelvis did not show any significant radiographic evidence of mesenteric ischemia or arthrosclerosis, -The other thought is this could be gastroparesis, issues with gastric emptying, we will order gastric emptying scan -GLORIA ordered -HIV negative, hep C negative, ESR within normal limits -Patient does have evidence of muscle wasting, I am wondering if she has components of neurodegenerative disorder such as ALS, we will have her follow-up with neurology -She does report that she she wants to eat, she has a good appetite, no history of body dysmorphia or feeling down depressed or sad, I doubt that it is psychiatric disorder, Acute kidney injury ? IV fluids Uremia, second dehydration, IV fluids Elevated lactic acid, likely second dehydration, IV fluids Hypomagnesemia, will replace IV Hypokalemia, receiving IV replacement Severe protein calorie malnutrition, anorexia, protein calorie malnutrition, physical deconditioning, muscle wasting, PT OT, dietary eval, speech therapy eval NSTEMI ? With history of CAD ? No complaints of chest pain ? Cardiac echo CONCLUSIONS ?LV systolic function is normal with EF of 55-60% ?Grade 1 diastolic dysfunction ?Mild tricuspid regurgitation ?Compared to prior echocardiogram from 2016, no significant ?changes are seen ? Continue Plavix ? Has allergy to statin ? Heparin drip currently on hold due to anemia ?venous ultrasound negative for DVT, CT of the chest negative for PE Anemia, heme lobe and down to 7.7, she does have evidence of Hemoccult positive stools, likely slow GI bleed -Stop Plavix -Lovenox on hold -Transfuse 1 unit PRBC, monitor hemoglobin -Protonix, Carafate -Monitor hemoglobin trend if it continues to downward trend, will consider EGD Monitor for refeeding syndrome Goals of care discussion, DNR/DNI scd for DVT prophylaxis Attestations Medical Necessity Statement*: Patient requires hospitalization for gastroparesis, now developing slow GI bleed, requiring transfusion, monitor hemoglobin, continues to have bloating, has hypokalemia requiring IV replacement hypomagnesemia requiring IV replacement Diagnoses Pancreatitis K85.90 Acute kidney injury N17.9 Hypokalemia E87.6 Hypotension I95.9 Benign essential HTN I10 Anorexia R63.0 Protein calorie malnutrition E46 Muscle wasting M62.50 Anemia D64.9 Gastroparesis K31.84 GI bleed K92.2
[2023-08-13] MEDS: sodium chloride 0.9% (100 ml) 100 ML 150 ML (17:09)
[2023-08-13 18:02] LABS: Hematocrit 33.1 % (36-47)
[2023-08-14] VITALS (7 sets, daily range): BP systolic 93–116; BP diastolic 54–77; PULSE 76–93; RESP 16–18; TEMP 36.3–37.1; O2SAT 97–99
[2023-08-14 02:29] LABS: Immunoglobulin A 125 mg/dL (70-320); Tissue Transglutaminase AB IGA <1.0 U/mL
[2023-08-14] MEDS: sodium chloride 0.9% 1,000 ML 75 ML IV ×2 (05:10→21:27)
[2023-08-14 05:28] LABS: Basophils % 0.4 %; Eosinophils # 0.2 10^3/uL (0.0-0.8); Eosinophils % 3.1 %; Hematocrit 28.5 % (36-47); Lymphocytes % 27.2 %; Mean Corpuscular HGB Conc 33.3 g/dL (30-55); Mean Corpuscular Hemoglobin 30.7 pg (27-33); Mean Corpuscular Volume 92.2 fl (85-98); Mean Platelet Volume 11.7 fL (7.4-10.4); Monocytes # 0.6 10^3/uL (0.2-0.9); Monocytes % 8.4 %; Neutrophils # 4.43 10^3/uL (1.8-7.7); Neutrophils % 60.5 %; Nucleated Red Blood Cells % 0 %; Platelet Count 199 10^3/cmm (157-399); Red Blood Count 3.09 10^6/uL (3.85-5.65); Red Cell Distribution Width 13.8 % (12.1-15.1); White Blood Count 7.34 10^3/uL (3.29-11.43)
[2023-08-14 05:56] LABS: Alanine Aminotransferase 10 U/L (0-33); Albumin Level 2.5 g/dL (3.5-5.2); Alkaline Phosphatase 80 U/L (35-105); Aspartate Amino Transferase 12 U/L (0-32); Blood Urea Nitrogen 13 mg/dL (8-23); Calcium 8.1 mg/dL (8.5-10.5); Carbon Dioxide 11 mmol/L (22-29); Chloride 122 mmol/L (98-107); Glomerular Filtration Rate 45.1 mL/min (90-130); Glucose 101 mg/dL (65-115); Magnesium 1.3 mg/dL (1.7-2.3); Osmolality Calculated 290 mOsm/kg (285-295); Phosphorus 1.9 mg/dL (2.5-4.5); Sodium 140 mmol/L (136-145); Total Bilirubin 0.3 mg/dL (0.15-1.2); Total Protein 4.5 g/dL (6.6-8.7)
[2023-08-14] MEDS: topiramate 25 mg Tablet 50 MG PO ×2 (08:38→18:19)
[2023-08-14] MEDS: ciprofloxacin 500 mg Tablet PO ×2 (08:38→21:36)
[2023-08-14] MEDS: pantoprazole 40 mg SDV IVP ×2 (08:38→21:26)
[2023-08-14] MEDS: sucralfate 1 gm Tablet PO ×2 (08:38→21:27)
[2023-08-14] MEDS: fluoxetine 20 mg Capsule 40 MG PO (08:39)
[2023-08-14] MEDS: metoclopramide 10 mg Tablet 5 MG PO (08:39)
[2023-08-14] MEDS: multivitamin therapeutic Tablet 1 TAB PO (08:39)
[2023-08-14] MEDS: simethicone 40 mg/0.6 mL Bottle 30mL PO ×2 (08:47→16:07)
[2023-08-14] MEDS: potassium phosphate (mEq K) 40 MEQ in sodium chloride 0.9% (100 ml) 100 ML 27.27 MEQ IV (09:26)
[2023-08-14] MEDS: magnesium sulfate premix 4 GM/100 ML PREMIX IV (09:27)
--- NOTE | 2023-08-14 10:32 | PC.SOCIAL ---
IMM Update pg 2 of IMM updated and reviewed w/ patient. Copy provided and copy in chart dated, and initialed.
--- NOTE | 2023-08-14 11:25 | P.PN_ITS ---
Subjective Subjective: This morning patient was examined, she denies any fevers, no chills, does complain of current abdominal bloating, and pain, that Reglan has helped but she continues to have bloating, no fevers, no chills, no cough, does report generalized weakness, reports persistent diarrhea, Vitals/I&O/Wt Last Vital Signs Temp 97.4 F L 08/14/23 08:00 Pulse 76 08/14/23 08:00 Resp 18 08/14/23 08:00 BP 116/76 08/14/23 08:00 Pulse Ox 99 08/14/23 08:00 O2 Del Method Room Air 08/14/23 08:00 O2 Flow Rate 98 08/13/23 16:00 08/13/23 08/14/23 08/14/23 22:59 06:59 14:59 Intake Total 1100 / 1805 938.75 / 2743.75 240 / 240 Output Total 500 / 500 300 / 800 Balance 600 / 1305 638.75 / 1943.75 240 / 240 Physical Exam Const: COMMON NORMALS: no acute distress and patient oriented x3 Resp: COMMON NORMALS: normal respiratory effort, No retractions, No use of accessory muscles and clear to auscultation bilaterally AUSCULTATION: clear to auscultation bilaterally Cardio: COMMON NORMALS: regular rate, regular rhythm, S1 normal heart sound present and S2 normal heart sound present RATE: regular rate RHYTHM: regular rhythm HEART SOUNDS: S1 normal heart sound present and S2 normal heart sound present GI: COMMON NORMALS: Normal to inspection, nondistended, normoactive bowel sounds present and non-tender Extremity: COMMON NORMALS: no pedal edema Neuro: COMMON NORMALS: patient oriented x3 Psych: COMMON NORMALS: mental status grossly normal Data 08/14/23 05:07 08/14/23 05:07 A&P Assessment and plan (1) Pancreatitis: (2) Acute kidney injury: (3) Hypokalemia: (4) Hypotension: (5) Benign essential HTN: (6) Anorexia: (7) Protein calorie malnutrition: (8) Muscle wasting: (9) Anemia: (10) Gastroparesis: (11) GI bleed: (12) Refeeding syndrome: Plan Acute pancreatitis, resolving -No significant radiographic evidence of pancreatitis -Lipase is elevated at 1178 -Could be associate with nausea, vomiting, patient's weight loss -Plan -Advance to GI soft diet -IV hydration -Monitor lipase -Serial abdominal exams Weight loss associated with recurrent abdominal pain, abdominal distention, associated with feeding, adequate appetite reported -Likely secondary to gastroparesis IMPRESSION: Delayed gastric emptying *Normal median T1 half 90 minutes for solid egg meal (45-110 minutes). Delayed gastric retention is defined as 90% retained at 1 hour, 60% at 2 hours, 30% at 3 hours, and 10% at 4 hours (normal percent gastric retention is 37-90% at 1 hour, 30-60% at 2 hours, and 0-10% at 4 hours). -Currently on small-volume feeds -Dietary consulted -Scheduled Reglan 5 mg 3 times daily, extensively discussed with her the risk of tardive dyskinesia, after discussing the risk and benefits, she voiced understanding, all questions answered, agreed to proceed -CT chest abdomen pelvis did not show any significant radiographic evidence of mesenteric ischemia or arthrosclerosis, -The other thought is this could be gastroparesis, issues with gastric emptying, we will order gastric emptying scan -GLORIA ordered -HIV negative, hep C negative, ESR within normal limits -Patient does have evidence of muscle wasting, I am wondering if she has components of neurodegenerative disorder such as ALS, we will have her follow-up with neurology -She does report that she she wants to eat, she has a good appetite, no history of body dysmorphia or feeling down depressed or sad, I doubt that it is psychiatric disorder, Acute kidney injury ? IV fluids Uremia, second dehydration, IV fluids Elevated lactic acid, likely second dehydration, IV fluids Hypomagnesemia, will replace IV Hypokalemia, receiving IV replacement Severe protein calorie malnutrition, anorexia, protein calorie malnutrition, physical deconditioning, muscle wasting, PT OT, dietary eval, speech therapy eval NSTEMI ? With history of CAD ? No complaints of chest pain ? Cardiac echo CONCLUSIONS ?LV systolic function is normal with EF of 55-60% ?Grade 1 diastolic dysfunction ?Mild tricuspid regurgitation ?Compared to prior echocardiogram from 2016, no significant ?changes are seen ? Continue Plavix ? Has allergy to statin ? Heparin drip currently on hold due to anemia ?venous ultrasound negative for DVT, CT of the chest negative for PE Anemia, heme lobe and down to 7.7, she does have evidence of Hemoccult positive stools, likely slow GI bleed -Stop Plavix -Lovenox on hold -Transfuse 1 unit PRBC, monitor hemoglobin -Protonix, Carafate -Monitor hemoglobin trend if it continues to downward trend, will consider EGD Monitor for refeeding syndrome Goals of care discussion, DNR/DNI scd for DVT prophylaxis Plan for today patient is developing early features of refeeding syndrome with hypocalcemia, hypokalemia hypomagnesemia we will replace, monitor closely is inpatient, hemoglobin is stable monitor hemoglobin closely, diarrhea stool studies ordered, increase Reglan to 10 mg 3 times daily, discussed risk and benefits of increasing Reglan's, including but not limited to tardive dyskinesia, she accepts these risk will increase the dose, monitor closely Attestations Medical Necessity Statement*: Patient requires hospitalization for developing early refeeding syndrome requiring replacement of electrolytes hypokalemia, hypomagnesemia, hypocalcemia requiring replacement, with anemia, with persistent nausea vomiting abdominal bloating, diarrhea Diagnoses Pancreatitis K85.90 Acute kidney injury N17.9 Hypokalemia E87.6 Hypotension I95.9 Benign essential HTN I10 Anorexia R63.0 Protein calorie malnutrition E46 Muscle wasting M62.50 Anemia D64.9 Gastroparesis K31.84 GI bleed K92.2 Refeeding syndrome E87.8
[2023-08-14] MEDS: HYDROcodone-acetaminophen 5-325 mg Tablet 1 TAB PO ×2 (12:13→18:18)
[2023-08-14] MEDS: metoclopramide 10 mg Tablet PO (16:07)
[2023-08-14] MEDS: oxyCODONE 5 mg IR Tab/Cap 20 MG PO (21:32)
[2023-08-15] VITALS (7 sets, daily range): BP systolic 95–117; BP diastolic 61–82; PULSE 86–100; RESP 15–18; TEMP 36.6–37; O2SAT 97–99
[2023-08-15] MEDS: metoclopramide 10 mg Tablet PO ×3 (00:16→17:27)
[2023-08-15 06:03] LABS: Basophils % 0.4 %; Eosinophils # 0.3 10^3/uL (0.0-0.8); Eosinophils % 4.2 %; Hematocrit 27.7 % (36-47); Lymphocytes # 2.7 10^3/uL (0.8-4.8); Lymphocytes % 38.5 %; Mean Corpuscular HGB Conc 32.9 g/dL (30-55); Mean Corpuscular Hemoglobin 30.6 pg (27-33); Mean Corpuscular Volume 93.3 fl (85-98); Mean Platelet Volume 11.6 fL (7.4-10.4); Monocytes # 0.6 10^3/uL (0.2-0.9); Monocytes % 8.1 %; Neutrophils # 3.45 10^3/uL (1.8-7.7); Neutrophils % 48.5 %; Nucleated Red Blood Cells % 0 %; Platelet Count 212 10^3/cmm (157-399); Red Blood Count 2.97 10^6/uL (3.85-5.65); Red Cell Distribution Width 13.8 % (12.1-15.1); White Blood Count 7.12 10^3/uL (3.29-11.43)
[2023-08-15 06:50] LABS: Alanine Aminotransferase 11 U/L (0-33); Albumin Level 2.4 g/dL (3.5-5.2); Alkaline Phosphatase 88 U/L (35-105); Aspartate Amino Transferase 11 U/L (0-32); Blood Urea Nitrogen 9 mg/dL (8-23); Calcium 7.7 mg/dL (8.5-10.5); Carbon Dioxide 13 mmol/L (22-29); Chloride 124 mmol/L (98-107); Globulin 2.1 g/dL (1.3-4.6); Glomerular Filtration Rate 45.1 mL/min (90-130); Glucose 93 mg/dL (65-115); Magnesium 1.1 mg/dL (1.7-2.3); Osmolality Calculated 296 mOsm/kg (285-295); Phosphorus 2.6 mg/dL (2.5-4.5); Sodium 144 mmol/L (136-145); Total Bilirubin 0.2 mg/dL (0.15-1.2); Total Protein 4.5 g/dL (6.6-8.7)
[2023-08-15] MEDS: sucralfate 1 gm Tablet PO ×2 (09:22→21:10)
[2023-08-15] MEDS: fluoxetine 20 mg Capsule 40 MG PO (09:22)
[2023-08-15] MEDS: ciprofloxacin 500 mg Tablet PO ×2 (09:22→21:10)
[2023-08-15] MEDS: multivitamin therapeutic Tablet 1 TAB PO (09:23)
[2023-08-15] MEDS: topiramate 25 mg Tablet 50 MG PO ×2 (09:23→17:27)
[2023-08-15] MEDS: magnesium sulfate premix 4 GM/100 ML PREMIX IV (09:25)
[2023-08-15] MEDS: calcium carbonate 500 mg Chew Tablet 1000 MG PO ×2 (09:27→21:10)
[2023-08-15] MEDS: potassium chloride ER 20 mEq Tablet PO (09:27)
[2023-08-15] MEDS: phosphorus 250 mg Tablet PO (09:27)
[2023-08-15] MEDS: oxyCODONE-APAP 10-325 mg Tablet 1 TAB PO ×2 (09:59→21:10)
[2023-08-15] MEDS: pantoprazole 40 mg SDV IVP ×2 (10:11→21:10)
[2023-08-15] MEDS: sodium chloride 0.9% 1,000 ML 75 ML IV (13:26)
--- NOTE | 2023-08-15 17:06 | P.PN_ITS ---
Subjective Subjective: Patient was seen this morning, does report diarrhea, no fevers, chills, does report that the increased dose of Reglan is helping some degree with her abdominal bloating, denies any bloody or black stools Vitals/I&O/Wt Last Vital Signs Temp 98.2 F 08/15/23 16:00 Pulse 92 08/15/23 16:00 Resp 15 08/15/23 16:00 BP 101/68 08/15/23 16:00 Pulse Ox 99 08/15/23 16:00 O2 Del Method Room Air 08/15/23 04:23 O2 Flow Rate 98 08/13/23 16:00 08/15/23 08/15/23 08/15/23 06:59 14:59 22:59 Intake Total 1700 / 1700 Output Total 500 / 1150 Balance -500 / 658.5106 1700 / 1700 Physical Exam Const: COMMON NORMALS: no acute distress and patient oriented x3 Resp: COMMON NORMALS: normal respiratory effort, No retractions, No use of accessory muscles and clear to auscultation bilaterally AUSCULTATION: clear to auscultation bilaterally Cardio: COMMON NORMALS: regular rate, regular rhythm, S1 normal heart sound present and S2 normal heart sound present RATE: regular rate RHYTHM: regular rhythm HEART SOUNDS: S1 normal heart sound present and S2 normal heart sound present GI: COMMON NORMALS: Normal to inspection, nondistended, normoactive bowel sounds present and non-tender Extremity: COMMON NORMALS: no pedal edema Neuro: COMMON NORMALS: patient oriented x3 Psych: COMMON NORMALS: mental status grossly normal Data 08/15/23 05:24 08/15/23 05:24 Micro: Microbiology 08/10/23 15:21 Blood Culture - Final Blood NO GROWTH AFTER 5 DAYS 08/10/23 15:21 Blood Culture - Final Blood NO GROWTH AFTER 5 DAYS A&P Assessment and plan (1) Pancreatitis: (2) Acute kidney injury: (3) Hypokalemia: (4) Hypotension: (5) Benign essential HTN: (6) Anorexia: (7) Protein calorie malnutrition: (8) Muscle wasting: (9) Anemia: (10) Gastroparesis: (11) GI bleed: (12) Refeeding syndrome: (13) Hypocalcemia: Plan Refeeding syndrome -Developing refeeding syndrome, with hypokalemia, hypophosphatemia, hypomagnesemia, hypocalcemia -We will need to monitor electrolytes as inpatient -Replace p.o. potassium, phosphorus, calcium, IV magnesium, p.o. magnesium -Monitor closely inpatient, telemetry monitoring Acute pancreatitis, resolving -No significant radiographic evidence of pancreatitis -Lipase is elevated at 1178 -Could be associate with nausea, vomiting, patient's weight loss -Plan -Advance to GI soft diet -IV hydration -Monitor lipase -Serial abdominal exams Weight loss associated with recurrent abdominal pain, abdominal distention, associated with feeding, adequate appetite reported -Likely secondary to gastroparesis IMPRESSION: Delayed gastric emptying *Normal median T1 half 90 minutes for solid egg meal (45-110 minutes). Delayed gastric retention is defined as 90% retained at 1 hour, 60% at 2 hours, 30% at 3 hours, and 10% at 4 hours (normal percent gastric retention is 37-90% at 1 hour, 30-60% at 2 hours, and 0-10% at 4 hours). -Currently on small-volume feeds -Dietary consulted -Scheduled Reglan 5 mg 3 times daily, extensively discussed with her the risk of tardive dyskinesia, after discussing the risk and benefits, she voiced understanding, all questions answered, agreed to proceed -CT chest abdomen pelvis did not show any significant radiographic evidence of mesenteric ischemia or arthrosclerosis, -The other thought is this could be gastroparesis, issues with gastric emptying, we will order gastric emptying scan -GLORIA ordered -HIV negative, hep C negative, ESR within normal limits -Patient does have evidence of muscle wasting, I am wondering if she has components of neurodegenerative disorder such as ALS, we will have her follow-up with neurology -She does report that she she wants to eat, she has a good appetite, no history of body dysmorphia or feeling down depressed or sad, I doubt that it is psyc hiatric disorder, Acute kidney injury ? IV fluids Uremia, second dehydration, IV fluids Elevated lactic acid, likely second dehydration, IV fluids Hypomagnesemia, will replace IV Hypokalemia, receiving IV replacement hypocalcemia Severe protein calorie malnutrition, anorexia, protein calorie malnutrition, physical deconditioning, muscle wasting, PT OT, dietary eval, speech therapy eval NSTEMI ? With history of CAD ? No complaints of chest pain ? Cardiac echo CONCLUSIONS ?LV systolic function is normal with EF of 55-60% ?Grade 1 diastolic dysfunction ?Mild tricuspid regurgitation ?Compared to prior echocardiogram from 2016, no significant ?changes are seen ? Continue Plavix ? Has allergy to statin ? Heparin drip currently on hold due to anemia ?venous ultrasound negative for DVT, CT of the chest negative for PE Anemia, heme lobe and down to 7.7, she does have evidence of Hemoccult positive stools, likely slow GI bleed -Stop Plavix -Lovenox on hold -s/p 1 unit PRBC, monitor hemoglobin -Protonix, Carafate -Monitor hemoglobin trend if it continues to downward trend, will consider EGD Monitor for refeeding syndrome Goals of care discussion, DNR/DNI scd for DVT prophylaxis Plan for today monitor diarrhea, C. difficile pending, monitor stool studies, h as refeeding syndrome, monitor electrolytes Attestations Medical Necessity Statement*: Patient requires hospitalization for refeeding syndrome, anemia gastroparesis, hypokalemia, hypocalcemia, hypomagnesemia, Diagnoses Pancreatitis K85.90 Acute kidney injury N17.9 Hypokalemia E87.6 Hypotension I95.9 Benign essential HTN I10 Anorexia R63.0 Protein calorie malnutrition E46 Muscle wasting M62.50 Anemia D64.9 Gastroparesis K31.84 GI bleed K92.2 Refeeding syndrome E87.8 Hypocalcemia E83.51
[2023-08-15] MEDS: magnesium lactate 84 mg Tablet PO (17:28)
[2023-08-15] MEDS: phenyleph-mineral oil-petrolat Oint 28 gm 1 APPLIC TOPICAL ×2 (17:28→21:17)
[2023-08-16] VITALS (10 sets, daily range): BP systolic 94–106; BP diastolic 61–71; PULSE 81–98; RESP 15–18; TEMP 36.6–36.9; O2SAT 97–99
[2023-08-16] MEDS: metoclopramide 10 mg Tablet PO ×3 (00:02→16:51)
[2023-08-16 04:30] LABS: Basophils % 0.4 %; Eosinophils # 0.2 10^3/uL (0.0-0.8); Eosinophils % 3.3 %; Hematocrit 28.1 % (36-47); Lymphocytes # 2.6 10^3/uL (0.8-4.8); Lymphocytes % 38.5 %; Mean Corpuscular HGB Conc 33.5 g/dL (30-55); Mean Corpuscular Hemoglobin 30.8 pg (27-33); Mean Corpuscular Volume 92.1 fl (85-98); Mean Platelet Volume 11.2 fL (7.4-10.4); Monocytes # 0.5 10^3/uL (0.2-0.9); Neutrophils % 50.4 %; Nucleated Red Blood Cells % 0 %; Platelet Count 251 10^3/cmm (157-399); Red Blood Count 3.05 10^6/uL (3.85-5.65); Red Cell Distribution Width 13.6 % (12.1-15.1); White Blood Count 6.75 10^3/uL (3.29-11.43)
[2023-08-16 05:00] LABS: Alanine Aminotransferase 9 U/L (0-33); Albumin Level 2.5 g/dL (3.5-5.2); Alkaline Phosphatase 90 U/L (35-105); Aspartate Amino Transferase 13 U/L (0-32); Blood Urea Nitrogen 8 mg/dL (8-23); Calcium 8.1 mg/dL (8.5-10.5); Carbon Dioxide 13 mmol/L (22-29); Chloride 121 mmol/L (98-107); Glomerular Filtration Rate 55.6 mL/min (90-130); Glucose 96 mg/dL (65-115); Osmolality Calculated 286 mOsm/kg (285-295); Phosphorus 2.8 mg/dL (2.5-4.5); Sodium 139 mmol/L (136-145); Total Bilirubin 0.2 mg/dL (0.15-1.2); Total Protein 4.5 g/dL (6.6-8.7)
[2023-08-16 05:01] LABS: Anion Gap 9.2 (5-19); Potassium 4.2 mmol/L (3.5-5.1)
[2023-08-16] MEDS: sodium chloride 0.9% 1,000 ML 75 ML IV ×2 (08:38→20:54)
[2023-08-16] MEDS: fluoxetine 20 mg Capsule 40 MG PO (08:39)
[2023-08-16] MEDS: phosphorus 250 mg Tablet PO (08:39)
[2023-08-16] MEDS: multivitamin therapeutic Tablet 1 TAB PO (08:39)
[2023-08-16] MEDS: magnesium lactate 84 mg Tablet PO ×2 (08:39→17:43)
[2023-08-16] MEDS: calcium carbonate 500 mg Chew Tablet 1000 MG PO ×2 (08:39→20:48)
[2023-08-16] MEDS: topiramate 25 mg Tablet 50 MG PO ×2 (08:39→17:43)
[2023-08-16] MEDS: ciprofloxacin 500 mg Tablet PO ×2 (08:39→20:49)
[2023-08-16] MEDS: sucralfate 1 gm Tablet PO ×2 (08:39→20:48)
[2023-08-16] MEDS: phenyleph-mineral oil-petrolat Oint 28 gm 1 APPLIC TOPICAL (08:40)
[2023-08-16] MEDS: potassium chloride ER 20 mEq Tablet PO (08:40)
[2023-08-16] MEDS: oxyCODONE-APAP 10-325 mg Tablet 1 TAB PO ×3 (08:42→22:12)
[2023-08-16] MEDS: pantoprazole 40 mg SDV IVP ×2 (09:45→20:49)
[2023-08-16] MEDS: ALPRAZolam 0.5 mg Tablet 0.25 MG PO ×2 (11:01→20:48)
--- NOTE | 2023-08-16 16:50 | P.PN_ITS ---
Subjective Subjective: Patient was seen this morning, she does report anxiety, she has had increased anxiety episodes over the night, does report increase abdominal pain, but this morning it is minimal, she tells me that the Reglan is helping her, denies any fevers, no chills Vitals/I&O/Wt Last Vital Signs Temp 98.1 F 08/16/23 12:00 Pulse 88 08/16/23 12:00 Resp 17 08/16/23 12:00 BP 101/65 08/16/23 12:00 Pulse Ox 97 08/16/23 12:00 O2 Del Method Nasal Cannula 08/16/23 07:19 O2 Flow Rate 98 08/13/23 16:00 08/16/23 08/16/23 08/16/23 06:59 14:59 22:59 Intake Total 417.5 / 2700.0 600 / 600 Output Total 400 / 1950 Balance 17.5 / 750.0 600 / 600 Physical Exam Const: COMMON NORMALS: no acute distress and patient oriented x3 Resp: COMMON NORMALS: normal respiratory effort, No retractions, No use of accessory muscles and clear to auscultation bilaterally AUSCULTATION: clear to auscultation bilaterally Cardio: COMMON NORMALS: regular rate, regular rhythm, S1 normal heart sound present and S2 normal heart sound present RATE: regular rate RHYTHM: regular rhythm HEART SOUNDS: S1 normal heart sound present and S2 normal heart sound present GI: COMMON NORMALS: Normal to inspection, nondistended, normoactive bowel sounds present and non-tender Extremity: COMMON NORMALS: no pedal edema Neuro: COMMON NORMALS: patient oriented x3 Data 08/16/23 03:57 08/16/23 Unknown Micro: Microbiology 08/10/23 12:09 E. coli Shiga-like Toxin (PCR) - Final Stool Salmonella/Shigella Culture - Final Campylobacter (PCR) - Final 08/10/23 15:21 Blood Culture - Final Blood NO GROWTH AFTER 5 DAYS 08/10/23 15:21 Blood Culture - Final Blood NO GROWTH AFTER 5 DAYS A&P Assessment and plan (1) Pancreatitis: (2) Acute kidney injury: (3) Hypokalemia: (4) Hypotension: (5) Benign essential HTN: (6) Anorexia: (7) Protein calorie malnutrition: (8) Muscle wasting: (9) Anemia: (10) Gastroparesis: (11) GI bleed: (12) Refeeding syndrome: (13) Hypocalcemia: Plan Refeeding syndrome -Developing refeeding syndrome, with hypokalemia, hypophosphatemia, hypomagnesemia, hypocalcemia -We will need to monitor electrolytes as inpatient -Replace p.o. potassium, phosphorus, calcium, IV magnesium, p.o. magnesium -Monitor closely inpatient, telemetry monitoring Acute pancreatitis, resolving -No significant radiographic evidence of pancreatitis -Lipase is elevated at 1178 -Could be associate with nausea, vomiting, patient's weight loss -Plan -Advance to GI soft diet -IV hydration -Monitor lipase -Serial abdominal exams Weight loss associated with recurrent abdominal pain, abdominal distention, associated with feeding, adequate appetite reported -Likely secondary to gastroparesis IMPRESSION: Delayed gastric emptying *Normal median T1 half 90 minutes for solid egg meal (45-110 minutes). Delayed gastric retention is defined as 90% retained at 1 hour, 60% at 2 hours, 30% at 3 hours, and 10% at 4 hours (normal percent gastric retention is 37-90% at 1 hour, 30-60% at 2 hours, and 0-10% at 4 hours). -Currently on small-volume feeds -Dietary consulted -Scheduled Reglan 5 mg 3 times daily, extensively discussed with her the risk of tardive dyskinesia, after discussing the risk and benefits, she voiced understanding, all questions answered, agreed to proceed -CT chest abdomen pelvis did not show any significant radiographic evidence of mesenteric ischemia or arthrosclerosis, -The other thought is this could be gastroparesis, issues with gastric emptying, we will order gastric emptying scan -GLORIA ordered -HIV negative, hep C negative, ESR within normal limits -Patient does have evidence of muscle wasting, I am wondering if she has components of neurodegenerative disorder such as ALS, we will have her follow-up with neurology -She does report that she she wants to eat, she has a good appetite, no history of body dysmorphia or feeling down depressed or sad, I doubt that it is psychiatric disorder, Acute kidney injury ? IV fluids Uremia, second dehydration, IV fluids Elevated lactic acid, likely second dehydration, IV fluids Hypomagnesemia, will replace IV Hypokalemia, receiving IV replacement hypocalcemia Severe protein calorie malnutrition, anorexia, protein calorie malnutrition, physical deconditioning, muscle wasting, PT OT, dietary eval, speech therapy eval NSTEMI ? With history of CAD, history of RCA stenosis ? No complaints of chest pain ? Cardiac echo CONCLUSIONS ?LV systolic function is normal with EF of 55-60% ?Grade 1 diastolic dysfunction ?Mild tricuspid regurgitation ?Compared to prior echocardiogram from 2016, no significant ?changes are seen ? Continue Plavix ? Has allergy to statin ? Heparin drip currently on hold due to anemia ?venous ultrasound negative for DVT, CT of the chest negative for PE Anemia, heme lobe and down to 7.7, she does have evidence of Hemoccult positive stools, likely slow GI bleed -coutinuePlavix -s/p 1 unit PRBC, monitor hemoglobin -Protonix, Carafate -Monitor hemoglobin trend if it continues to downward trend, will consider EGD Monitor for refeeding syndrome Goals of care discussion, DNR/DNI scd for DVT prophylaxis Plan for today monitor diarrhea, C. difficile pending, monitor stool studies, h as refeeding syndrome, monitor electrolytes, start in the next anxiety Attestations Medical Necessity Statement*: Patient requires hospitalization for NSTEMI, anemia, refeeding syndrome, gastroparesis, UTI Diagnoses Pancreatitis K85.90 Acute kidney injury N17.9 Hypokalemia E87.6 Hypotension I95.9 Benign essential HTN I10 Anorexia R63.0 Protein calorie malnutrition E46 Muscle wasting M62.50 Anemia D64.9 Gastroparesis K31.84 GI bleed K92.2 Refeeding syndrome E87.8 Hypocalcemia E83.51
[2023-08-16] MEDS: clopidogrel 75 mg Tablet PO (17:43)
[2023-08-16 18:40] LABS: DNA AB (DS) CRITHIDIA,IFA NEGATIVE (NEGATIVE)
[2023-08-17] MEDS: metoclopramide 10 mg Tablet PO ×2 (00:51→08:57)
[2023-08-17 04:00] VITALS: BP 100/67; PULSE 94; RESP 13; TEMP 36.6; O2SAT 98
[2023-08-17 05:05] LABS: Basophils % 0.7 %; Eosinophils # 0.2 10^3/uL (0.0-0.8); Eosinophils % 3.3 %; Hematocrit 30.1 % (36-47); Lymphocytes # 1.9 10^3/uL (0.8-4.8); Lymphocytes % 34.8 %; Mean Corpuscular HGB Conc 30.9 g/dL (30-55); Mean Corpuscular Hemoglobin 30.1 pg (27-33); Mean Corpuscular Volume 97.4 fl (85-98); Mean Platelet Volume 11.1 fL (7.4-10.4); Monocytes # 0.4 10^3/uL (0.2-0.9); Monocytes % 7.4 %; Neutrophils # 2.95 10^3/uL (1.8-7.7); Neutrophils % 53.4 %; Nucleated Red Blood Cells % 0 %; Platelet Count 232 10^3/cmm (157-399); Red Blood Count 3.09 10^6/uL (3.85-5.65); Red Cell Distribution Width 13.6 % (12.1-15.1); White Blood Count 5.52 10^3/uL (3.29-11.43)
[2023-08-17 05:29] LABS: Alanine Aminotransferase 10 U/L (0-33); Albumin Level 2.6 g/dL (3.5-5.2); Alkaline Phosphatase 100 U/L (35-105); Anion Gap 11.8 (5-19); Aspartate Amino Transferase 10 U/L (0-32); Blood Urea Nitrogen 9 mg/dL (8-23); Calcium 7.9 mg/dL (8.5-10.5); Carbon Dioxide 12 mmol/L (22-29); Chloride 123 mmol/L (98-107); Globulin 2.1 g/dL (1.3-4.6); Glomerular Filtration Rate 55.6 mL/min (90-130); Glucose 119 mg/dL (65-115); Magnesium 1.5 mg/dL (1.7-2.3); Osmolality Calculated 296 mOsm/kg (285-295); Phosphorus 2.7 mg/dL (2.5-4.5); Potassium 3.8 mmol/L (3.5-5.1); Sodium 143 mmol/L (136-145); Total Bilirubin 0.2 mg/dL (0.15-1.2); Total Protein 4.7 g/dL (6.6-8.7)
[2023-08-17 08:00] VITALS: BP 117/80; PULSE 89; RESP 15; TEMP 37; O2SAT 100
[2023-08-17] MEDS: phosphorus 250 mg Tablet PO (08:55)
[2023-08-17] MEDS: topiramate 25 mg Tablet 50 MG PO (08:55)
[2023-08-17] MEDS: calcium carbonate 500 mg Chew Tablet 1000 MG PO (08:55)
[2023-08-17 08:56] VITALS: RESP 14
[2023-08-17] MEDS: multivitamin therapeutic Tablet 1 TAB PO (08:56)
[2023-08-17] MEDS: magnesium lactate 84 mg Tablet PO (08:56)
[2023-08-17] MEDS: potassium chloride ER 20 mEq Tablet PO (08:56)
[2023-08-17] MEDS: oxyCODONE-APAP 10-325 mg Tablet 1 TAB PO (08:56)
[2023-08-17] MEDS: fluoxetine 20 mg Capsule 40 MG PO (08:56)
[2023-08-17] MEDS: ciprofloxacin 500 mg Tablet PO (08:56)
[2023-08-17] MEDS: sucralfate 1 gm Tablet PO (08:57)
[2023-08-17] MEDS: clopidogrel 75 mg Tablet PO (08:57)
[2023-08-17] MEDS: phenyleph-mineral oil-petrolat Oint 28 gm 1 APPLIC TOPICAL (09:00)
[2023-08-17] MEDS: pantoprazole 40 mg SDV IVP (09:55)
[2023-08-17] MEDS: magnesium sulfate premix 2 GM/50 ML PIGGYBACK IV (09:55)
[2023-08-17] MEDS: ALPRAZolam 0.5 mg Tablet 0.25 MG PO (10:03)
[2023-08-17 11:06] VITALS: BP 101/66; PULSE 82; RESP 15; TEMP 37; O2SAT 97
--- NOTE | 2023-08-17 12:21 | PC.SOCIAL ---
IMM Update pg 2 of IMM updated and reviewed w/ patient. Copy provided and copy in chart dated, and initialed.
--- NOTE | 2023-08-17 12:49 | P.DS_ITS ---
Discharge Providers Date of Admission: 08/10/23 16:57 Date of Discharge: August 17, 2023 Attending Provider at Admission: Paco Meng MD Attending Provider at Discharge: Paco Meng MD Primary Care Provider: Anabel Bishop MD Diagnoses at Discharge Discharge Diagnosis (1) Pancreatitis: Status: Acute (2) Acute kidney injury: Status: Acute (3) Hypokalemia: Status: Acute (4) Hypotension: Status: Acute (5) Benign essential HTN: Status: Acute (6) Anorexia: Status: Acute (7) Protein calorie malnutrition: Status: Acute (8) Muscle wasting: Status: Acute (9) Anemia: Status: Acute (10) Gastroparesis: Status: Acute (11) GI bleed: Status: Acute (12) Refeeding syndrome: Status: Acute (13) Hypocalcemia: Status: Acute Reason for Visit Reason for Visit: diarrhea x10 days Hospital Course Hospital Course Angelika Reilly is a 67 year old female with a past medical history of hypertension who presents [facility] due to nausea, vomiting, poor appetite, fatigue, malaise,, diarrhea.? According to patient she has lost weight over the last past few months, she is not exactly sure why, she has seen her primary care physician for this, she has had a poor appetite, she does that she gets full easily, she does not really complain of abdominal pain, but is been having diarrhea, fatigue, malaise, no fevers, no chest pain, no palpitations, no lightheadedness, no dizziness, no falls.? She denies a personal family history of cancers.? Her BMI is 14.2. Patient had a prolonged hospitalization, please look at my last progress note for further detail Patient was admitted to [facility] for weight loss, fatigue, malaise, abdominal pain, distention, associated with gastroparesis, seen on gastric emptying study, managed with increasing doses of Reglan, overall symptomatology improved, discharged with GI safe diet, instructions to follow-up with gastroenterology in the next few days, discharged on Reglan 10 mg 3 times daily as needed to be used 30 minutes before meals. I had extensive discussion with her about her risk of tardive dyskinesia, with Reglan, it should not be used more than prescribed, should not be used more than 6 weeks in a row, due to risk of tardive dyskinesia, if she does have any muscle spasms come to the emergency room. After discussing the risk and benefits of Reglan, she voiced unde rstanding, all questions answered, shared decision making, agreed to proceed. , She needs to follow-up with her primary care provider for weekly blood pressure and weight checks, if she loses more than 5 pounds, or if she does not gain enough weight in the next month or so, should strongly consider PEG tube placement For her hospitalization she did develop refeeding syndrome, developing hypokal emia, hypophosphatemia, hypomagnesia, hypocalcemia, requiring IV replacement, discharged on electrolytes including potassium, phosphorus, magnesium, calcium as outpatient, follow-up with primary care provider for following electrolytes For acute pancreatitis, likely secondary to weight loss, anorexia, managed with IV hydration, serial abdominal exams, overall clinically improved, discharged on GI soft diet Had MICHEAL during hospitalization, improved with IV fluids Had uremia during hospitalization improved with IV fluids She did also have an NSTEMI during hospitalization, likely secondary to dehydration, MICHEAL, weight loss, echocardiogram no significant wall motion abnormalities or diminished ejection fraction, discharged with close follow-up cardiology as outpatient, continue home medications She did develop anemia during hospitalization, Hemoccult stools positive, was on a heparin drip for NSTEMI above which was discontinued, hemoglobin stable, hemodynamic stable, no bloody or black stools. Given her NSTEMI as above and her history of CAD, resume Plavix on discharge, hemoglobin discharge 9.3, monitor hemoglobin as outpatient, discharged on Protonix, with close follow-up with general surgery as outpatient for consideration of EGD and colonoscopy, if she were to have any bloody or black stools or recurrent anemia please come back to emergency room. - Please drink electrolyte balanced fluids throughout the day ? Ensure drinks 3 times a day ? Take electrolyte replacement as prescribed ? Please see primary care provider for recheck electrolytes ? Potassium discharge 3.8 ? Magnesium on discharge 1.5 ? Phosphorus on discharge 2.7 ? Calcium on discharge 7.9 ? For your anemia, please follow-up with general surgery, please continue Protonix, hemoglobin 9.3, if you develop bloody or black stools please go to emergency room ? Please follow-up with gastroenterology in the next few days for gastroparesis, ? Please use alprazolam sparingly for anxiety, do not drive operate machinery or drink while taking medication ? I have discharged you on Reglan 10 mg 3 times daily as needed before meals for your gastroparesis, do not use this medication for more than 6 weeks paige nuously, due to risk of tardive dyskinesia -If you do develop muscle spasms, purposeless movements, please come back to the emergency room as this is an indicator of tardive dyskinesia -Please follow-up with primary care provider, recheck weight every week, if you lose more than 5 pounds, we should strongly consider PEG tube placement -For your heart, please follow-up with cardiology, if you have any chest pain or palpitations go to emergency room for her anorexia Physical Exam Const: COMMON NORMALS: no acute distress and patient oriented x3 Resp: COMMON NORMALS: normal respiratory effort, No retractions, No use of accessory muscles and clear to auscultation bilaterally AUSCULTATION: clear to auscultation bilaterally Cardio: COMMON NORMALS: regular rate, regular rhythm, S1 normal heart sound present and S2 normal heart sound present RATE: regular rate RHYTHM: regular rhythm HEART SOUNDS: S1 normal heart sound present and S2 normal heart sound present GI: COMMON NORMALS: Normal to inspection, nondistended, normoactive bowel sounds present and non-tender Extremity: COMMON NORMALS: no pedal edema Neuro: COMMON NORMALS: patient oriented x3 Psych: COMMON NORMALS: mental status grossly normal Discharge Data Studies Completed and Pending Completed Studies During Hospitalization Category Date Time Status CTA chest CT abdomen pelvis [CT angio chest w abd pel w Cat Scan 08/10/23 14:57 Completed con] Stat XR chest 1V portable [id number] Stat Exams 08/10/23 13:56 Com[address] [place] [id number] Routine Nuc Med 08/12/23 08:00 [place] [id number] Stat Ultrasound 08/10/23 17:07 Completed CV. echo complete* [id number] Stat Ultrasound 08/10/23 17:07 Completed Pending at discharge Category Date Time Status Celiac Disease Comprenhensive Routine Lab 08/11/23 11:55 Results Clostridium Difficile PCR Routine Lab 08/14/23 05:30 Received Complete Blood Count w/Auto AM LABS Lab 08/18/23 04:00 Ordered Complete Blood Count w/Auto AM LABS Lab 08/19/23 04:00 Ordered Comprehensive Metabolic Panel AM LABS Lab 08/18/23 04:00 Ordered Comprehensive Metabolic Panel AM LABS Lab 08/19/23 04:00 Ordered Magnesium AM LABS Lab 08/18/23 04:00 Ordered Magnesium AM LABS Lab 08/19/23 04:00 Ordered OVA and Parasites, Conc and PE Routine Lab 08/10/23 12:09 Results Phosphorus AM LABS Lab 08/18/23 04:00 Ordered Phosphorus AM LABS Lab 08/19/23 04:00 Ordered Salmonella / Shigella / Campy Routine Lab 08/10/23 12:09 Results Radiology Impressions Chest/Abdomen/Pelvis CT 08/10/23 14:57 IMPRESSION: 1. No pulmonary embolism. 2. Additional details as above. IMPRESSION: 1. New moderate L1 vertebral body compression deformity. Uncertain age. MRI could clarify if needed. 2. No other acute findings. 3. Additional details as above. Venous Duplex 08/10/23 17:07 IMPRESSION: No evidence of deep vein thrombosis. Laboratory Results WBC 5.52 10^3/uL (3.29-11.43) 08/17/23 04:41 RBC 3.09 10^6/uL (3.85-5.65) L 08/17/23 04:41 Hgb 9.30 g/dL (11.27-16.99) L 08/17/23 04:41 Hct 30.1 % (36-47) L 08/17/23 04:41 MCV 97.4 fl (85-98) 08/17/23 04:41 MCH 30.1 pg (27-33) 08/17/23 04:41 MCHC 30.9 g/dL (30-55) D 08/17/23 04:41 RDW 13.6 % (12.1-15.1) 08/17/23 04:41 Plt Count 232 10^3/cmm (157-399) 08/17/23 04:41 MPV 11.1 fL (7.4-10.4) H 08/17/23 04:41 Neut % (Auto) 53.4 % 08/17/23 04:41 Lymph % (Auto) 34.8 % 08/17/23 04:41 [place] % (Auto) 7.4 % 08/17/23 04:41 Eos % (Auto) 3.3 % 08/17/23 04:41 Baso % (Auto) 0.7 % 08/17/23 04:41 Neut # (Auto) 2.95 10^3/uL (1.8-7.7) 08/17/23 04:41 Lymph # (Auto) 1.9 10^3/uL (0.8-4.8) 08/17/23 04:41 [place] # (Auto) 0.4 10^3/uL (0.2-0.9) 08/17/23 04:41 Eos # (Auto) 0.2 10^3/uL (0.0-0.8) 08/17/23 04:41 Baso # (Auto) 0.0 10^3/uL (0.0-0.1) 08/17/23 04:41 Nucleated RBC % (auto) 0 % 08/17/23 04:41 Nucleated RBCs # 0.0 /100WBC 08/17/23 04:41 ESR 9 mm/hr (0-15) 08/11/23 10:58 APTT 55.8 SECONDS (23.9-36.7) H D 08/11/23 18:23 D-Dimer 6.84 ug/mLFEU (0-0.59) H 08/10/23 12:50 Sodium 143 mmol/L (136-145) 08/17/23 04:41 Potassium 3.8 mmol/L (3.5-5.1) 08/17/23 04:41 Chloride 123 mmol/L (98-107) H 08/17/23 04:41 Carbon Dioxide 12 mmol/L (22-29) L 08/17/23 04:41 Anion Gap 11.8 (5-19) 08/17/23 04:41 BUN 9 mg/dL (8-23) 08/17/23 04:41 Creatinine 1.0 mg/dL (0.5-0.9) H 08/17/23 04:41 GFR Calculation 55.6 mL/min (90-130) L 08/17/23 04:41 Glucose 119 mg/dL (65-115) H 08/17/23 04:41 POC Glucose 105 mg/dL (70-110) 08/12/23 12:04 Estimat Average Glucose 105 08/10/23 12:50 Hemoglobin A1c 5.3 % (4.0-6.0) 08/10/23 12:50 Calculated Osmolality 296 mOsm/kg (285-295) H 08/17/23 04:41 Lactic Acid 3.2 mmol/L (0.5-2.2) H 08/10/23 13:13 Lactic Acid (Sepsis) 1.0 mmol/L (0.5-2.2) 08/10/23 16:42 Calcium 7.9 mg/dL (8.5-10.5) L 08/17/23 04:41 Phosphorus 2.7 mg/dL (2.5-4.5) 08/17/23 04:41 Magnesium 1.5 mg/dL (1.7-2.3) L 08/17/23 04:41 Ferritin 401 ng/mL (15-150) H 08/11/23 04:21 Total Bilirubin 0.2 mg/dL (0.15-1.2) 08/17/23 04:41 GGT 14 U/L (5-36) 08/10/23 12:50 AST 10 U/L (0-32) 08/17/23 04:41 ALT 10 U/L (0-33) 08/17/23 04:41 Alkaline Phosphatase 100 U/L (35-105) 08/17/23 04:41 Ammonia 11 umol/L (11-51) 08/10/23 20:35 Troponin T Baseline 202 ng/L (0-10) H* 08/10/23 12:50 Troponin T 120 Minute 173.1 ng/L (0-10) H 08/10/23 15:21 Delta Troponin T -28.9 ABS# (0-10) L 08/10/23 15:21 Troponin T Hi Sens 6Hr 159.6 ng/L (0-10) H 08/10/23 18:38 Troponin T Hi Sens 6Hr Delta -42.4 ng/L (0-12) L 08/10/23 18:38 C-Reactive Protein 13.4 mg/L (0.0-4.9) H 08/10/23 12:50 Total Protein 4.7 g/dL (6.6-8.7) L 08/17/23 04:41 Albumin 2.6 g/dL (3.5-5.2) L 08/17/23 04:41 Globulin 2.1 g/dL (1.3-4.6) 08/17/23 04:41 Triglycerides 122 mg/dL (0-150) 08/10/23 18:38 Cholesterol 85 mg/dL (0-200) 08/10/23 18:38 LDL Cholesterol, Calc 23 mg/dL (50-129) L 08/10/23 18:38 HDL Cholesterol 38 mg/dL (60-100) L 08/10/23 18:38 LDL/HDL Ratio 0.61 RATIO (0.00-3.22) 08/10/23 18:38 Cholesterol/HDL Ratio 2.24 mg/dL (0.0-4.40) 08/10/23 18:38 Lipase 480 U/L (13-60) H 08/13/23 05:41 Vitamin B12 1569 pg/mL (232-1245) H 08/11/23 04:21 Folate > 20.0 ng/mL (4.8-37.3) 08/11/23 10:58 Procalcitonin 0.18 ng/mL (0-0.5) 08/10/23 12:50 TSH 1.13 uIU/mL (0.27-4.20) 08/10/23 18:38 Free T4 1.84 ng/dL (0.82-1.77) H 08/10/23 15:21 Free T3 2.1 PG/ML (2.0-4.4) 08/10/23 15:21 Urine Color Yellow (Yellow) 08/10/23 14:48 Urine Appearance Sl hazy (CLEAR) A 08/10/23 14:48 Urine pH 5 (5-7) 08/10/23 14:48 Ur Specific [place] 1.010 (1.005-1.030) 08/10/23 14:48 Urine Protein Trace (Negative) 08/10/23 14:48 Urine Glucose (UA) Norm (Normal) 08/10/23 14:48 Urine Ketones 1+ (Negative) H 08/10/23 14:48 Urine Blood Neg (Negative) 08/10/23 14:48 Urine Nitrate Negative (Negative) 08/10/23 14:48 Urine Bilirubin Neg (Negative) 08/10/23 14:48 Urine Urobilinogen Norm mg/dL (Negative) 08/10/23 14:48 Ur Leukocyte Esterase 2+ (Negative) H 08/10/23 14:48 Urine RBC 0-4 /hpf (0-2) H 08/10/23 14:48 Urine WBC 25-40 /hpf (0-5) H 08/10/23 14:48 Ur Squamous Epith Cells 5-10 /hpf (0-5) H 08/10/23 14:48 Amorphous Sediment Not Reportable 08/10/23 14:48 Urine Bacteria 1+ /hpf (NONE) H 08/10/23 14:48 Hyaline Casts 0-4 /lpf H 08/10/23 14:48 Urine Mucus 1+ /hpf 08/10/23 14:48 Ethyl Alcohol < 10 mg/dL (0-10) 08/10/23 12:50 IgA 125 mg/dL (70-320) 08/11/23 11:55 GLORIA IFA Animal Tis Res Negative (NEGATIVE) 08/11/23 11:55 FATIMAH-1 Antibody <1.0 neg AI (<1.0 NEG) 08/11/23 11:55 SS-A Antibody <1.0 neg AI (<1.0 NEG) 08/11/23 11:55 SS-B Antibody <1.0 neg AI (<1.0 NEG) 08/11/23 11:55 Sm (Corey) Antibody <1.0 neg AI (<1.0 NEG) 08/11/23 11:55 [employer] Antibody <1.0 neg AI (<1.0 NEG) 08/11/23 11:55 Scl-70 Antibody <1.0 neg AI (<1.0 NEG) 08/11/23 11:55 Anti-ds DNA IgG (Crith) Negative (NEGATIVE) 08/11/23 11:55 Centromere B Antibody <1.0 neg AI (<1.0 NEG) 08/11/23 11:55 Tiss Transglutamin IgA <1.0 U/mL 08/11/23 11:55 Thyroid Peroxidase Ab <1 IU/mL (<9) 08/11/23 11:55 Celiac Disease Interp See note 08/11/23 11:55 Complement C3c 108 mg/dL (83-193) 08/11/23 11:55 Complement C4c 42 mg/dL (15-57) 08/11/23 11:55 CH50 Classical Pathway >60 U/mL (31-60) H 08/11/23 11:55 C. difficile Tox (PCR) Not detected (NOT DETECTED) 08/10/23 17:25 Hepatitis A IgM Ab Non-reactive (Nonreactive) 08/11/23 10:58 Hep Bs Antigen Non-reactive (Nonreactive) 08/11/23 10:58 Hep B Core IgM Ab Non-reactive (Nonreactive) 08/11/23 10:58 Hepatitis C Antibody Non-reactive (Nonreactive) 08/11/23 10:58 HIV 1&2 Ab & HIV 1 Ag Non-reactive (Non-Reactiv) 08/11/23 10:58 HIV 1&2 Antibody Non-reactive (Non-Reactiv) 08/11/23 10:58 Blood Type A Negative 08/11/23 11:50 Rho(D) Type Negative 08/11/23 11:50 Antibody Screen Negative 08/11/23 11:50 Crossmatch See Detail 08/11/23 11:50 Vitals Last Vital Signs Temp 98.6 F 08/17/23 11:06 Pulse 82 08/17/23 11:06 Resp 15 08/17/23 11:06 BP 101/66 08/17/23 11:06 Pulse Ox 97 08/17/23 11:06 O2 Del Method Room Air 08/17/23 11:06 O2 Flow Rate 98 08/13/23 16:00 Discharge Plan Discharge Patient Disposition: Home Health Service Condition: Stable Prescriptions: New alprazolam 0.5 mg Tablet 0.25 mg PO BID PRN (Reason: Anxiety) 7 Days Qty: 4 0RF multivitamin with folic acid [Thera] 400 mcg Tablet 1 tab PO DAILY 30 Days Qty: 30 0RF magnesium L-lactate [Magtab] 84 mg Tablet Extended Release 84 mg PO BID 30 Days Qty: 60 0RF calcium carbonate 400 mg calcium (1,000 mg) tablet,chewable 400 mg PO BID 30 Days Qty: 60 0RF simethicone [Infants Simethicone] 40 mg/0.6 mL Drops,Suspension 40 mg PO QID PRN (Reason: Flatulence) 30 Days Qty: 30 0RF ciprofloxacin HCl 500 mg Tablet 500 mg PO BID@0900,2100 2 Days Qty: 6 0RF metoclopramide HCl 10 mg Tablet 10 mg PO Q8H PRN (Reason: 30 min before melas) 30 Days Qty: 90 0RF potassium chloride [Klor-Con M20] 20 mEq Tablet,Er Particles/Crystals 20 meq PO DAILY 30 Days Qty: 30 0RF Phosphorous 250 mg tablet 1 tab PO DAILY 30 Days Qty: 30 0RF Continued fluoxetine [Prozac] 20 mg capsule 40 mg PO DAILY topiramate [Topamax] 50 mg tablet 50 mg PO BID nitroglycerin [Nitrostat] 0.4 mg tablet, sublingual 0.4 mg SUBLINGUAL Q5M PRN (Reason: chest pain) Qty: 1 0RF Repatha SureClick 140 mg/mL pen injector 140 mg SUBCUT Q14D Qty: 6 3RF albuterol sulfate [Ventolin HFA] 90 mcg/actuation Hfa Aerosol Inhaler 2 puff INHALATION Q6H PRN (Reason: Shortness Of Breath) budesonide-formoterol [Symbicort] 80-4.5 mcg/actuation Hfa Aerosol Inhaler 1 inh INHALATION BID PRN (Reason: Shortness Of Breath) Centrum Women 18-400 mg-mcg Tablet 1 tab PO DAILY Plavix 75 mg tablet 75 mg PO QAM oxycodone 10 mg tablet See Rx Instructions .ROUTE .COMPLEX Rx Instructions: 10 - 20 mg orally every 4 to 6 hours as needed for pain pantoprazole 40 mg tablet,delayed release (DR/EC) 40 mg PO BID 30 Days Qty: 60 0RF Discontinued lisinopril 10 mg tablet 10 mg PO DAILY Qty: 90 3RF metoprolol tartrate 50 mg tablet 50 mg PO BID 90 Days Qty: 180 3RF Klor-Con M20 20 mEq tablet,ER particles/crystals 20 meq PO DAILY Qty: 90 3RF Discharge Orders: Discharge Order (Routine); Ordered 08/17/23 Ordered By: Paco Meng Other Ambulatory Orders: DME: Atul (Order) Location: None Selected Ordered By: Paco Meng Referrals: [facility] ([facility]) [Outside] Anabel Bishop MD [Primary Care Provider] - 08/19/23 9:40 am Hector Sosa MD [Referring] - 1-3 days (gastroparesis) Dwayne Costello MD [Physician] - 1 week Discharge Diet: As Directed Discharge Activity: Resume usual activity Patient Instructions: Opioid Safety Activity Restrictions/Additional Instructions: - Please drink electrolyte balanced fluids throughout the day ? Ensure drinks 3 times a day ? Take electrolyte replacement as prescribed ? Please see primary care provider for recheck electrolytes ? Potassium discharge 3.8 ? Magnesium on discharge 1.5 ? Phosphorus on discharge 2.7 ? Calcium on discharge 7.9 ? For your anemia, please follow-up with general surgery, please continue Protonix, hemoglobin 9.3, if you develop bloody or black stools please go to emergency room ? Please follow-up with gastroenterology in the next few days for gastroparesis, ? Please use alprazolam sparingly for anxiety, do not drive operate machinery or drink while taking medication ? I have discharged you on Reglan 10 mg 3 times daily as needed before meals for your gastroparesis, do not use this medication for more than 6 weeks continuously, due to risk of tardive dyskinesia -If you do develop muscle spasms, purposeless movements, please come back to the emergency room as this is an indicator of tardive dyskinesia -Please follow-up with primary care provider, recheck weight every week, if you lose more than 5 pounds, we should strongly consider PEG tube placement -For your heart, please follow-up with cardiology, if you have any chest pain or palpitations go to emergency room Discharge Attestations Time Spent in Discharge Care*: greater than 30 min Quality Metrics Clinical Quality Measures [ No reported AMI, CVA or VTE this stay] Coding Level of Care Code 29126 Total time (in minutes) for Discharge: 45 Diagnoses Pancreatitis K85.90 Acute kidney injury N17.9 Hypokalemia E87.6 Hypotension I95.9 Benign essential HTN I10 Anorexia R63.0 Protein calorie malnutrition E46 Muscle wasting M62.50 Anemia D64.9 Gastroparesis K31.84 GI bleed K92.2 Refeeding syndrome E87.8 Hypocalcemia E83.51
[2023-08-17 14:47] VITALS: BP 101/66; PULSE 82; RESP 15; TEMP 37; O2SAT 97
== END 2023-08-17 14:48 | disposition home health service (06) | DRG 438 ==
LOC: ER 17:21 → MEDSURG 17:57
PROVIDERS: Admitting Provider Family Medicine; Emergency Provider Family Medicine; PCP Family Medicine; Visit Provider Family Medicine
DX: K85.90 Acute pancreatitis without necrosis or infection, unspecified (principal); I21.4 Non-ST elevation (NSTEMI) myocardial infarction; E46 Unspecified protein-calorie malnutrition; Z68.1 Body mass index [BMI] 19.9 or less, adult; N17.9 Acute kidney failure, unspecified; E87.6 Hypokalemia; I10 Essential (primary) hypertension; M62.50 Muscle wasting and atrophy, not elsewhere classified, unspecified site; I95.9 Hypotension, unspecified; R63.0 Anorexia; E87.8 Other disorders of electrolyte and fluid balance, not elsewhere classified; E83.51 Hypocalcemia; E86.0 Dehydration; F17.200 Nicotine dependence, unspecified, uncomplicated
CPT/HCPCS: 36415; 36416; 36430; 71045; 71275; 74177; 78264; 80053; 80061; 80074; 80307; 81001; 82140; 82274; 82607; 82728; 82746; 82784; 82962; 82977; 83036; 83516; 83605; 83630; 83690; 83735; 84100; 84145; 84439; 84443; 84481; 84484; 85014; 85018; 85025; 85378; 85651; 85730; 86140; 86160; 86162; 86235; 86255; 86376; 86850; 86900; 86920; 87040; 87045; 87077; 87086; 87177; 87186; 87209; 87427; 87449; 87493; 87806; 90471; 90686; 90732; 92610; 93005; 93306; 93970; 96365; 96366; 96367; 97116; 97161; 97167; 97530; 97535; 99285; A9541; C9113; J0696; J1644; J2405; J2765; J3475; J3480; J7030; J8597; P9016; Q9967

== ENCOUNTER → 2024-01-21 12:01 | Outpatient (BNVA) | payer MEDICARE, MEDICAID, SELFPAY | PROVIDERS: PCP Family Medicine; Visit Provider Nurse Practitioner Family | DX: I25.118 Atherosclerotic heart disease of native coronary artery with other forms of angina pectoris (principal); I10 Essential (primary) hypertension; I49.9 Cardiac arrhythmia, unspecified; R00.0 Tachycardia, unspecified | CPT/HCPCS: 36415; 80053; 85025; 99214 ==